=== PATIENT | male | born 1945 | race African-American/Black ===

== ENCOUNTER 2017-11-11 16:50 | Inpatient (IN) | payer BC, OTHER ==
--- NOTE | 2017-11-11 18:19 | RAD REPORT ---
EXAM DESCRIPTION: [facility] Single View11/11/2017 5:49 pm CLINICAL HISTORY: Chest pain COMPARISON: September 2017 FINDINGS: Mild bilateral pulmonary opacities are present. The heart is mildly enlarged. A central venous catheter has its limbs in the right atrium. Tracheosto my tube is in place IMPRESSION: Mild bilateral pulmonary opacities may represent pulmonary edema or pneumonia
[2017-11-11 18:25] LABS: Absolute Lymphocytes (CBC) 1.7 K/uL (0.7-4.9); Absolute Monocytes 0.7 K/uL (0.1-1.3); Absolute Neutrophil 5.4 K/uL (1.8-8.0); Basophils % 0.7 % (0-1.3); Eosinophils % 6.9 % (0-4.4); Hematocrit 35.2 % (39.6-49.0); Lymphocytes % 19.9 % (15.3-44.8); MCH 31.8 pg (27.0-35.0); MCV 99.5 fL (80-100); MPV 10.3 fL (7.6-11.3); Monocytes % 7.8 % (3.3-12.3); RBC Red Blood Cell Count 3.54 M/uL (4.33-5.43)
[2017-11-11 19:21] LABS: Potassium 5.5 mEq/L (3.6-5.0)
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
[2017-11-11] MEDS ORDERED: PIPER/TAZO/NS 3.375gm 3.375 GM/100 ML BAG ONE (20:57)
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
[2017-11-11] MEDS ORDERED: ONDANSETRON 4 MG/2 ML VIAL IV PRN (22:32)
[2017-11-12] MEDS ORDERED: levETIRAcetam 500 MG TAB PO ONE (00:19)
[2017-11-12] MEDS: PIPER/TAZO/NS 2.25gm 2.25 GM/50 ML BAG IVPB SCH ×3 (01:00→16:10)
[2017-11-12] MEDS: NEPRO 1,000 ML BOT FT SCH (03:05)
[2017-11-12] MEDS: HYDRALAZINE HCL 20 MG/ML VIAL IV PRN ×2 (03:38→06:34)
[2017-11-12] MEDS ORDERED: PIPERACIL/TAZO 2.25 GM VIAL IV ONE (03:50)
[2017-11-12] MEDS ORDERED: NA CHLORIDE 0.9% 50 ML ONE (03:51)
[2017-11-12] MEDS: INSULIN -REGULAR HUMAN 50 UNIT/0.5 ML ML SQ SCH ×3 (06:00→17:57)
[2017-11-12 06:09] LABS: Absolute Monocytes 0.6 K/uL (0.1-1.3); Absolute Neutrophil 5.7 K/uL (1.8-8.0); Basophils % 0.8 % (0-1.3); Hematocrit 35.9 % (39.6-49.0); Lymphocytes % 22.5 % (15.3-44.8); MCH 31.9 pg (27.0-35.0); MCV 98.8 fL (80-100); MPV 11.1 fL (7.6-11.3); Monocytes % 6.3 % (3.3-12.3); RBC Red Blood Cell Count 3.63 M/uL (4.33-5.43)
[2017-11-12 06:10] LABS: Potassium 5.7 mEq/L (3.6-5.0)
[2017-11-12 06:32] LABS: Magnesium 2.5 mg/dL (1.8-2.5)
[2017-11-12] MEDS ORDERED: INSULIN -REGULAR HUMAN 50 UNIT/0.5 ML ML SQ SCH (07:30)
[2017-11-12] MEDS: IPRATROPIUM BROM 0.5MG/2.5ML NEB PRN (07:56)
[2017-11-12] MEDS: ALBUTEROL 2.5 MG/3 ML NEB SOL NEB PRN (07:56)
[2017-11-12] MEDS: HEPARIN 5000 UNIT/ML 1 ML VIAL SQ SCH ×2 (08:42→22:52)
[2017-11-12] MEDS ORDERED: ENOXAPARIN 40 MG/0.4 ML SQ SCH (09:00)
[2017-11-12] MEDS ORDERED: GLUCAGON 1 MG/VIAL IM PRN (17:27)
[2017-11-12] MEDS ORDERED: D50W 25 GM/50 ML SYRINGE IV PRN (17:27)
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
[2017-11-13] MEDS: PIPER/TAZO/NS 2.25gm 2.25 GM/50 ML BAG IVPB SCH ×3 (01:13→16:25)
[2017-11-13] MEDS: NEPRO 1,000 ML BOT FT SCH (05:00)
[2017-11-13] MEDS: INSULIN -REGULAR HUMAN 50 UNIT/0.5 ML ML SQ SCH ×4 (06:00→17:35)
[2017-11-13] MEDS: ALBUTEROL 2.5 MG/3 ML NEB SOL NEB PRN ×2 (07:50→12:00)
[2017-11-13] MEDS: IPRATROPIUM BROM 0.5MG/2.5ML NEB PRN ×2 (07:50→12:00)
[2017-11-13] MEDS: LISINOPRIL 5 MG TAB PO SCH (08:33)
[2017-11-13] MEDS: HEPARIN 5000 UNIT/ML 1 ML VIAL SQ SCH ×2 (08:33→21:29)
--- NOTE | 2017-11-13 10:20 | RAD REPORT ---
EXAM DESCRIPTION: RAD - Chest Single View - 11/13/2017 9:32 am CLINICAL HISTORY: Pneumonia COMPARISON: November 11 TECHNIQUE: AP portable chest image was obtained 0920 hours . FINDINGS: Lung volumes are low on this portable study. Linear stranding in the right base is favored to be atelectasis but could be minimal interstitial infiltrate. No large consolidations seen. Left b ase assessment is limited due to overlying heart, portable technique and shallow inspiration. No aby s progression of prior date findings. The vasculature and central lung markings from the prior study have diminished in prominence. Trach tube remains in place. No measurable pleural effusion and no pne umothorax. No acute bone finding. Double-lumen dialysis catheter remains in place. Catheter tip remai ns in the right atrium. No acute aortic findings suspected. IMPRESSION: Partial clearing of the central edema pattern. Right base linear stranding is favored to be atelectasis but could be a minimal interstitial infiltra te. Shallow inspiration accentuates all chest findings. Double-lumen dialysis catheter remains in place with the tip in the right atrium.
[2017-11-13 11:04] LABS: Potassium 4.6 mEq/L (3.6-5.0)
--- NOTE | 2017-11-13 13:55 | PN ---
Date of Progress Note: 11/13/2017 Subjective: The patient doing well. No fever. No secretion. Physical Examination: Vital Signs: Blood pressure 178/93, pulse of 81. Afebrile. Chest: Clear to auscultation. Heart: S1, S2. Regular. Abdomen: Soft, nontender. Extremities: Bilateral amputee. Laboratory Data: WBC 8.9, H and H 11.6/35.9, platelets 170. Sodium 141, potassium 4.6, bicarb 33, B UN 47, creatinine of 2.8, GFR of 27, calcium 9.4. Medications: Current medications the patient is on include: 1.Zosyn. 2.Albuterol. 3.Heparin. 4.Lisinopril 5. 5.Keppra. Assessment And Plan: 1.End-stage renal disease. We will maintain the patient on dialysis Friday, Friday, Friday. I a m going to go ahead and arrange for dialysis tomorrow. 2.Anemia. No need for LUKASZ. 3.Pneumonia. I am going to follow up the culture. 4.Respiratory congestion secondary to over volume. The patient is better after dialysis. The patie nt is going to be cleared from the renal standpoint to discharged. JENNIFER Voice ID: [id number] Report ID: [id number]
--- NOTE | 2017-11-13 19:21 | PN ---
The patient is afebrile. His blood pressure was high. However, he is due to have dialysis. The pat ient has a decubitus ulcer. [facility] has been [facility]. They did not recommend any de bridement. DAVID/ALISON Voice ID: [id number] Report ID: [id number]
[2017-11-14] MEDS: PIPER/TAZO/NS 2.25gm 2.25 GM/50 ML BAG IVPB SCH ×2 (01:18→09:00)
[2017-11-14] MEDS ORDERED: NA CHLORIDE 0.9% 250 ML ONE (01:35)
[2017-11-14] MEDS: INSULIN -REGULAR HUMAN 50 UNIT/0.5 ML ML SQ SCH ×4 (06:00→18:00)
[2017-11-14] MEDS ORDERED: NA CHLORIDE 0.9% 1,000 ML IV PRN (09:10)
[2017-11-14] MEDS ORDERED: VANCOMYCIN 500 MG in NA CHLORIDE 0.9% 100 ML IVPB SCH (09:15)
[2017-11-14] MEDS ORDERED: VANCOMYCIN/NS 1 gm 1 GM/250 ML BAG IV SCH (10:00)
[2017-11-14] MEDS ORDERED: ALBUMIN HUMAN 25% 50 ML IV SCH (10:00)
[2017-11-14] MEDS: MANNITOL 25% 12.5 GM/50 ML VIAL IV PRN (10:31)
[2017-11-14] MEDS ORDERED: Meropenem 1,000 MG in NA CHLORIDE 0.9% 100 ML IV SCH (11:30)
[2017-11-14] MEDS: HEPARIN 5000 UNIT/ML 1 ML VIAL SQ SCH ×2 (12:34→21:00)
[2017-11-14] MEDS: LISINOPRIL 5 MG TAB PO SCH (12:34)
[2017-11-14] MEDS: IPRATROPIUM BROM 0.5MG/2.5ML NEB PRN (19:42)
[2017-11-14] MEDS: ALBUTEROL 2.5 MG/3 ML NEB SOL NEB PRN (19:42)
--- NOTE | 2017-11-14 21:13 | PN ---
The patient mentation is improved. His sputum cultures grew MRSA as well as gram-negative bacteria. Antibiotics are changed to vancomycin and meropenem. The patient probably would need extended antib iotics. rattan worker will be consulted to see whether it can be done as an outpatient. DAVID/ALISON Voice ID: [id number] Report ID: [id number]
--- NOTE | 2017-11-14 23:44 | PN ---
Date of Progress Note: 11/14/2017 Subjective: The patient with no event, afebrile. Objective: Vital Signs: When I saw the patient, blood pressure 136/67, pulse of 88. Chest: Clear to auscultation. Heart: S1, S2. Regular. Abdomen: Soft, nontender. Extremities: No edema. Laboratory Data: WBC 8.9, H and H 11.6/33.9. Sodium 141, potassium 4.6, bicarb 33, BUN 47, creatinine 2.8, calcium 9.4. Medications: Current medications the patient on is include, 1. Breathing treatment. 2. Hydralazine p.r.n. 3. Lisinopril 5. 4. Meropenem. 5. Vancomycin. Culture growing Klebsiella oxytoca and Pseudomonas and MRSA. Assessment And Plan: 1. End-stage renal disease. We will maintain the patient on dialysis. 2. Secondary hyperparathyroidism, stable. No need for binder. 3. Anemia, stable. 4. Decubitus ulcer. Start current antibiotic to include meropenem and vancomycin. 5. Pneumonia. Continue meropenem. JENNIFER Voice ID: [id number] Report ID: [id number] JACK
[2017-11-15] MEDS: NEPRO 1,000 ML BOT FT SCH (05:06)
[2017-11-15] MEDS: INSULIN -REGULAR HUMAN 50 UNIT/0.5 ML ML SQ SCH ×4 (06:00→17:57)
[2017-11-15] MEDS: HEPARIN 5000 UNIT/ML 1 ML VIAL SQ SCH ×2 (09:07→20:30)
[2017-11-15] MEDS: Meropenem 1,000 MG in NA CHLORIDE 0.9% 100 ML IV SCH (09:07)
[2017-11-15] MEDS: LISINOPRIL 5 MG TAB PO SCH (09:08)
--- NOTE | 2017-11-15 15:33 | PN ---
Date of Progress Note: 11/15/2017 Subjective: The patient doing better. Still growing multi organism. Started on antibiotic. Physical Examination: Vital Signs: When I saw the patient, blood pressure 158/83, pulse of 85, afebrile. Chest: Clear to auscultation. Heart: S1, S2. Systolic murmur. Extremities: Bilateral amputee. The patient had a trach and PICC. Laboratory Data: H and H 11.6/35.9, WBC 8.9. Sodium 141, potassium 4.6, bicarb 33, BUN 47, and crea tinine 2.8. Current Medications: The patient is on include; 1.Meropenem 1000 daily. 2.Vancomycin. 3.Hydralazine p.r.n. 4.Lisinopril 5 mg daily. 5.Breathing treatment. Assessment And Plan: 1.End-stage renal disease. We will maintain the patient on dialysis 3 times a week. 2.Anemia. No need for LUKASZ. 3.Secondary hyperparathyroid, stable. 4.Wound infection growing Klebsiella oxytoca, Enterobacter, and Pseudomonas and pneumonia growing Ps eudomonas and methicillin-resistant Staphylococcus aureus. Continue meropenem and vancomycin. We will follow up. 5.Hypertension, controlled, optimal, continue current medication. LUMA/ALISON Voice ID: [id number] Report ID: [id number]
--- NOTE | 2017-11-15 20:09 | PN ---
The patient is more alert and his temperature is normal. He has scattered wheeze bilaterally. The p emir will have Social Service consultation for outpatient IV antibiotic therapy as dictated by petrona gentile. DAVID/ALISON Voice ID: [id number] Report ID: [id number]
[2017-11-16] MEDS: INSULIN -REGULAR HUMAN 50 UNIT/0.5 ML ML SQ SCH ×4 (06:00→18:00)
[2017-11-16] MEDS: HEPARIN 5000 UNIT/ML 1 ML VIAL SQ SCH ×2 (08:47→20:38)
[2017-11-16] MEDS: Meropenem 1,000 MG in NA CHLORIDE 0.9% 100 ML IV SCH (08:47)
[2017-11-16] MEDS: LISINOPRIL 5 MG TAB PO SCH (08:48)
--- NOTE | 2017-11-16 13:55 | PN ---
The patient is stable and he is on two IV antibiotics due to his culture sensitivity. The patient has consultation from social service assistant regarding outpatient IV antibiotic therapy. Pending that he will be continued on IV antibiotics in the hospital. DAVID/ALISON Voice ID: [id number] Report ID: [id number]
[2017-11-16] MEDS: Levofloxacin 250mg IV 250 MG/50 ML BAG IV SCH (14:24)
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
--- NOTE | 2017-11-16 16:34 | PN ---
Date of Progress Note: 11/16/2017 Subjective: The patient doing the same. No event. Objective: Vital Signs: Blood pressure 139/76, pulse of 77, afebrile. Chest: Clear to auscultation. Heart: S1, S2. Regular. Abdomen: Soft. Nontender. Extremities: Bilateral above-knee amputation. Laboratory Data: H and H 11.6/35.9. Sodium 141, potassium 4.6, bicarb 33, BUN 47, creatinine 2.8, c alcium 9.5. Assessment And Plan: 1.End-stage renal disease. Stable normal volume currently. I am going to continue the patient on d ialysis. We will keep dialyze with sodium module and low tone temperature to avoid any hypotension. 2.Hyperkalemia status post dialysis, resolved. 3.Hypertension, controlled optimal. Continue current dose of lisinopril. 4.Wound infection, multi-organism. Continue meropenem. 5.Pneumonia, multi-organism, Pseudomonas and MRSA. Continue vancomycin and meropenem. We will foll ow up with the mental health social worker for arrangement of outpatient antibiotic. Medications: Current medications the patient is on include: 1.Meropenem 1 g daily. 2.Vancomycin. 3.Hydralazine p.r.n. 4.Lisinopril 5 daily. 5.Nepro. Case discussed with the primary hospitalist and charge nurse. JENNIFER Voice ID: [id number] Report ID: [id number]
[2017-11-16 19:25] LABS: HBsAG Nonreactive (Nonreactive)
[2017-11-17 05:56] LABS: Albumin 3.2 g/dL (3.2-5.5); Phosphorus 5.1 mg/dL (2.5-4.3); Potassium 3.9 mEq/L (3.6-5.0)
[2017-11-17] MEDS: INSULIN -REGULAR HUMAN 50 UNIT/0.5 ML ML SQ SCH ×4 (06:00→18:00)
[2017-11-17] MEDS: IPRATROPIUM BROM 0.5MG/2.5ML NEB PRN (07:54)
[2017-11-17] MEDS: ALBUTEROL 2.5 MG/3 ML NEB SOL NEB PRN (07:54)
[2017-11-17] MEDS: Meropenem 1,000 MG in NA CHLORIDE 0.9% 100 ML IV SCH (08:37)
[2017-11-17] MEDS: HEPARIN 5000 UNIT/ML 1 ML VIAL SQ SCH ×2 (08:38→20:46)
[2017-11-17] MEDS: LISINOPRIL 5 MG TAB PO SCH (08:38)
[2017-11-17] MEDS: MANNITOL 25% 12.5 GM/50 ML VIAL IV PRN (12:14)
[2017-11-17] MEDS: Levofloxacin 250mg IV 250 MG/50 ML BAG IV SCH (14:50)
[2017-11-17] MEDS: NEPRO 1,000 ML BOT FT SCH (15:46)
[2017-11-17] MEDS ORDERED: VANCOMYCIN 500 MG in NA CHLORIDE 0.9% 100 ML IVPB SCH (17:00)
[2017-11-17] MEDS ORDERED: VANCOMYCIN 500 MG in NA CHLORIDE 0.9% 100 ML IVPB ONE (20:00)
--- NOTE | 2017-11-17 22:41 | PN ---
The patient is doing okay. Afebrile. He is tolerating dialysis. I spoke to the nursing in charge o n the floor regarding his needed outpatient services of IV antibiotics. It looks like the plan has b een in progress. DAVID/ALISON Voice ID: [id number] Report ID: [id number]
--- NOTE | 2017-11-18 01:50 | PN ---
Date of Progress Note: 11/17/2017 Chief Complaint: End-stage renal disease, on dialysis. History Of Present Illness: The patient has end-stage renal disease, has been dialyzed 3 times per week. The patient was found to have hyperkalemia and received dialysis. Potassium level has improved and hyperkalemia resolved. The patient has multi-organism infection with nonhealing wound, and patient is on meropenem. The patient was found to have pneumonia with multi-organism Pseudomonas as well as MRSA and treatment was started with vancomycin and meropenem. Review of Systems: Unobtainable. The patient looks comfortable. The patient cannot survive review of the systems because he has history of dementia. Physical Examination: Lungs: Clear to auscultation bilaterally. Heart: S1, S2. Abdomen: Soft, benign. EXTREMITIES: Minimal peripheral edema. Laboratory Data: Hemoglobin 11.6, WBC 8.9, platelet count 170,000. Chemistries showed sodium 138, potassium 3.9, chloride 98, CO2 29, BUN 72, creatinine 4.20, phosphorus 5.1, calcium 9.4, albumin 3.2. Impression And Plan: 1. End-stage renal disease. Next dialysis tomorrow. 2. Pneumonia, nonhealing wound. The patient will continue dialysis. Next treatment will be done tomorrow and continue to monitor electrolytes closely. 3. Pneumonia and continue bronchodilator as needed and antibiotic coverage according to the sensitivity panel. 4. Hypoalbuminemia, malnutrition. Continue Nepro. 5. Hypertension. Blood pressure is optimized. The patient will continue lisinopril. There is no evidence of decompensated congestive heart failure at this point. SHAY/ALISON Voice ID: [id number] Report ID: [id number] JACK
[2017-11-18] MEDS: INSULIN -REGULAR HUMAN 50 UNIT/0.5 ML ML SQ SCH ×4 (06:00→18:00)
[2017-11-18 06:21] LABS: Albumin 3.3 g/dL (3.2-5.5); Phosphorus 3.5 mg/dL (2.5-4.3); Potassium 4.1 mEq/L (3.6-5.0)
[2017-11-18] MEDS: LISINOPRIL 5 MG TAB PO SCH ×2 (08:58→22:35)
[2017-11-18] MEDS: HEPARIN 5000 UNIT/ML 1 ML VIAL SQ SCH ×2 (08:58→22:34)
[2017-11-18] MEDS: HYDRALAZINE HCL 20 MG/ML VIAL IV PRN (08:58)
[2017-11-18] MEDS: Meropenem 1,000 MG in NA CHLORIDE 0.9% 100 ML IV SCH (09:01)
--- NOTE | 2017-11-18 16:45 | PN ---
Subjective: The patient is lying in bed, on trach collar. No new acute events. Chart reviewed. Th e patient is currently on IV antibiotics including meropenem and vancomycin. Objective: Vital Signs: Temperature 97, pulse 78, respirations 18, blood pressure 211/99. HEENT: Unremarkable. Neck: Supple. Lungs: Basal crackles. Heart: S1, S2. Regular. Extremities: No edema. Sacral wound noted. Laboratory Data: Shows WBC 8.9, hemoglobin 11.6, platelets 170. Chemistry shows sodium 140, potassi um 4.1, chloride 101, bicarb 29, BUN 42, creatinine 2.88, glucose is 105. Micro data shows Klebsiell a oxytoca and Strep agalactiae in sacral wound, abdominal wound Enterobacter and Pseudomonas, sputum Pseudomonas and MRSA. Assessment And Plan: Methicillin-resistant Staphylococcus aureus, pneumonia, and multidrug-resistant Pseudomonas infection to the abdominal wound, also sacral wound with Streptococcus agalactiae and Kl ebsiella. Continue antibiotics for a total of 3 weeks. We will follow the patient as needed. LEO/ALISON Voice ID: [id number] Report ID: [id number]
--- NOTE | 2017-11-18 19:24 | PN ---
Date of Progress Note: 11/18/2017 Subjective: The patient is doing well. No event. Afebrile. Physical Examination: Vital Signs: Blood pressure 174/95, temperature 82. Chest: Clear to auscultation. Heart: S1, S2. Regular. Abdomen: Soft nontender. Extremities: Bilateral amputee. Laboratory Data: WBC 8.9, H and H 11.6/35.9, platelets 170. Sodium 140, potassium 4.1, bicarb 29, B UN 42, creatinine 2.8, calcium 9.4, phosphorus 3.5, albumin 3.3. Medications: Current medications the patient is on include meropenem, vancomycin, lisinopril 5 mg. Assessment And Plan: 1.End-stage renal disease. Normal volume. We will continue the patient on dialysis Friday, ay, Friday. 2.Secondary hyperparathyroidism stable. No need for binder. 3.Anemia. No need for LUKASZ. 4.Hypertension. I am going to go ahead and increase lisinopril to twice a day. The patient used to have low blood pressure on dialysis, we will follow up. 5.Pneumonia, multi-organism, with decubitus ulcer. Continue current antibiotic. Plan for LTAC for IV antibiotic. JENNIFER Voice ID: [id number] Report ID: [id number]
[2017-11-18] MEDS: NEPRO 1,000 ML BOT FT SCH (22:37)
[2017-11-19] MEDS: HYDRALAZINE HCL 20 MG/ML VIAL IV PRN ×2 (01:15→09:24)
--- NOTE | 2017-11-19 01:49 | PN ---
The patient is afebrile. I have not received any information regarding arranging outpatient IV antib iotic therapy. I spoke to the charge nurse. She is not aware of any arrangements. DAVID/ALISON Voice ID: [id number] Report ID: [id number]
[2017-11-19 05:50] LABS: Albumin 3.2 g/dL (3.2-5.5); Magnesium 2.3 mg/dL (1.8-2.5); Phosphorus 4.5 mg/dL (2.5-4.3); Potassium 4.2 mEq/L (3.6-5.0)
[2017-11-19] MEDS: INSULIN -REGULAR HUMAN 50 UNIT/0.5 ML ML SQ SCH ×4 (06:00→17:59)
--- NOTE | 2017-11-19 06:31 | PN ---
I was told by the charge nurse that the patient needs to go to LTAC and family would like place in [facility]. This is in the process of being arranged. DAVID/ALISON Voice ID: [id number] Report ID: [id number]
[2017-11-19] MEDS: HEPARIN 5000 UNIT/ML 1 ML VIAL SQ SCH ×2 (08:34→21:10)
[2017-11-19] MEDS: Meropenem 1,000 MG in NA CHLORIDE 0.9% 100 ML IV SCH (08:34)
[2017-11-19] MEDS: LISINOPRIL 5 MG TAB PO SCH ×2 (08:35→21:11)
--- NOTE | 2017-11-19 15:34 | PN ---
Date of Progress Note: 11/19/2017 Subjective: The patient has no event. Still afebrile. Waiting for LTAC setup. Physical Examination: Vital Signs: When I saw the patient, blood pressure 177/86, pulse of 81, afebrile. Chest: Clear to auscultation. Heart: S1, S2. Regular. Abdomen: Soft, nontender. Extremities: Bilateral amputee. Laboratory Data: H and H 11.6/35.9. Sodium 141, potassium 4.2, bicarb 30, BUN 62, creatinine 3.7, c alcium 9.5, phosphorus 4.5. Medications: Current medications the patient on its include; 1.Meropenem. 2.Vancomycin. 3.Albuterol. 4.Lisinopril 5 b.i.d. 5.Zofran. Assessment And Plan: 1.End-stage renal disease, stable, normal volume. We will continue dialysis per schedule. 2.Hypertension. Blood pressure still elevated. We just adjust the lisinopril. We will follow up [facility] after dialysis. 3.Multi-organism infection included decubitus ulcer and pneumonia. Continue meropenem and vancomyci n. Waiting for LTAC setup for long-term antibiotic. We will follow up with ID. LUMA/ALISON Voice ID: [id number] Report ID: [id number]
[2017-11-19] MEDS: ALBUTEROL 2.5 MG/3 ML NEB SOL NEB PRN (20:05)
[2017-11-19] MEDS: IPRATROPIUM BROM 0.5MG/2.5ML NEB PRN (20:05)
--- NOTE | 2017-11-19 20:51 | PN ---
Subjective: The patient lying in bed. Not in any acute distress. Nonverbal. Objective: Vital Signs: Temperature 97.6, pulse 80, respiration 18, blood pressure 184/83. Lungs: Basal crackles. Heart: S1, S2. Regular. Abdomen: Soft, nontender. Bowel sounds positive. Extremities: Bilateral AKA. Laboratory Data: No new lab data available for chemistries. Chemistry is sodium 141, potassium 4.2, chloride 100, bicarb 30, BUN 62, creatinine 3.7, glucose is 108. Current antibiotic includes merope nem and vancomycin. Micro data positive for Klebsiella oxytoca from sacral wound and strep agalactia e from sacral wound. Abdominal wound has Enterobacter and Pseudomonas. Sputum cultures positive for Pseudomonas and MRSA. Continue vanc. Assessment And Plan: Pseudomonas, methicillin-resistant Staphylococcus aureus, pneumonia. Sacral wound healing and abdominal wound healing. Continue antibiotic and wound care. W e will consider long-term acute care. We will follow the patient as needed. NF/MODL Voice ID: [id number] Report ID: [id number]
[2017-11-20] MEDS: HYDRALAZINE HCL 20 MG/ML VIAL IV PRN (00:10)
[2017-11-20 05:31] LABS: Albumin 3.3 g/dL (3.2-5.5); Phosphorus 5.4 mg/dL (2.5-4.3)
[2017-11-20 05:39] LABS: Potassium 4.7 mEq/L (3.6-5.0)
[2017-11-20] MEDS: INSULIN -REGULAR HUMAN 50 UNIT/0.5 ML ML SQ SCH ×4 (06:00→17:09)
[2017-11-20] MEDS: NEPRO 1,000 ML BOT FT SCH ×2 (06:04→20:24)
[2017-11-20] MEDS: HEPARIN 5000 UNIT/ML 1 ML VIAL SQ SCH ×2 (09:07→20:26)
[2017-11-20] MEDS: LISINOPRIL 5 MG TAB PO SCH ×3 (09:08→21:00)
[2017-11-20] MEDS: Meropenem 1,000 MG in NA CHLORIDE 0.9% 100 ML IV SCH (09:08)
[2017-11-21] MEDS: HYDRALAZINE HCL 20 MG/ML VIAL IV PRN (01:09)
[2017-11-21] MEDS ORDERED: VANCOMYCIN 500 MG/VIAL ONE (01:21)
[2017-11-21] MEDS ORDERED: NA CHLORIDE 0.9% 100 ML ONE (01:26)
--- NOTE | 2017-11-21 03:09 | PN ---
Date of Progress Note: 11/20/2017 Subjective: The patient doing well. No nausea. No vomiting. Still on the trach. Objective: Vital Signs: Blood pressure 152/70, pulse of 75, afebrile. Chest: Crackles in the base. Heart: S1, S2. Regular. Abdomen: Soft, nontender. Extremities: Bilateral amputee. Laboratory Data: H and H 11.6/35.9. Sodium 141, potassium 4.7, bicarb 24, BUN 79, creatinine 4.5, c alcium 9.5, phosphorus 5.4. Medications: Current medications the patient on is include, 1.Meropenem. 2.Vancomycin. 3.Lisinopril 5 mg b.i.d. 4.Breathing treatment. Assessment And Plan: 1.End-stage renal disease. Normal volume. We will arrange for dialysis today and we will follow up . 2.Secondary hyperparathyroidism, stable. 3.Hypertension, controlled, optimal. We will follow up with blood pressure after dialysis. 4.Pneumonia. Continue current antibiotic. 5.Decubitus ulcer, multi organism. Continue meropenem and vancomycin. Follow up with ID. The viviane ent planned for transfer to LTAC. JENNIFER Voice ID: [id number] Report ID: [id number]
[2017-11-21 05:54] LABS: Albumin 3.3 g/dL (3.2-5.5); Phosphorus 3.5 mg/dL (2.5-4.3); Potassium 3.7 mEq/L (3.6-5.0)
[2017-11-21] MEDS: INSULIN -REGULAR HUMAN 50 UNIT/0.5 ML ML SQ SCH ×4 (06:00→17:43)
--- NOTE | 2017-11-21 07:39 | PN ---
Date of Progress Note: 11/20/2017 The patient was supposed to be transferred, all arrangements were made for transfer. However, the pa nancy's family did not agree with the transfer plan. She wanted her to stay for another few days. Social Service and Administration were involved in this decision. The patient had cancellatio n of his transfer. DAVID/ALISON Voice ID: [id number] Report ID: [id number]
[2017-11-21] MEDS: IPRATROPIUM BROM 0.5MG/2.5ML NEB PRN (08:13)
[2017-11-21] MEDS: HEPARIN 5000 UNIT/ML 1 ML VIAL SQ SCH ×2 (09:48→20:43)
[2017-11-21] MEDS: Meropenem 1,000 MG in NA CHLORIDE 0.9% 100 ML IV SCH (09:48)
[2017-11-21] MEDS: LISINOPRIL 5 MG TAB PO SCH ×2 (09:49→20:41)
--- NOTE | 2017-11-21 16:15 | PN ---
Subjective: The patient is lying in bed, opens eyes spontaneously, not in any acute distress. No di arrhea. No new wounds. Objective: Vital Signs: Temperature 98, pulse 70, respirations 16, blood pressure 130/70. Lungs: Basal crackles. Heart: S1, S2. Regular. Abdomen: Soft, nontender. Bowel sounds positive. Extremity: Bilateral AKA, sacral wound noted. SANCHEZ catheter and IV line in place. Laboratory Data: There is no new CBC available. BMP shows sodium 134, potassium 3.7, chloride 96, b icarb 29, BUN 38, creatinine 2.5, glucose is 129. Microdata shows MRSA Pseudomonas in sputum, Entero bacter and Pseudomonas in abdominal wound, and Klebsiella and Strep agalactiae in sacral wound. Assessment And Plan: Methicillin-resistant Staphylococcus aureus pneumonia. Abdominal and sacral wo und healing well. Continue IV antibiotic and wound care. We will follow the patient as needed. NF/MODL Voice ID: [id number] Report ID: [id number]
[2017-11-21] MEDS: NEPRO 1,000 ML BOT FT SCH (20:44)
--- NOTE | 2017-11-21 21:42 | PN ---
Date of Progress Note: 11/21/2017 Subjective: The patient had no event, waiting for the transfer to LTAC on Friday. Objective: Vital Signs: Blood pressure 142/69, pulse of 81, afebrile. Chest: Clear to auscultation. Heart: S1, S2. Regular. Abdomen: Soft, nontender. Extremities: Bilateral amputee. The patient is status post dialysis yesterday, managed to remove 1400. Laboratory Data: WBC 8.9, H and H 11.6/35.9. Sodium 134, potassium 3.7, bicarb 29, BUN 38, creatini ne 2.5, calcium 9.3. Medications: Current medications the patient on is include, 1.Meropenem. 2.Vancomycin. 3.Lisinopril 5 b.i.d. 4.Nepro. 5.Ipratropium. Assessment And Plan: 1.End-stage renal disease. Normal volume. We will continue the patient on dialysis, Friday, , Friday. 2.Secondary hyperparathyroidism, stable. No need for binder. 3.Hypertension, controlled, optimal. Continue current dose of lisinopril. 4.Pneumonia and decubitus ulcer. We will follow up ID. Continue current antibiotic. JENNIFER Voice ID: [id number] Report ID: [id number]
[2017-11-22] MEDS: HYDRALAZINE HCL 20 MG/ML VIAL IV PRN (01:31)
[2017-11-22] MEDS: INSULIN -REGULAR HUMAN 50 UNIT/0.5 ML ML SQ SCH ×4 (05:21→18:00)
[2017-11-22] MEDS: HEPARIN 5000 UNIT/ML 1 ML VIAL SQ SCH ×2 (09:15→22:52)
[2017-11-22] MEDS: Meropenem 1,000 MG in NA CHLORIDE 0.9% 100 ML IV SCH (09:15)
[2017-11-22] MEDS: LISINOPRIL 5 MG TAB PO SCH ×2 (09:15→22:49)
[2017-11-22] MEDS: NEPRO 1,000 ML BOT FT SCH (22:51)
[2017-11-22] MEDS ORDERED: FUROSEMIDE 40 MG/4 ML VIAL IV ONE (22:58)
[2017-11-23] MEDS ORDERED: FUROSEMIDE 40 MG/4 ML VIAL IV ONE ×2 (01:00→11:46)
--- NOTE | 2017-11-23 01:37 | PN ---
Date of Progress Note: 11/22/2017 Subjective: This patient is more awake. Physical Examination: Vital Signs: Blood pressure 172/88, pulse of 83. Chest: Clear to auscultation. Heart: S1, S2. Regular. Abdomen: Soft, nontender. PEG tube. EXTREMITIES: Bilateral above knee amputation. Medications: Current medications the patient on include; 1.Meropenem. 2.Vancomycin. 3.Albuterol. 4.Heparin. 5.lisinopril 5 mg twice a day. 6.Breathing treatment. Laboratory Data: H and H 11.6 and 35.9. Sodium of 134, potassium 3.7, bicarb 29. BUN 28, creatinin e 2.5 that was yesterday post dialysis. Calcium 9.3. His creatinine predialysis is 4.5. GFR of 15. Assessment And Plan: 1.End-stage renal disease secondary to acute tubular necrosis, possibly has some recovery. I am goi ng to go ahead and do 24-hour urine collection and we will follow up. 2.Hypertension. Controlled, optimal. Continue current medication. We will give single dose of Las ix. 3.Decubitus ulcer. Multidrug organism. Continue current antibiotic. 4.Pneumonia, continue current antibiotic. JENNIFER Voice ID: [id number] Report ID: [id number]
[2017-11-23] MEDS: HYDRALAZINE HCL 20 MG/ML VIAL IV PRN (02:41)
[2017-11-23 03:52] LABS: Urine Appearance TURBID; Urine Bilirubin NEGATIVE (NEG); Urine Blood 2+ (NEG); Urine Color YELLOW; Urine Glucose NEGATIVE (NEG); Urine Protein 2+ (NEG); Urine Urobilinogen 0.2 mg/dL (0.2-1.0); Urine pH 6.5 (5.0-7.0)
[2017-11-23 03:58] LABS: Urine Microscopic Reflex ORDER UMIC
[2017-11-23 04:41] LABS: Urine Bacteria LOADED /HPF (NONE SEEN); Urine Culture Reflex Order REFLEXED; Urine RBC <5 /HPF (NONE SEEN); Urine Yeast MANY (NONE SEEN); Urine Yeast with Hyphae PRESENT
[2017-11-23] MEDS: INSULIN -REGULAR HUMAN 50 UNIT/0.5 ML ML SQ SCH ×4 (06:00→17:43)
[2017-11-23] MEDS: LISINOPRIL 5 MG TAB PO SCH (10:16)
[2017-11-23] MEDS: HEPARIN 5000 UNIT/ML 1 ML VIAL SQ SCH ×2 (10:16→22:18)
[2017-11-23] MEDS: Meropenem 1,000 MG in NA CHLORIDE 0.9% 100 ML IV SCH (10:18)
[2017-11-23 11:51] LABS: Absolute Lymphocytes (CBC) 1.5 K/uL (0.7-4.9); Absolute Monocytes 0.5 K/uL (0.1-1.3); Absolute Neutrophil 4.7 K/uL (1.8-8.0); Basophils % 0.5 % (0-1.3); Hematocrit 29.2 % (39.6-49.0); Lymphocytes % 21.5 % (15.3-44.8); MCH 31.9 pg (27.0-35.0); MCV 98.3 fL (80-100); MPV 11.6 fL (7.6-11.3); Monocytes % 6.9 % (3.3-12.3); RBC Red Blood Cell Count 2.97 M/uL (4.33-5.43)
[2017-11-23 12:00] LABS: Potassium 4.6 mEq/L (3.6-5.0)
[2017-11-23 12:06] LABS: Albumin 3.1 g/dL (3.2-5.5); Bilirubin Total 0.5 mg/dL (0.3-1.2)
--- NOTE | 2017-11-23 17:20 | PN ---
Date of Progress Note: 11/23/2017 NEPHROLOGY FOLLOWUP Subjective: The patient is doing the same. No event. Afebrile. Last dialysis was on the e patient yesterday we tried for collection of urine output. Denise could not be inserted. The patie nt's condom catheter came out multiple time. Physical Examination: Vital Signs: Blood pressure 142/74, pulse of 82. The patient on general had almost 200 of urine out put whatever collected. The rest is been wasted. Chest: Clear to auscultation. Heart: S1, S2. Regular. Abdomen: Soft. Nontender. PEG tube. Extremities: Bilateral amputee. Laboratory Data: H and H are still pending. Latest lab data on the , which is postdialysis sodi um 134, potassium 3.7, bicarb 29, BUN 38, creatinine 2.5. Reviewing the record, predialysis creatini ne on the was 4.5, and on the 4.2, on the was not done, on the was 4. GFR respec tively on the was 18, 17, on the was 15. Medications: Current medication the patient on include meropenem, vancomycin, heparin, lisinopril 5 b.i.d., Nepro. Assessment And Plan: 1.Acute kidney injury/end-stage renal disease. I am going to go ahead and follow up the chemistry t carissa depending on that we will decide if the patient showing any recovery. We will try to hold on dialysis and watch for response. 2.In the presence of the questionable recovery, I am going to give him 1 dose of Lasix again and I a m going to get to hold KERRI inhibitor and we will follow up. 3.Hypertension, giving the possible of kidney recovery. I am going to hold on the KERRI inhibitor. W e will place the patient on carvedilol to avoid any contribution for the kidney function, we will sta rt with 6.25. As I mentioned, we going to give the patient extra dose of Lasix today, and we will fo llow up. Depending on the chemistry today, we will decide about needing another session of dialysis. 4.Pneumonia, decubitus ulcer. Follow up ID. Continue current antibiotic. Follow up vancomycin tro ugh. 5.Bed bound. Continue supportive treatment. Case discussed with the primary nurse and with the family. JENNIFER Voice ID: [id number] Report ID: [id number]
--- NOTE | 2017-11-23 19:07 | RAD REPORT ---
EXAM DESCRIPTION: [facility] Single View11/23/2017 6:44 pm CLINICAL HISTORY: Chest pain COMPARISON: Shortness of breath FINDINGS: The bilateral pulmonary opacities mostly resolved. The heart is mildly enlarged. A tracheo stomy tube is present Central venous catheter remains place
--- NOTE | 2017-11-23 21:35 | PN ---
I spoke to the , who is present in the room today regarding his future care. He will be transfer red tomorrow for extended IV antibiotic therapy. Nephrology notes were reviewed and reassessment of kidney function has been initiated. The patient meanwhile will be continued on the same antibiotics. DAVID/ALISON Voice ID: [id number] Report ID: [id number]
[2017-11-23] MEDS: CARVEDILOL 6.25 MG TAB PO SCH (22:17)
[2017-11-23] MEDS: NEPRO 1,000 ML BOT FT SCH (22:22)
[2017-11-24 05:26] LABS: Albumin 3.2 g/dL (3.2-5.5); Magnesium 2.7 mg/dL (1.8-2.5); Phosphorus 7.1 mg/dL (2.5-4.3); Potassium 4.6 mEq/L (3.6-5.0)
[2017-11-24] MEDS: INSULIN -REGULAR HUMAN 50 UNIT/0.5 ML ML SQ SCH ×4 (05:46→18:00)
[2017-11-24] MEDS: IPRATROPIUM BROM 0.5MG/2.5ML NEB PRN (08:45)
[2017-11-24] MEDS: ALBUTEROL 2.5 MG/3 ML NEB SOL NEB PRN (08:45)
[2017-11-24] MEDS: HEPARIN 5000 UNIT/ML 1 ML VIAL SQ SCH ×2 (09:13→22:16)
[2017-11-24] MEDS: Meropenem 1,000 MG in NA CHLORIDE 0.9% 100 ML IV SCH (09:13)
[2017-11-24] MEDS: CARVEDILOL 6.25 MG TAB PO SCH ×2 (09:13→22:16)
--- NOTE | 2017-11-24 15:33 | PN ---
Subjective: The patient is lying in bed, not in any acute distress. Opens eyes spontaneously. No n ew complaints. Objective: Vital Signs: Temperature 97.8, pulse 78, respirations 16, blood pressure 101/57. Lungs: Basal crackles. Heart: S1, S2. Regular. Abdomen: Soft, nontender. Bowel sounds positive. Extremities: No edema. Sacral wound noted. Abdominal wound noted. Laboratory Data: WBC 6.8, hemoglobin 9.5, platelets 143. Chemistry shows sodium 136, potassium 4.6, chloride 95, bicarb 31, BUN 96, creatinine 4.8, glucose is 96. Assessment And Plan: Methicillin-resistant Staphylococcus aureus pneumonia. Sacral wound and abdomi nal wound. Continue antibiotic and wound care. We will follow the patient as needed. NF/MODL Voice ID: [id number] Report ID: [id number]
[2017-11-24 22:35] VITALS: O2SAT 97
[2017-11-24] MEDS ORDERED: FUROSEMIDE 40 MG/4 ML VIAL IV ONE (22:56)
[2017-11-25] MEDS: NEPRO 1,000 ML BOT FT SCH (00:53)
--- NOTE | 2017-11-25 01:49 | PN ---
Date of Progress Note: 11/24/2017 Subjective: The patient had no event. The patient's last dialysis last . Tolerated the jose francisco lysis very well. The patient had undocumented urine output. Physical Examination: Vital Signs: When I saw the patient, blood pressure of 148/71, pulse of 74. Afebrile. Chest: Clear to auscultation. Heart: S1, S2. Regular. Abdomen: Soft, nontender. PEG tube. Extremities: Bilateral amputee. Laboratory Data: WBC 6.8, H and H 9.5/29.2, platelet 143. Sodium 136, potassium 4.6, bicarb 31. BU N 96, creatinine 4.8, calcium 9.8. Phosphorus 7.1, magnesium 2.7. Current Medications: The patient on include; 1.Meropenem. 2.Vancomycin. 3.Breathing treatment. 4.Heparin. 5.Carvedilol 6.25. 6.Lasix, received yesterday. 7.Mannitol. 8.Zofran. Assessment And Plan: 1.End-stage renal disease/acute kidney injury. Nonoliguric. No hyperkalemia. I am going to keep h olding on the dialysis for today. Also we will follow up the chemistry. 2.Hypertension, controlled, optimal. 3.Anemia. Continue Epogen. 4.Secondary hyperparathyroidism. We will monitor the patient. 5.Decubitus ulcer and pneumonia, multi organism. Continue current antibiotic for the time being. JENNIFER Voice ID: [id number] Report ID: [id number]
[2017-11-25] MEDS: INSULIN -REGULAR HUMAN 50 UNIT/0.5 ML ML SQ SCH ×2 (06:00)
[2017-11-25 06:07] LABS: Albumin 3.2 g/dL (3.2-5.5); Phosphorus 7.8 mg/dL (2.5-4.3); Potassium 5.2 mEq/L (3.6-5.0)
[2017-11-25 06:37] VITALS: BMI 43.9
--- NOTE | 2017-11-25 09:19 | PN ---
The patient was seen yesterday. I spoke to the regarding the transfer as well as reassessment o f dialysis status. The patient did have elevation of creatinine. However, the patient is being foll owed by a preprint analyst to see whether dialysis needs to be resumed or he can be observed. This was e xplained to . The patient is afebrile and his mentation has not changed. DAVID/ALISON Voice ID: [id number] Report ID: [id number]
[2017-11-25 10:19] VITALS: BP 162/77; TEMP 97.4
--- NOTE | 2017-12-15 00:26 | DS ---
Date of Discharge: 11/25/2017 Date Of Transfer: 11/25/2017. Final Diagnoses: 1.Aspiration pneumonia. 2.End-stage renal disease, on dialysis. 3.Hypertension. 4.Type 2 diabetes. 5.Functional quadriplegia status. 6.Feeding tube status. 7.Old cerebrovascular accident. 8.Bedsore. Hospital Course: This patient was admitted through the emergency room because of history of aspirati on and pneumonia. The patient was started on IV antibiotics. The patient also was seen by Dr. Yumiko andrew in need of dialysis. The patient was also seen by Dr. Velázquez, Pulmonary, because of the aspira tion. The patient received IV Zosyn. The patient subsequently was seen by Infectious Disease consul tant, Dr. Olivia, who felt that the patient needed a prolonged course of antibiotic based on his eval uation. At this point, transfer to [facility] was initiated. The patient was eventually transferred to [facility] for further care on 11/25/2017. Laboratory Data: Please refer to the chart. DAVID/ALISON Voice ID: [id number] Report ID: [id number]
== END 2017-11-25 08:56 | DRG 177 ==
LOC: ER 16:50 → ERHOLD 20:38 → 2ND 21:39
PROVIDERS: ADMIT Internal Medicine; ATTEND Internal Medicine
PROC: 5A1D70Z Performance of Urinary Filtration, Intermittent, Less than 6 Hours Per Day (ICD-10-PCS; principal; 2017-11-12)
PROC: 5A1D70Z Performance of Urinary Filtration, Intermittent, Less than 6 Hours Per Day (ICD-10-PCS; 2017-11-14)
PROC: 5A1D70Z Performance of Urinary Filtration, Intermittent, Less than 6 Hours Per Day (ICD-10-PCS; 2017-11-17)
PROC: 5A1D70Z Performance of Urinary Filtration, Intermittent, Less than 6 Hours Per Day (ICD-10-PCS; 2017-11-20)
DX: J15.212 Pneumonia due to Methicillin resistant Staphylococcus aureus (principal); N18.6 End stage renal disease; N17.0 Acute kidney failure with tubular necrosis; I12.0 Hypertensive chronic kidney disease with stage 5 chronic kidney disease or end stage renal disease; N25.81 Secondary hyperparathyroidism of renal origin; E11.22 Type 2 diabetes mellitus with diabetic chronic kidney disease; E87.5 Hyperkalemia; D64.9 Anemia, unspecified; L89.159 Pressure ulcer of sacral region, unspecified stage; Z99.2 Dependence on renal dialysis; Z89.519 Acquired absence of unspecified leg below knee; Z74.01 Bed confinement status
CPT/HCPCS: 36415; 71045; 80048; 80053; 80069; 80202; 81003; 81015; 82962; 83735; 84145; 85025; 86317; 86704; 86706; 87040; 87070; 87077; 87086; 87088; 87186; 87205; 87340; 87804; 90935; 94760; 96365; 99285; J0360; J1644; J2150; J2543; P9047

== ENCOUNTER 2018-03-06 16:05 | Inpatient (IN) | payer BC, OTHER ==
[2018-03-06 17:33] LABS: Absolute Monocytes 0.9 K/uL (0.1-1.3); Absolute Neutrophil 8.1 K/uL (1.8-8.0); Basophils % 0.5 % (0-1.3); Hematocrit 32.2 % (39.6-49.0); Lymphocytes % 9.9 % (15.3-44.8); MCH 32.1 pg (27.0-35.0); MCV 97.5 fL (80-100); MPV 10.6 fL (7.6-11.3); Monocytes % 8.2 % (3.3-12.3)
[2018-03-06 17:38] LABS: Protime INR 1.08
[2018-03-06] MEDS ORDERED: ALBUTEROL 2.5 MG/3 ML NEB SOL ONE (17:41)
[2018-03-06] MEDS ORDERED: IPRATROPIUM BROM 0.5MG/2.5ML ONE (17:41)
--- NOTE | 2018-03-06 17:44 | RAD REPORT ---
EXAM DESCRIPTION: [facility] Single View03/06/2018 5:23 pm CLINICAL HISTORY: sob COMPARISON: February 23, 2018 FINDINGS: Mild bilateral pulmonary opacities are present. The heart is mildly to moderately enlarged . Central venous catheter remains in place IMPRESSION: Mild bilateral pulmonary opacities may represent mild pulmonary edema
[2018-03-06 17:53] LABS: Albumin 2.8 g/dL (3.4-5.0); Bilirubin Direct 0.1 mg/dL (0-0.2); Bilirubin Total 0.3 mg/dL (0.2-1.0); CKMB Creatine Kinase MB 2.1 ng/mL (0.3-3.6); Magnesium 3.5 mg/dL (1.8-2.4); Potassium 4.5 mmol/L (3.5-5.1); Protein, Total 8.3 g/dL (6.4-8.2)
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
[2018-03-06] MEDS ORDERED: FUROSEMIDE 40 MG/4 ML VIAL ONE (19:31)
[2018-03-06] MEDS ORDERED: IPRATROPIUM BROM 0.5MG/2.5ML NEB PRN (22:19)
[2018-03-06] MEDS ORDERED: ALBUTEROL 2.5 MG/3 ML NEB SOL NEB PRN (22:19)
[2018-03-07] MEDS ORDERED: D50W 25 GM/50 ML SYRINGE IV PRN (00:42)
[2018-03-07] MEDS ORDERED: GLUCAGON 1 MG/VIAL IM PRN (00:42)
[2018-03-07 06:26] LABS: Absolute Lymphocytes (CBC) 1.7 K/uL (0.7-4.9); Absolute Monocytes 0.9 K/uL (0.1-1.3); Absolute Neutrophil 6.6 K/uL (1.8-8.0); Basophils % 0.9 % (0-1.3); Eosinophils % 8.1 % (0-4.4); Hematocrit 30.8 % (39.6-49.0); Lymphocytes % 16.8 % (15.3-44.8); MCV 96.3 fL (80-100); MPV 11.2 fL (7.6-11.3); Monocytes % 8.6 % (3.3-12.3)
[2018-03-07 06:40] LABS: Potassium 4.9 mmol/L (3.5-5.1)
[2018-03-07] MEDS ORDERED: FUROSEMIDE 20 MG/ 2ML VIAL IV SCH (09:00)
[2018-03-07] MEDS ORDERED: ALPRAZOLAM 0.25 MG TABLET FT PRN (09:05)
[2018-03-07] MEDS ORDERED: ACETAMINOPHEN 325 MG TABLET PO PRN (09:05)
[2018-03-07] MEDS: Pantoprazole (granules) 40 MG/BLIST PACKET FT SCH (10:25)
--- NOTE | 2018-03-07 10:29 | EKG ---
Test Date: 2018-03-06 Test Time: 16:48:35 Production Recorder: JAKE MEASUREMENT RESULTS: Intervals: Rate: 68 DE: 220 QRSD: 82 QT: 428 QTc: 455 [place]: P: 36 DE: 220 QRS: 64 T: -18 INTERPRETIVE STATEMENTS: Sinus rhythm with 1st degree AV block Possible Left atrial enlargement T wave abnormality, consider inferior ischemia Abnormal ECG Compared to ECG 10/09/2017 13:01:51 First degree AV block now present T-wave abnormality now present Possible ischemia now present Myocardial infarct finding no longer present Electronically Signed On 03-07-18 10:27:18 CDT by Weston Powell
[2018-03-07] MEDS: INSULIN -REGULAR HUMAN 50 UNIT/0.5 ML ML SQ SCH ×2 (12:00→18:00)
[2018-03-07] MEDS ORDERED: EPOETIN ALFA 10,000 UNIT/ML VIAL SQ SCH (14:30)
[2018-03-07] MEDS: ALBUTEROL 2.5 MG/3 ML NEB SOL NEB SCH ×2 (16:38→20:37)
[2018-03-07] MEDS: IPRATROPIUM BROM 0.5MG/2.5ML NEB SCH ×2 (16:38→20:37)
[2018-03-07] MEDS: cloNIDine HCl 0.1 MG TAB FT SCH (17:07)
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
[2018-03-07] MEDS: CARVEDILOL 25 MG TAB FT SCH (20:44)
[2018-03-07] MEDS: levETIRAcetam 500 MG TAB FT SCH (20:44)
[2018-03-07] MEDS: ATORVASTATIN 40 MG TAB FT SCH (20:44)
[2018-03-08] MEDS: cloNIDine HCl 0.1 MG TAB FT SCH ×3 (00:29→17:07)
[2018-03-08] MEDS: ALBUTEROL 2.5 MG/3 ML NEB SOL NEB SCH ×4 (01:01→20:26)
[2018-03-08] MEDS: IPRATROPIUM BROM 0.5MG/2.5ML NEB SCH ×4 (01:01→20:26)
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
[2018-03-08] MEDS: NEPRO 1,000 ML BOT FT SCH (03:29)
[2018-03-08 05:43] LABS: Albumin 2.4 g/dL (3.4-5.0); Phosphorus 3.4 mg/dL (2.5-4.9); Potassium 4.6 mmol/L (3.5-5.1); Thyroid Stimulating Hormone 0.75 uIU/mL (0.36-3.74)
[2018-03-08] MEDS: INSULIN -REGULAR HUMAN 50 UNIT/0.5 ML ML SQ SCH ×4 (06:00→18:53)
[2018-03-08] MEDS ORDERED: NITROGLYCERIN 0.2 MG/HR (5 MG) PATCH TD SCH (09:00)
[2018-03-08] MEDS ORDERED: FUROSEMIDE 40 MG TABLET FT SCH (09:00)
[2018-03-08] MEDS: Pantoprazole (granules) 40 MG/BLIST PACKET FT SCH (09:27)
[2018-03-08] MEDS: levETIRAcetam 500 MG TAB FT SCH ×2 (09:28→20:55)
[2018-03-08] MEDS: CARVEDILOL 25 MG TAB FT SCH ×2 (09:28→20:56)
--- NOTE | 2018-03-08 16:47 | RAD REPORT ---
EXAM DESCRIPTION: [facility] Single View03/08/2018 4:10 pm CLINICAL HISTORY: Shortness of breath COMPARISON: March 06 FINDINGS: Mild bilateral pulmonary opacities are present. The heart is mildly enlarged. Central rhonda ous catheter remains in place IMPRESSION: Mild pulmonary edema is suspected
[2018-03-08] MEDS: COLLAGENASE 30 GM OINTMENT TOP SCH (17:06)
--- NOTE | 2018-03-08 19:22 | PN ---
Date of Progress Note: 03/08/2018 Subjective: The patient has no shortness of breath. No nausea. No vomiting. Tolerating his diet. Physical Examination: Vital Signs: When I saw the patient, blood pressure yesterday apparently down to 95, pulse of 67, af ebrile. Chest: Clear to auscultation. Heart: S1, S2 regular. Abdomen: Soft, nontender. Extremities: Bilateral amputee. Laboratory Data: WBC 10, H and H 10.2/30.8, platelets 177. Sodium 139, potassium 4.6, bicarb 34, BU N 110, creatinine of 5, calcium 8.6, phosphorus 3.4. Medications: Current medications the patient is on include albuterol, Epogen, carvedilol 25 b.i.d., clonidine 0.2, Keppra, Lasix 20 p.o., pantoprazole. Assessment And Plan: 1.Acute kidney injury on chronic kidney disease. Unfortunately, the patient did not succeed the wea cristobal from the dialysis. Creatinine continued to rise and the patient's BUN elevated. We are going t o go ahead and resume dialysis for the patient and we will follow up. The patient is going to be arr anged for dialysis tomorrow. 2.Hypertension, controlled. Currently, blood pressure on the lower side. I am going to go ahead an d discontinue nitroglycerin patch and we will follow up. 3.Anemia, stable. Continue to resume LUKASZ. 4.Chronic obstructive pulmonary disease. Continue current treatment. 5.Acidosis, stable. LUMA/ALISON Voice ID: [id number] Report ID: [id number]
--- NOTE | 2018-03-08 19:34 | PN ---
The patient still has pulmonary congestion; however, Nephrology Service wants to try IV Lasix. If th is does not remove enough fluid, he may undergo dialysis tomorrow. JOVITAK/MODL Voice ID: [id number] Report ID: [id number]
[2018-03-08] MEDS: ATORVASTATIN 40 MG TAB FT SCH (20:55)
[2018-03-09] MEDS: cloNIDine HCl 0.1 MG TAB FT SCH ×3 (00:42→16:23)
[2018-03-09] MEDS: IPRATROPIUM BROM 0.5MG/2.5ML NEB SCH ×4 (01:06→20:55)
[2018-03-09] MEDS: ALBUTEROL 2.5 MG/3 ML NEB SOL NEB SCH ×4 (01:07→20:55)
[2018-03-09] MEDS: NEPRO 1,000 ML BOT FT SCH (03:45)
[2018-03-09] MEDS: INSULIN -REGULAR HUMAN 50 UNIT/0.5 ML ML SQ SCH ×4 (05:43→18:00)
[2018-03-09 07:09] LABS: Albumin 2.4 g/dL (3.4-5.0); Phosphorus 3.4 mg/dL (2.5-4.9); Potassium 5.1 mmol/L (3.5-5.1)
[2018-03-09] MEDS: levETIRAcetam 500 MG TAB FT SCH ×2 (09:00→22:19)
[2018-03-09] MEDS: CARVEDILOL 25 MG TAB FT SCH ×2 (09:00→22:19)
[2018-03-09] MEDS: Pantoprazole (granules) 40 MG/BLIST PACKET FT SCH (09:00)
[2018-03-09] MEDS: FUROSEMIDE 40 MG/4 ML VIAL IV SCH (09:22)
[2018-03-09] MEDS: COLLAGENASE 30 GM OINTMENT TOP SCH (10:04)
--- NOTE | 2018-03-09 10:42 | RAD REPORT ---
EXAM DESCRIPTION: [facility] Single View03/09/2018 9:50 am CLINICAL HISTORY: Shortness of breath COMPARISON: March 08, 2018 FINDINGS: No significant change has occurred in the diffuse bilateral pulmonary opacities. The heart remains enlarged. The right hemidiaphragm remains elevated. Central venous catheter remains in place IMPRESSION: No significant change in bilateral pulmonary opacities probably representing pulmonary e meme
--- NOTE | 2018-03-09 11:10 | EKG ---
Test Date: 2018-03-09 Test Time: 09:19:54 Care Tech: MIL MEASUREMENT RESULTS: Intervals: Rate: 76 AR: 190 QRSD: 90 QT: 392 QTc: 441 [place]: P: 38 AR: 190 QRS: 43 T: -3 INTERPRETIVE STATEMENTS: Normal sinus rhythm Possible Left atrial enlargement Septal infarct, age undetermined Abnormal ECG Compared to ECG 03/06/2018 16:48:35 Myocardial infarct finding now present First degree AV block no longer present T-wave abnormality no longer present Possible ischemia no longer present Electronically Signed On 03-09-18 11:09:45 CDT by Weston Powell
[2018-03-09] MEDS: MANNITOL 25% 12.5 GM/50 ML VIAL IV PRN (11:59)
[2018-03-09] MEDS: ATORVASTATIN 40 MG TAB FT SCH (22:19)
[2018-03-10] MEDS: cloNIDine HCl 0.1 MG TAB FT SCH ×3 (00:39→16:19)
[2018-03-10] MEDS: INSULIN -REGULAR HUMAN 50 UNIT/0.5 ML ML SQ SCH ×3 (00:40→11:02)
--- NOTE | 2018-03-10 01:15 | PN ---
Patient underwent dialysis today. His hypoxia has improved, however, he still has bilateral wheezes. Chest x-ray showed similar findings as at admission. Patient may have additional aspiration. He w ill be reassessed tomorrow. DAVID/ALISON Voice ID: [id number] Report ID: [id number]
[2018-03-10] MEDS: IPRATROPIUM BROM 0.5MG/2.5ML NEB SCH ×4 (02:02→20:11)
[2018-03-10] MEDS: ALBUTEROL 2.5 MG/3 ML NEB SOL NEB SCH ×4 (02:02→20:11)
--- NOTE | 2018-03-10 03:09 | PN ---
Date of Progress Note: 03/09/2018 Chief Complaint: End-stage renal disease, fluid overload, intradialytic hypotension. The patient re ceived IV mannitol for blood pressure control. The patient developed fluid overload and peripheral e meme. Ultrafiltration was obtained although he was titrated down due to intradialytic hypotension. Review of Systems: Unobtainable. The patient has history of dementia. Physical Examination: Lungs: Clear to auscultation bilaterally. Heart: S1, S2. Extremities: No edema. Face: Facial edema present. Laboratory Data: Sodium 139, potassium 4.6, chloride is 110, bicarbonate 34, phosphorus 3.4, hemoglo bin is 10.2, WBC 10.0. Assessment: 1.End-stage renal disease. The patient will continue dialysis. 2.Fluid overload. The patient will have ultrafiltration. The patient will need to have ultrafiltra tion tomorrow. 3.Intradialytic hypotension. Consider midodrine. Monitor for blood pressure support. 4.Anemia in chronic kidney disease. Hemoglobin level is acceptable. Monitor and adjust LUKASZ. 5.Renal osteodystrophy. Monitor phosphorus level. Adjust binders as needed. EB/MODL Voice ID: [id number] Report ID: [id number]
[2018-03-10] MEDS: NEPRO 1,000 ML BOT FT SCH (03:38)
[2018-03-10 06:32] LABS: Albumin 2.4 g/dL (3.4-5.0); Potassium 4.4 mmol/L (3.5-5.1)
[2018-03-10] MEDS: CARVEDILOL 25 MG TAB FT SCH ×2 (08:50→22:12)
[2018-03-10] MEDS: FUROSEMIDE 40 MG/4 ML VIAL IV SCH (08:51)
[2018-03-10] MEDS: Pantoprazole (granules) 40 MG/BLIST PACKET FT SCH (08:51)
[2018-03-10] MEDS: levETIRAcetam 500 MG TAB FT SCH ×2 (08:51→22:12)
[2018-03-10] MEDS: COLLAGENASE 30 GM OINTMENT TOP SCH (08:52)
[2018-03-10] MEDS: MANNITOL 25% 12.5 GM/50 ML VIAL IV PRN (12:55)
--- NOTE | 2018-03-10 17:13 | RAD REPORT ---
EXAM DESCRIPTION: RAD - Chest Single View - 03/10/2018 5:04 pm CLINICAL HISTORY: hypoxia Chest pain. COMPARISON: Chest Single View dated 03/09/2018; Chest Single View dated 03/08/2018; Chest Single View dated 03/06/2018; Chest Single View dated 02/23/2018 FINDINGS: Portable technique limits examination quality. Interstitial pulmonary opacities bilaterally likely represent mild interstitial pulmonary edema. Righ t hemidiaphragm elevation versus subpulmonic pleural effusion again noted. Left-sided dialysis cathet er tip in the right atrium. The heart is mildly enlarged in size. No displaced fractures. IMPRESSION: Mild pulmonary edema/ volume overload pattern, similar to comparative study.
[2018-03-10] MEDS: ATORVASTATIN 40 MG TAB FT SCH (22:12)
--- NOTE | 2018-03-11 00:39 | PN ---
Date of Progress Note: 03/10/2018 Subjective: The patient did not succeed with the weaning from the dialysis yesterday, and today jayden rated the dialysis very well. Still has some shortness of breath. Physical Examination: Vital Signs: Blood pressure is 128/88, pulse of 88. Chest: Slight crackles on the base. Heart: S1, S2. Systolic murmur. Abdomen: Soft, nontender. Extremities: Bilateral amputee [id number]. Laboratory Data: Reviewed. GFR of 15, creatinine 3.9. No hyperkalemia Assessment And Plan: 1.End-stage renal disease. We will continue dialysis, PDS. 2.Secondary hyperparathyroidism, stable. 3.Anemia of chronic kidney disease. Continue LUKASZ. 4.Chronic obstructive pulmonary disease exacerbation. Continue current treatment. If the patient's requirement of oxygen is being better, the patient may be discharged to follow up wi th his outpatient dialysis. JENNIFER Voice ID: [id number] Report ID: [id number]
[2018-03-11] MEDS: cloNIDine HCl 0.1 MG TAB FT SCH ×3 (01:00→17:00)
[2018-03-11] MEDS: IPRATROPIUM BROM 0.5MG/2.5ML NEB SCH ×4 (01:10→20:17)
[2018-03-11] MEDS: ALBUTEROL 2.5 MG/3 ML NEB SOL NEB SCH ×4 (01:10→20:17)
[2018-03-11 05:45] LABS: Albumin 2.3 g/dL (3.4-5.0); Phosphorus 1.2 mg/dL (2.5-4.9); Potassium 3.9 mmol/L (3.5-5.1)
[2018-03-11] MEDS: INSULIN -REGULAR HUMAN 50 UNIT/0.5 ML ML SQ SCH ×5 (06:00→18:00)
[2018-03-11 06:52] VITALS: BMI 30.1
[2018-03-11] MEDS: FUROSEMIDE 40 MG/4 ML VIAL IV SCH (10:17)
[2018-03-11] MEDS: levETIRAcetam 500 MG TAB FT SCH ×2 (10:17→22:08)
[2018-03-11] MEDS: CARVEDILOL 25 MG TAB FT SCH ×2 (10:18→21:00)
[2018-03-11] MEDS: Pantoprazole (granules) 40 MG/BLIST PACKET FT SCH (10:19)
[2018-03-11] MEDS: NEPRO 1,000 ML BOT FT SCH (13:29)
[2018-03-11] MEDS: COLLAGENASE 30 GM OINTMENT TOP SCH (18:13)
[2018-03-11] MEDS: ATORVASTATIN 40 MG TAB FT SCH (22:08)
[2018-03-12] MEDS: INSULIN -REGULAR HUMAN 50 UNIT/0.5 ML ML SQ SCH ×5 (00:23→18:00)
--- NOTE | 2018-03-12 01:46 | PN ---
Date of Progress Note: 03/11/2018 Subjective: The patient still have shortness of breath, on oxygenation. The patient used to have O2 at home. Objective: Chest: Clear to auscultation. Heart: S1, S2. Regular. Systolic murmur. Abdomen: Soft, nontender. PEG tube. Extremities: Bilateral above-knee amputation. Vital Signs: Blood pressure of 118/52, pulse of 74. Laboratory Data: WBC 10, H and H 10.2/30.8, platelets 177. Sodium 141, potassium 3.9, bicarb 31, BU N 46, creatinine 2.6, calcium 8.8, phosphorus 1.2, albumin 2.3. Medications: Current medications the patient on is include, 1.Albuterol. 2.Epogen. 3.Atorvastatin. 4.Carvedilol 25 b.i.d. 5.Clonidine 0.2. 6.Lasix. 7.Breathing treatment. 8.Pantoprazole. Assessment And Plan: 1.End-stage renal disease, failed on weaning from dialysis. I am going to go ahead and arrange for the dialysis tomorrow. We will try to challenge the patient again. 2.Hypertension, currently blood pressure controlled. Occasionally low, could not allow us to challe nge on dialysis. For that reason, I am going to go ahead and decrease carvedilol to 6.25 and clonidi ne to 0.1 b.i.d. and we will monitor the patient. We will challenge again on dialysis tomorrow. 3.Anemia of chronic kidney disease. Continue LUKASZ. 4.Hyperkalemia, resolved. 5.Possible chronic obstructive pulmonary disease exacerbation. We will continue breathing treatment . We will follow up with the primary. The patient cleared from the renal standpoint for discharge planning. LUMA/ALISON Voice ID: [id number] Report ID: [id number]
[2018-03-12] MEDS: IPRATROPIUM BROM 0.5MG/2.5ML NEB SCH ×4 (02:00→20:00)
[2018-03-12] MEDS: ALBUTEROL 2.5 MG/3 ML NEB SOL NEB SCH ×4 (02:00→19:44)
[2018-03-12 04:42] LABS: Albumin 2.2 g/dL (3.4-5.0); Phosphorus 1.3 mg/dL (2.5-4.9); Potassium 3.9 mmol/L (3.5-5.1)
--- NOTE | 2018-03-12 06:46 | P.CNS ---
Date of Consult: 03/12/18 Came to consult regarding trach site. Very limited information available from chart & nurse regarding details. Patient with history of trach at unknown facility approximately 2 years ago. Unknown date of decanulation. Admitted for SOB but no intervention (intubation/vent or PAP tx) needed. Patient nonverbal and unable to provide information. Patient asleep, breathing quietly without retraction or increased work of breathing. Dressing removed. There is a depression with possible fistula versus sinus at the trach site. Scant crusting, no active drainage. Will plan to return around lunchtime with better light and some instruments for further assessment. Given complex medical history (including ESRD, COPD, limited mental function, etc), I would be leery to consider surgical revision unless there is a clear, strong benefit in doing so.
[2018-03-12] MEDS: FUROSEMIDE 40 MG/4 ML VIAL IV SCH (08:33)
[2018-03-12] MEDS: CARVEDILOL 25 MG TAB FT SCH ×2 (08:34→21:54)
[2018-03-12] MEDS: Pantoprazole (granules) 40 MG/BLIST PACKET FT SCH (08:36)
[2018-03-12] MEDS: COLLAGENASE 30 GM OINTMENT TOP SCH (08:37)
[2018-03-12] MEDS: levETIRAcetam 500 MG TAB FT SCH ×2 (08:37→21:49)
[2018-03-12] MEDS: cloNIDine HCl 0.1 MG TAB FT SCH ×2 (08:37→21:48)
[2018-03-12] MEDS: NEPRO 1,000 ML BOT FT SCH (13:46)
[2018-03-12] MEDS ORDERED: ALBUMIN HUMAN 25% 50 ML IV PRN (16:20)
[2018-03-12] MEDS ORDERED: MANNITOL 25% 12.5 GM/50 ML VIAL IV PRN (16:23)
--- NOTE | 2018-03-12 19:36 | PN ---
Date of Progress Note: 03/11/2018 I had a long discussion with the regarding prognosis as well as long-term care. The patient is doing fairly well, however, he still has episodes of gurgling, which probably is due to collection of postnasal drainage and possibly bronchial secretions. She wants reconsideration of opening the trac heotomy, so that suctioning can be done. I gave her several options regarding long-term care includi jonna giving only supportive care and even hospice care, however, she wants everything to be done at thi s point, so consultation with the ENT is done in that regard. DAVID/ALISON Voice ID: [id number] Report ID: [id number]
--- NOTE | 2018-03-12 19:36 | PN ---
The patient was seen in the dialysis place today. He is tolerating dialysis okay. His lungs are emerald rly clear except for occasional wheezes. He is afebrile. ENT consultation has not been completed ye t regarding required management for the tracheotomy revision. DAVID/ALISON Voice ID: [id number] Report ID: [id number]
[2018-03-12] MEDS: ATORVASTATIN 40 MG TAB FT SCH (21:49)
--- NOTE | 2018-03-13 00:08 | PN ---
Date of Progress Note: 03/12/2018 Chief Complaint: End-stage renal disease, fluid overload. History Of Present Illness: Today, the patient is scheduled to have dialysis with ultrafiltration. The patient has history of dementia. He cannot provide review of systems. Review of Systems: Unobtainable. Laboratory Data: Lungs: Few crackles at bases. Heart: S1, S2. Abdomen: Soft, benign. Extremities: No clubbing. Bilateral above-knee amputation. Laboratory Data: Hemoglobin level is 10.2, sodium 141, potassium 3.9, bicarbonate 31, BUN 46, creati nine 2.6, albumin 2.3. Impression And Plan: 1.End-stage renal disease. Continue dialysis 3 times per week. The patient will have ultrafiltrati on to treat fluid overload. Volemia status is improving. The patient is recovering from anasarca. 2.Hyperkalemia, resolved. 3.Anemia and chronic kidney disease. Continue LUKASZ. 4.The patient has hypertensive heart and kidney disease. Continue carvedilol and Lasix. SHAY/MODL Voice ID: [id number] Report ID: [id number]
[2018-03-13] MEDS ORDERED: IPRATROPIUM BROM 0.5MG/2.5ML ONE (01:38)
[2018-03-13] MEDS: IPRATROPIUM BROM 0.5MG/2.5ML NEB SCH ×3 (01:45→13:42)
[2018-03-13] MEDS: ALBUTEROL 2.5 MG/3 ML NEB SOL NEB SCH ×3 (01:45→13:42)
[2018-03-13] MEDS: INSULIN -REGULAR HUMAN 50 UNIT/0.5 ML ML SQ SCH ×4 (06:00→18:00)
[2018-03-13 08:53] VITALS: O2SAT 99
[2018-03-13] MEDS ORDERED: CARVEDILOL 6.25 MG TAB FT SCH (09:00)
[2018-03-13] MEDS: CARVEDILOL 25 MG TAB FT SCH (09:00)
[2018-03-13] MEDS: COLLAGENASE 30 GM OINTMENT TOP SCH (09:00)
[2018-03-13] MEDS: cloNIDine HCl 0.1 MG TAB FT SCH (09:12)
[2018-03-13] MEDS: levETIRAcetam 500 MG TAB FT SCH (09:12)
[2018-03-13] MEDS: Pantoprazole (granules) 40 MG/BLIST PACKET FT SCH (09:12)
[2018-03-13] MEDS: FUROSEMIDE 40 MG/4 ML VIAL IV SCH (09:15)
[2018-03-13] MEDS ORDERED: SILVER NITRATE 1 APPL TOP ONE (13:48)
[2018-03-13] MEDS: NEPRO 1,000 ML BOT FT SCH (14:00)
[2018-03-13] MEDS ORDERED: SILVER NITRATE 1 APPL TOP SCH (14:00)
--- NOTE | 2018-03-13 15:33 | P.PN ---
Date of Service: 03/13/18 Spoke with patient's yesterday regarding details of trach. Patient underwent trach at [facility] follow accident with coe about 2 years ago. Name of surgeon is unknown. Patient was at [facility] and was downsized and capped for a period of time and decanulated about 2 months ago. No specific symptoms of respiratory distress are noted. I re-examined the patient's neck today. The neck is probed with Qtip and with lacrimal probe - I do not feel there is currently a tracheocutaneous fistula but there is a bit of a sinus tract with some granulation. The granulation tissue is treated with silver nitrate to help decrease moisture and stimulate further healing. I spoke with the on the phone and she again asked about replacing the trach. I spoke with Dr. Marin and the patient and do not recommend replacement of the trach since he's ventilating and oxygenating well on his own. If he decompensates and requires intubation, I would consider early (post intubation day 3-5) over late (post intubation day 10-14) tracheotomy given his overall condition and if that occurs, I would consider the tracheotomy to be permanent for this patient. Dr. Marin and I spoke about the option of [facility] care, which is a very good option given his overall condition.
[2018-03-13 17:29] VITALS: BP 116/63; TEMP 97
--- NOTE | 2018-03-14 03:18 | PN ---
Date of Progress Note: 03/13/2018 Subjective: The patient is the same. No event. His requirement of oxygenation is better. Physical Examination: Vital Signs: Blood pressure 116/63, pulse of 81. Chest: Clear to auscultation. Heart: S1, S2. Regular. Abdomen: Soft, nontender. Extremities: Bilateral above-knee amputation. Laboratory Data: H and H 10.2/30.8. Sodium 141, potassium 3.9, bicarb 31, BUN 68, creatinine 3.5, p hosphorus 1.3, calcium 8.6. Assessment And Plan: 1.End-stage renal disease. Continue dialysis. 2.Hypertension, controlled, optimal. Continue current medication. 3.Secondary hyperparathyroidism. Discontinue oral binder. 4.Anemia. Continue Epogen. Current Medications: Atorvastatin, alprazolam, Epogen, Lasix 40 daily, breathing treatment, pantopra zole. Case is discussed with the staff and agreed on the plan. JENNIFER Voice ID: [id number] Report ID: [id number]
--- NOTE | 2018-04-17 13:41 | DS ---
Date of Discharge: 03/13/2018 Final Diagnoses: 1.Hypoxemia. 2.Volume overload. 3.Acute on chronic end-stage renal disease, on dialysis. 4.Old cerebrovascular accident. 5.Functional quadriplegia. 6.Bilateral leg amputation. 7.Feeding tube status. 8.Hyperlipidemia. 9.Type 2 diabetes. Hospital Course: This patient was brought to the emergency room with hypoxia and wheezing. The viviane ent was found to have evidence of volume overload. After admission to the hospital, Nephrology Rodo baesley was consulted. The patient underwent dialysis. The patient had multiple medical problems. Basic ally, he was in bedridden status. Multiple consultations were done with the family regarding his car e. The patient showed improvement of hypoxia. However, he had noisy breathing. ENT consultation wa s done to see if there is any issue with the old tracheotomy site. He was examined and it was decide d that there was no need to reactivate old tracheotomy as the patient had no active issues related to that. After this patient was stable and was discharged home to have follow up in the dialysis [facility] for his required dialysis. Laboratory Data: Laboratory is extensive, please refer to the chart. RRK/MODL Voice ID: [id number] Report ID: [id number]
== END 2018-03-13 20:00 | disposition home health service (06) | DRG 640 ==
LOC: ER 16:05 → ERHOLD 20:04 → 4TH 21:35 → OBSVTOIN 03-09 08:20 → 4TH 03-09 19:17
PROVIDERS: ADMIT Internal Medicine; ATTEND Internal Medicine
PROC: 5A1D70Z Performance of Urinary Filtration, Intermittent, Less than 6 Hours Per Day (ICD-10-PCS; principal; 2018-03-09)
PROC: 0H5 Skin and Breast, Destruction (ICD-10-PCS; 2018-03-13)
DX: E87.70 Fluid overload, unspecified (principal); N18.6 End stage renal disease; N17.9 Acute kidney failure, unspecified; J95.09 Other tracheostomy complication; J44.1 Chronic obstructive pulmonary disease with (acute) exacerbation; I12.0 Hypertensive chronic kidney disease with stage 5 chronic kidney disease or end stage renal disease; N25.81 Secondary hyperparathyroidism of renal origin; E87.2 Acidosis; Z99.2 Dependence on renal dialysis; D63.1 Anemia in chronic kidney disease; Z89.612 Acquired absence of left leg above knee; Z89.611 Acquired absence of right leg above knee; E87.5 Hyperkalemia; F03.90 Unspecified dementia, unspecified severity, without behavioral disturbance, psychotic disturbance, mood disturbance, and anxiety; I95.3 Hypotension of hemodialysis; N25.0 Renal osteodystrophy; R09.02 Hypoxemia; Z86.73 Personal history of transient ischemic attack (TIA), and cerebral infarction without residual deficits; Z93.1 Gastrostomy status; E78.5 Hyperlipidemia, unspecified; E11.22 Type 2 diabetes mellitus with diabetic chronic kidney disease; E11.40 Type 2 diabetes mellitus with diabetic neuropathy, unspecified; E11.21 Type 2 diabetes mellitus with diabetic nephropathy; Z74.01 Bed confinement status
CPT/HCPCS: 36415; 71045; 80048; 80069; 80076; 82550; 82553; 82962; 83605; 83735; 83880; 84443; 84484; 85025; 85610; 85730; 87040; 87205; 90935; 93005; 94640; 94760; 96374; 99285; G0378; J1940; J2150; J3590; P9047; Q4081

== ENCOUNTER 2018-03-17 13:17 | Observation (INO) | payer BC, OTHER ==
[2018-03-17] MEDS ORDERED: LEVALBUTEROL 1.25 MG/3 ML NEB ONE (14:14)
[2018-03-17 14:16] LABS: Absolute Lymphocytes (CBC) 1.5 K/uL (0.7-4.9); Absolute Monocytes 0.8 K/uL (0.1-1.3); Absolute Neutrophil 7.2 K/uL (1.8-8.0); Basophils % 0.5 % (0-1.3); Lymphocytes % 15.4 % (15.3-44.8); MCH 31.5 pg (27.0-35.0); MCV 96.9 fL (80-100); MPV 10.2 fL (7.6-11.3); RBC Red Blood Cell Count 3.09 M/uL (4.33-5.43)
--- NOTE | 2018-03-17 14:36 | RAD REPORT ---
EXAM DESCRIPTION: RAD - Chest Single View - 03/17/2018 2:18 pm CLINICAL HISTORY: Cough, dialysis patient, abnormal blood pressure COMPARISON: March 10 TECHNIQUE: AP portable chest image was obtained 1408 hours . FINDINGS: Lung volumes are low similar to prior study. Vasculature and lung markings are prominent b ut slightly less pronounced than seen March 10. Heart size is upper normal but stable. Right hemidiaph ragm elevation is again noted. A new or progressive lung parenchymal process is not identified. No pneumothorax or enlarging pleural effusion. Lung base assessment is limited. Left-sided hemodialy sis catheter is in place similar to comparison. There is radiopaque tubing that overlies the midline upper chest. This is superimposed on the dialysis catheter. This is believed to be an external tubing . No gross bony abnormality seen. No acute aortic findings suspected. IMPRESSION: Mild CHF/ volume overload pattern is present, less prominent than seen March 10.
[2018-03-17] MEDS ORDERED: FUROSEMIDE 40 MG/4 ML VIAL ONE (14:53)
[2018-03-17 14:58] LABS: Potassium 4.4 mmol/L (3.5-5.1)
[2018-03-17 17:21] LABS: Urine Bacteria 20-50 /HPF (NONE SEEN); Urine Culture Reflex Order NOT NEEDED; Urine Mucus 2+ /HPF (NONE SEEN)
[2018-03-17 17:21] LABS: Urine Blood 3+ (NEG); Urine Glucose NEGATIVE (NEG); Urine Protein 3+ (NEG); Urine Specific Gravity 1.015 (1.005-1.030)
[2018-03-17] MEDS ORDERED: CEFTRIAXONE/SWI 1gm 1 GM/10 ML SYR ONE (17:37)
--- NOTE | 2018-03-17 17:41 | ER ---
Nurse's Notes [facility] Name: Kush Robles Age: 72 yrs Sex: Male : 1945 Arrival Date: 03/17/2018 Time: 13:23 Bed 6 Private MD: Diagnosis: Urinary tract infection, site not specified;End stage renal disease;Pulmonary edema Presentation: 03/17 13:15 Presenting complaint: EMS states: "pt from home, home dialysis nurse was there and took tw2 his blood pressure and it was 102/64, she called his dialysis dr and the dialysis dr told him to go to ER to get checked out, we got 146/86, he does sound wet in his lungs". Transition of care: patient was not received from another setting of care. Onset of symptoms was March 17, 2018. Risk Assessment: Do you want to hurt yourself or someone else? Patient reports no desire to harm self or others. Initial Sepsis Screen: Does the patient meet any 2 criteria? No. Patient's initial sepsis screen is negative. Does the patient have a suspected source of infection? No. Patient's initial sepsis screen is negative. Care prior to arrival: None. 13:15 Method Of Arrival: EMS: [facility] [place] tw2 13:15 Acuity: JUNE 3 tw2 Historical: - Allergies: 14:22 No Known Allergies; tw2 - Home Meds: 14:22 omeprazole 20 mg Oral cpDR once daily [Active]; lisinopril 5 mg Oral tab 1 tab twice a tw2 day [Active]; albuterol sulfate 2.5 mg /3 mL (0.083 %) Inhl neb [Active]; atorvastatin 40 mg Oral tab 1 tab once daily [Active]; guaifenesin-codeine 100-10 mg/5ml 2 2 teaspoons twice a day [Active]; levetiracetam 500 mg Oral tab 2 times per day [Active]; - PMHx: 14:22 CVA; Diabetes - IDDM; Dialysis; ESRD; h/o coe to extensive area, skin grafts; High tw2 Cholesterol; Hypertension; PEG tube; trach; 18:31 B/L BKA; tw2 - Immunization history:: Adult Immunizations up to date. - Social history:: Smoking status: Patient/guardian denies using tobacco. - Family history:: not pertinent. - Ebola Screening: : Patient denies travel to an Ebola-affected area in the 21 days before illness onset. - Hospitalizations: : No recent hospitalization is reported. Screenin:22 Abuse screen: Denies threats or abuse. Nutritional screening: No deficits noted. tw2 Tuberculosis screening: No symptoms or risk factors identified. Fall Risk None identified. Assessment: 13:15 General: Appears in no apparent distress. Behavior is calm. Pain: Denies pain. Neuro: tw2 Level of Consciousness is obeys commands, Oriented to person. Neuro: Oriented to this is pts baseline per sister in law at bedside. Cardiovascular: Heart tones S1 S2 Patient's skin is warm and dry. Dialysis shunt: in the left clavicle and anterior aspect of left upper chest, dressing clean, dry, and intact. Respiratory: Airway is patent Respiratory effort is even, unlabored, Respiratory pattern is regular, symmetrical, Breath sounds with crackles bilaterally. GI: PEG tube in place, Site clean. Bowel sounds present X 4 quads. : No signs and/or symptoms were reported regarding the genitourinary system. EENT: No signs and/or symptoms were reported regarding the EENT system. Derm: Skin temperature is warm. Musculoskeletal: Amputation of b/l BKA. 13:55 Reassessment: c/g at bedside reports odor to back wound, Dr. Rivera at bedside to tw2 observe , noted malodorous large sacral decubitus, with thickened, scaly skin noted, approx 10 inches in diameter. 14:18 Reassessment: Patient appears in no apparent distress at this time. Patient and/or tw2 family updated on plan of care and expected duration. Pain level reassessed. 15:09 Reassessment: Patient appears in no apparent distress at this time. Patient and/or tw2 family updated on plan of care and expected duration. Pain level reassessed. 16:03 Reassessment: Patient appears in no apparent distress at this time. Patient and/or tw2 family updated on plan of care and expected duration. Pain level reassessed. 17:12 Reassessment: Patient appears in no apparent distress at this time. Patient and/or tw2 family updated on plan of care and expected duration. Pain level reassessed. 17:45 Reassessment: pt started to cough, then vomited light brown, mucous emesis approx 15 tw2 ml, provider notified, oral care provided and mouth suctions. 18:09 Reassessment: Patient appears in no apparent distress at this time. Patient and/or tw2 family updated on plan of care and expected duration. Pain level reassessed. Vital Signs: 13:25 BP 126 / 73; Pulse 80; Resp 19; Temp 98.9(O); Pulse Ox 95% on 2 lpm NC; tw2 13:45 BP 129 / 79; Pulse 79; Resp 19; Pulse Ox 98% on 2 lpm NC; tw2 14:16 BP 136 / 75; Pulse 78; Resp 20; Pulse Ox 100% on Nebulizer Mask; tw2 15:08 BP 139 / 77; Pulse 77; Resp 23; Pulse Ox 98% on 2 lpm NC; tw2 16:02 BP 123 / 91; Pulse 75; Resp 22; Pulse Ox 96% on 2 lpm NC; tw2 17:11 BP 134 / 76; Pulse 74; Resp 22; Pulse Ox 98% on 2 lpm NC; sv 18:09 BP 143 / 77; Pulse 78; Resp 22; Pulse Ox 97% on 2 lpm NC; tw2 ED Course: 13:15 Bed in low position. Side rails up X2. color television console monitor on. Pulse ox on. NIBP on. tw2 13:23 Patient arrived in ED. tw2 13:24 Jesus Rivera MD is Attending Physician. rn 13:25 Triage completed. tw2 13:26 Haily Ugalde, RN is Primary Nurse. tw2 13:27 Arm band placed on. tw2 13:55 Inserted saline lock: 24 gauge in right forearm, using aseptic technique. ,using tw2 aseptic technique. per MYRTLE Hammond Blood collected. 14:10 Blood Culture Adult (2) Sent. tw2 14:18 XRAY Chest (1 view) In Process Unspecified. EDMS 14:23 EKG done, by solids control technician. reviewed by Jesus Rivera MD. at1 14:47 Troponin I Sent. tw2 15:51 Add On-Lab Sent. sv 16:35 Straight cath inserted, using sterile technique, Specimen obtained. 8F was inserted by sv Dr Rivera with no urine output, then Dr Rivera inserted a 10F and pt had 50 mls output, cloudy urine. 17:09 One-on-one care X 30 minutes. sv 17:40 Dimitri Marin MD is Hospitalizing Provider. rn 18:28 No provider procedures requiring assistance completed. Patient admitted, IV remains in sv place. intact. Administered Medications: 14:10 Drug: Xopenex 1.25 mg Route: Inhalation; tw2 14:50 Drug: Lasix 40 mg Route: IVP; Site: right forearm; tw2 16:10 Follow up: Response: No adverse reaction sv 17:35 Drug: Rocephin - (cefTRIAXone) 1 grams Route: IVPB; Infused Over: 5 mins; Site: right tw2 antecubital; 17:40 Follow up: IV Status: Completed infusion tw2 18:25 Follow up: Response: No adverse reaction tw2 Point of Care Testing: Blood Glucose: 17:11 Blood Glucose: 129 mg/dL; sv Ranges: Outcome: 17:41 Decision to Hospitalize by Provider. rn 18:29 Admitted to Tele accompanied by tech, family with patient, via stretcher, room 207, sv with oxygen, with chart, Report called to Lesly RN 18:29 Condition: stable 18:29 Instructed on the need for admit. 18:35 Patient left the ED. sv Signatures: Dispatcher [employer] EDNereyda Laboy RN RN Jesus Sandoval MD MD rn gonzales, Amanda, production utility worker EKG Tat1 Haily Ugalde RN RN tw2 Corrections: (The following items were deleted from the chart) 17:12 16:00 Reassessment: c/g at bedside reports odor to back wound, Dr. Rivera at bedside, tw2 malodorous scaly skin noted to lower back and sacrum area tw2 18:32 13:15 Cardiovascular: Heart tones S1 S2 Patient's skin is warm and dry. tw2 tw2
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
--- NOTE | 2018-03-17 17:57 | EKG ---
Test Date: 2018-03-17 Test Time: 14:09:39 Sexton Helper: PRICE MEASUREMENT RESULTS: Intervals: Rate: 79 IA: 200 QRSD: 86 QT: 358 QTc: 410 [place]: P: 43 IA: 200 QRS: 45 T: 20 INTERPRETIVE STATEMENTS: Normal sinus rhythm Possible Left atrial enlargement Septal infarct, age undetermined Abnormal ECG Compared to ECG 03/09/2018 09:19:54 No significant changes Electronically Signed On 03-17-18 17:56:37 CDT by Weston Powell
[2018-03-17] MEDS ORDERED: ONDANSETRON 4 MG/2 ML VIAL IV PRN (19:40)
[2018-03-17] MEDS ORDERED: GUAIFENESIN/CODEINE 5ML UCUP FT PRN (21:37)
[2018-03-17] MEDS ORDERED: D50W 25 GM/50 ML SYRINGE IV PRN (21:37)
[2018-03-17] MEDS ORDERED: GLUCAGON 1 MG/VIAL IM PRN (21:37)
[2018-03-17] MEDS ORDERED: ALPRAZOLAM 0.25 MG TABLET FT PRN (21:37)
[2018-03-17] MEDS ORDERED: ACETAMINOPHEN 325 MG TABLET FT PRN (21:37)
[2018-03-17] MEDS: NEPRO 1,000 ML BOT FT SCH (22:36)
[2018-03-18] MEDS: ALBUTEROL 2.5 MG/3 ML NEB SOL NEB SCH ×7 (00:18→23:47)
[2018-03-18] MEDS: IPRATROPIUM BROM 0.5MG/2.5ML NEB SCH ×7 (00:18→23:47)
[2018-03-18 04:19] LABS: Absolute Monocytes 0.9 K/uL (0.1-1.3); Absolute Neutrophil 10.6 K/uL (1.8-8.0); Basophils % 0.5 % (0-1.3); Eosinophils % 2.2 % (0-4.4); Hematocrit 28.2 % (39.6-49.0); Lymphocytes % 7.5 % (15.3-44.8); MCH 31.9 pg (27.0-35.0); MCV 96.2 fL (80-100); MPV 9.5 fL (7.6-11.3); Monocytes % 7.4 % (3.3-12.3); RBC Red Blood Cell Count 2.93 M/uL (4.33-5.43)
[2018-03-18 04:32] LABS: Potassium 4.8 mmol/L (3.5-5.1)
[2018-03-18] MEDS: INSULIN -REGULAR HUMAN 50 UNIT/0.5 ML ML SQ SCH ×4 (06:00→18:00)
[2018-03-18] MEDS ORDERED: PNEUMOCOCCAL VACCINE 0.5 ML IMVAC ONE (08:00)
[2018-03-18] MEDS ORDERED: CEFTRIAXONE 1 GM/NS 50 ML 1 GM/50 ML BAG IV SCH (09:00)
[2018-03-18] MEDS: cloNIDine HCl 0.1 MG TAB FT SCH ×2 (09:23→22:03)
[2018-03-18] MEDS: levETIRAcetam 500 MG TAB FT SCH ×2 (09:23→22:03)
[2018-03-18] MEDS: CARVEDILOL 25 MG TAB FT SCH ×2 (09:24→22:02)
[2018-03-18] MEDS: FUROSEMIDE 40 MG TABLET FT SCH (09:24)
[2018-03-18] MEDS: CEFTRIAXONE/SWI 1gm 1 GM/10 ML SYR IV SCH (09:24)
[2018-03-18] MEDS ORDERED: MANNITOL 25% 12.5 GM/50 ML VIAL IV PRN (12:39)
--- NOTE | 2018-03-18 18:55 | HP ---
Date of Admission: 03/17/2018 Chief Complaint: Low blood pressure. History Of Present Illness: A 72-year-old male, who is on hemodialysis, was found to have low blood pressure, when he was brought for dialysis. The patient was sent to ER, evaluation was done. The pa nancy had elevated procalcitonin with normal white count. The patient is admitted for observation. There is no history of vomiting. No history of fever, chills, rigors. Past Medical History: Extensive includes history of coe, bilateral leg amputation, hypertension, d iabetes, end-stage renal disease, on dialysis, history of tracheotomy, history of feeding tube insert ion and daily feedings through feeding tube. The patient cannot communicate and his list of medicine s is listed in the medication list. Physical Examination: General: Revealed noncommunicative 72-year-old male, bedridden with a bedsore on the back and bilate ral leg amputations and a functioning feeding tube. HEENT: Negative. Neck: Supple. JVD negative. Chest: Few scattered wheezes, otherwise negative, tracheotomy nonfunctional. Extremities: Amputation noted, otherwise negative. There is a large area of decubitus ulcer. There is no active oozing. There is no bleeding. Laboratory Data: White count at admission 10,000. BUN 95, creatinine 4.3. Urine blood 3+, wbc's 20 -50, bacteria 20-50. Assessment: 1.Hypotension. 2.End-stage renal disease, on dialysis. 3.Probable urinary tract infection. 4.Bilateral leg amputation. 5.Type 2 diabetes. 6.Gastrostomy feeding status. 7.Decubitus ulcer, back. Plan: The patient received IV antibiotic and dialysis. The patient has no fever today. I discussed the case with Dr. Zhu. We will watch him for another night and see whether he would develop an y other signs of infection or sepsis. The patient currently is stable with a blood pressure of 96/57 . Blood pressure will be monitored. The patient very likely is not septic. RRK/MODL Voice ID: [id number]
[2018-03-18] MEDS: ATORVASTATIN 40 MG TAB FT SCH (22:03)
[2018-03-18] MEDS: NEPRO 1,000 ML BOT FT SCH (22:46)
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
[2018-03-19] MEDS: ALBUTEROL 2.5 MG/3 ML NEB SOL NEB SCH ×5 (03:44→19:36)
[2018-03-19] MEDS: IPRATROPIUM BROM 0.5MG/2.5ML NEB SCH ×5 (03:44→19:36)
[2018-03-19] MEDS: INSULIN -REGULAR HUMAN 50 UNIT/0.5 ML ML SQ SCH ×4 (05:55→18:00)
[2018-03-19] MEDS: cloNIDine HCl 0.1 MG TAB FT SCH (09:00)
[2018-03-19] MEDS ORDERED: CARVEDILOL 25 MG TAB FT SCH (09:00)
[2018-03-19] MEDS: CEFTRIAXONE/SWI 1gm 1 GM/10 ML SYR IV SCH (09:53)
[2018-03-19] MEDS: levETIRAcetam 500 MG TAB FT SCH (09:54)
[2018-03-19] MEDS: CARVEDILOL 3.125 MG TAB FT SCH (09:54)
[2018-03-19] MEDS: FUROSEMIDE 40 MG TABLET FT SCH (09:55)
--- NOTE | 2018-03-19 21:48 | PN ---
Date of Progress Note: 03/19/2018 Subjective: The patient doing better. Blood pressure stabilized. Yesterday we had to decrease his clonidine Objective: Vital Signs: When I saw the patient blood pressure 133/60, pulse of 79, afebrile. Chest: Crackles bilateral. Heart: S1, S2. Regular. Systolic murmur. Abdomen: Soft, nontender. PEG tube. Extremities: Bilateral above knee amputation. Laboratory Data: WBC 12.9, H and H 9.4/28. Sodium 134, potassium 4.4, bicarb 33, BUN 95, creatinine 4.3, and calcium 8.2. BNP 9027. Current Medications: The patient on include; 1.Breathing treatment. 2.Atorvastatin. 3.Carvedilol 3.125 b.i.d. 4.Clonidine p.r.n. 5.Lasix 40. 6.Guanfacine. 7.Keppra. 8.Zofran. 9.Ceftriaxone. Assessment And Plan: 1.End-stage renal disease. Still on the wet side. Yesterday we could not remove more than 400. We going to go ahead and arrange for another session of dialysis today. 2.We will challenge the patient. The patient is going to be dialyzed on low potassium bath with sod ium. 3.Hypertension. We will hold clonidine. Continue low-dose carvedilol and we will monitor the patie nt. We will monitor the blood pressure after dialysis. 4.Questionable pneumonia. Continue current antibiotic. 5.Respiratory failure secondary to over volume. Continue current treatment. We will challenge the patient today. LUMA/ALISON Voice ID: [id number] Report ID: [id number]
[2018-03-19] MEDS ORDERED: ALBUMIN HUMAN 25% 50 ML IV SCH (22:00)
--- NOTE | 2018-03-19 22:25 | PN ---
History: The patient is afebrile. His lungs have scattered wheezes, otherwise negative. Heart regu lar. The patient, when I made rounds, was about to have dialysis. The patient is on Rocephin. I caceres d a long discussion with the regarding his care, his bedsore, as well as a long-term prognosis. The patient had urine culture, however, sensitivity has not been reported yet. Once that reported, the patient will be given antibiotic by feeding tube. Nephrology Service already cleared him dischar ge. I am not comfortable in suggesting that current management at home has been adequate as his beds ore has gotten worse; however, wants to continue to provide care at home. DAVID/ALISON Voice ID: [id number] Report ID: [id number]
[2018-03-20] MEDS: IPRATROPIUM BROM 0.5MG/2.5ML NEB SCH ×5 (00:06→19:45)
[2018-03-20] MEDS: ALBUTEROL 2.5 MG/3 ML NEB SOL NEB SCH ×5 (00:06→19:45)
[2018-03-20] MEDS: levETIRAcetam 500 MG TAB FT SCH ×3 (00:23→20:08)
[2018-03-20] MEDS: CARVEDILOL 3.125 MG TAB FT SCH ×3 (00:23→20:08)
[2018-03-20] MEDS: cloNIDine HCl 0.1 MG TAB FT SCH ×3 (00:24→20:09)
[2018-03-20] MEDS: ATORVASTATIN 40 MG TAB FT SCH ×2 (00:25→20:07)
[2018-03-20] MEDS: NEPRO 1,000 ML BOT FT SCH (00:35)
[2018-03-20] MEDS: INSULIN -REGULAR HUMAN 50 UNIT/0.5 ML ML SQ SCH ×4 (06:00→18:00)
[2018-03-20 09:20] VITALS: BMI 28.1
[2018-03-20] MEDS: FUROSEMIDE 40 MG TABLET FT SCH (10:33)
[2018-03-20] MEDS: CEFTRIAXONE/SWI 1gm 1 GM/10 ML SYR IV SCH (10:34)
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
[2018-03-20 16:11] LABS: Arterial Blood Carboxyhemoglob 1.6 % (0-1.5); Blood O2 Saturation 85.8 % (92-98.5)
[2018-03-20] MEDS ORDERED: FLUCONAZOLE 100 MG TAB PO SCH (17:00)
--- NOTE | 2018-03-20 17:46 | PN ---
Subjective: The patient is afebrile. The patient had dialysis done yesterday. His blood pressure i s 144/67. His O2 saturation is 97. However, family is concerned about the gurgling sounds in the th roat. I explained to the family that the patient very likely is going to need suctioning p.r.n. as h e is unable to clear his secretions. The patient's family however wants an opinion from the Pulmonar y consultation. This has been done. DAVID/ALISON Voice ID: [id number] Report ID: [id number]
[2018-03-20 20:01] VITALS: O2SAT 99
[2018-03-20 20:09] VITALS: BP 151/74
[2018-03-20 20:10] VITALS: TEMP 97.3
[2018-03-20] MEDS ORDERED: FAMOTIDINE 20 MG TAB PO SCH (21:00)
--- NOTE | 2018-03-20 23:58 | PN ---
Date of Progress Note: 03/20/2018 Chief Complaint/history Of Present Illness: End-stage renal disease, on dialysis. The patient recei alex dialysis yesterday. The patient had fluid overload. BNP was up to 9027. He was short of breath , had some respiratory distress. Pulmonary consultation was obtained because of cough. The patient had respiratory failure with hypoxemia due to fluid overload. Received ultrafiltration yesterday. E meme has improved. The patient is improving today, although the patient developed nonproductive coug h. Workup is pending for cough. Review of Systems: Unobtainable. Past Medical History: The patient has history of dementia. Physical Examination: Lungs: Few crackles at bases. Heart: S1, S2. Abdomen: Soft, benign. Extremities: Bilateral above-knee amputation. Impression And Plan: 1.End-stage renal disease. 2.Dialysis tomorrow. 3.Hypertension. Clonidine on hold. Continue low dose of carvedilol. 4.Questionable pneumonia. Continue antibiotics. 5.Fluid overload. Monitor daily weight. Adjust ultrafiltration with dialysis. 6.Dialysis tomorrow. 7.Anemia in chronic kidney disease. Hemoglobin is 9.4, stable. Continue to monitor and adjust LUKASZ. EB/MODL Voice ID: [id number] Report ID: [id number]
--- NOTE | 2018-04-17 15:02 | DS ---
Date of Discharge: 03/20/2018 Final Diagnoses: 1.Hypotension. 2.End-stage renal disease, on dialysis. 3.Urinary tract infection. 4.Functional quadriplegia status with bilateral leg amputation, bedridden status. 5.Type 2 diabetes. 6.Gastrostomy feeding tube status. 7.Decubitus ulcer, back. Hospital Course: This patient was brought to the emergency room because of low blood pressure. He a lso had elevated procalcitonin. However, his white count was normal. The patient after admission to the hospital received IV antibiotic pending his followup labs. He was restarted on dialysis. The p atient was also seen by Dr. Velázquez, Pulmonary, to see whether additional measures would help in pre venting aspiration of respiratory secretions. Few things were suggested such as BiPAP and using Pepc id, etc. After this was done and after consultation with the family, the patient was discharged home to have outpatient followup and required testing. Laboratory Data: Please refer to the chart. DAVID/ALISON Voice ID: [id number] Report ID: [id number]
== END 2018-03-20 22:05 | disposition home health service (06) ==
LOC: ER 13:17 → ERHOLD 17:42 → 2ND 18:28 → 4TH 03-20 15:09
PROVIDERS: ADMIT Internal Medicine; ATTEND Internal Medicine
PROC: 5A1D70Z Performance of Urinary Filtration, Intermittent, Less than 6 Hours Per Day (ICD-10-PCS; principal; 2018-03-18)
PROC: 5A1D70Z Performance of Urinary Filtration, Intermittent, Less than 6 Hours Per Day (ICD-10-PCS; 2018-03-19)
DX: I95.9 Hypotension, unspecified (principal); I12.0 Hypertensive chronic kidney disease with stage 5 chronic kidney disease or end stage renal disease; E11.22 Type 2 diabetes mellitus with diabetic chronic kidney disease; N18.6 End stage renal disease; L89.109 Pressure ulcer of unspecified part of back, unspecified stage; E11.622 Type 2 diabetes mellitus with other skin ulcer; E87.5 Hyperkalemia; N39.0 Urinary tract infection, site not specified; Z93.1 Gastrostomy status; Z89.611 Acquired absence of right leg above knee; Z89.612 Acquired absence of left leg above knee; Z99.2 Dependence on renal dialysis; Z86.73 Personal history of transient ischemic attack (TIA), and cerebral infarction without residual deficits; Z74.01 Bed confinement status
CPT/HCPCS: 36415; 51702; 71045; 80048; 81003; 81015; 82805; 82962; 83880; 84145; 84484; 85025; 87040; 87086; 87088; 90935; 93005; 94640; 94760; 99285; G0257; G0378; J0696; J2150; P9047

== ENCOUNTER 2018-03-27 08:59 | Inpatient (IN) | payer BC, OTHER ==
[2018-03-27] MEDS ORDERED: ALBUTEROL 2.5 MG/3 ML NEB SOL ONE (09:43)
[2018-03-27] MEDS ORDERED: IPRATROPIUM BROM 0.5MG/2.5ML ONE (09:43)
[2018-03-27] MEDS ORDERED: FUROSEMIDE 40 MG/4 ML VIAL ONE (09:44)
[2018-03-27 09:54] LABS: Arterial Blood Carboxyhemoglob 1.1 % (0-1.5); Blood Gas Oxyhemoglobin 90.9 % (94-97); Blood O2 Saturation 92.9 % (92-98.5)
[2018-03-27 10:10] LABS: Protime INR 1.23
[2018-03-27 10:27] LABS: Albumin 2.6 g/dL (3.4-5.0); Bilirubin Direct 0.1 mg/dL (0-0.2); Bilirubin Total 0.2 mg/dL (0.2-1.0); Potassium 3.9 mmol/L (3.5-5.1); Protein, Total 8.9 g/dL (6.4-8.2)
--- NOTE | 2018-03-27 10:43 | RAD REPORT ---
EXAM DESCRIPTION: RAD - Chest Single View - 03/27/2018 10:31 am CLINICAL HISTORY: Abdominal pain, shortness of breath, pulmonary edema, dyspnea COMPARISON: March 17 TECHNIQUE: AP portable chest image was obtained 1018 hours . FINDINGS: Right hemidiaphragm elevation is again noted. Blunting of the right costophrenic angle is seen. Respiratory motion limits the examination. Perihilar vasculature and lung markings are prominen t compared to the prior study. Mild cardiomegaly is present and stable. Trachea is midline. Dialysis catheter remains in place. No pneumothorax. Hazy right upper lung field opacification is seen. No zahraa ss bony abnormality seen. No acute aortic findings suspected. IMPRESSION: CHF/volume overload slightly worse than seen March 17.
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
[2018-03-27] MEDS ORDERED: CLINDAMYCIN 600MG/D5W 600 MG/50 ML BAG IV ONE (11:05)
[2018-03-27] MEDS ORDERED: CEFTRIAXONE/SWI 1gm 1 GM/10 ML SYR ONE (11:06)
[2018-03-27 11:22] LABS: Absolute Lymphocytes (CBC) 0.6 K/uL (0.7-4.9); Absolute Monocytes 1.6 K/uL (0.1-1.3); Absolute Neutrophil 8.1 K/uL (1.8-8.0); Basophils % 0.2 % (0-1.3); Eosinophils % 0.5 % (0-4.4); Hematocrit 29.3 % (39.6-49.0); Lymphocytes % 5.4 % (15.3-44.8); MCH 31.4 pg (27.0-35.0); MCV 96.7 fL (80-100); MPV 9.7 fL (7.6-11.3); Monocytes % 15.7 % (3.3-12.3); RBC Red Blood Cell Count 3.03 M/uL (4.33-5.43)
[2018-03-27 12:49] LABS: Anisocytosis 1+; Blood Morphology Comment NOTED (NOT SEEN); Macrocytosis 1+; Platelet Estimate ADEQ; Polychromasia 1+; Urine White Blood Cell Casts OK
[2018-03-27 12:50] LABS: Basophilic Stippling 1+
[2018-03-27] MEDS ORDERED: D50W 25 GM/50 ML SYRINGE IV PRN ×2 (14:05→14:08)
[2018-03-27] MEDS ORDERED: INSULIN -REGULAR HUMAN 50 UNIT/0.5 ML ML SQ SCH (14:05)
[2018-03-27] MEDS ORDERED: GLUCAGON 1 MG/VIAL IM PRN ×2 (14:05→14:08)
[2018-03-27] MEDS ORDERED: ONDANSETRON 4 MG/2 ML VIAL IV PRN (14:05)
[2018-03-27] MEDS: NEPRO 1,000 ML BOT FT SCH (15:21)
[2018-03-27] MEDS: ALPRAZOLAM 0.5 MG TABLET PO PRN (16:05)
[2018-03-27] MEDS ORDERED: FUROSEMIDE 20 MG/ 2ML VIAL IV SCH (17:00)
[2018-03-27] MEDS: INSULIN -REGULAR HUMAN 50 UNIT/0.5 ML ML SQ SCH (17:52)
--- NOTE | 2018-03-27 19:11 | EKG ---
Test Date: 2018-03-27 Test Time: 09:32:57 Robotype Operator: PRICE MEASUREMENT RESULTS: Intervals: Rate: 61 NC: 194 QRSD: 88 QT: 426 QTc: 428 Reedy: P: 33 NC: 194 QRS: 40 T: 83 INTERPRETIVE STATEMENTS: Normal sinus rhythm Possible Left atrial enlargement Septal infarct, age undetermined T wave abnormality, consider lateral ischemia Abnormal ECG Compared to ECG 03/17/2018 14:09:39 T-wave abnormality now present Possible ischemia now present Myocardial infarct finding still present Electronically Signed On 03-27-18 19:09:42 CDT by Jose Martinez
[2018-03-27] MEDS ORDERED: NA CHLORIDE 0.9% 1,000 ML IV PRN (20:09)
[2018-03-27] MEDS ORDERED: CARVEDILOL 25 MG TAB FT SCH (21:00)
[2018-03-27] MEDS: cloNIDine HCl 0.1 MG TAB FT SCH (22:08)
[2018-03-27] MEDS: levETIRAcetam 500 MG TAB FT SCH (22:09)
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
[2018-03-28] MEDS ORDERED: NA CHLORIDE 0.9% 250 ML ONE (04:15)
[2018-03-28 05:01] LABS: Absolute Lymphocytes (CBC) 1.1 K/uL (0.7-4.9); Absolute Monocytes 1.5 K/uL (0.1-1.3); Absolute Neutrophil 3.9 K/uL (1.8-8.0); Basophils % 0.6 % (0-1.3); Hematocrit 26.1 % (39.6-49.0); Lymphocytes % 15.6 % (15.3-44.8); MCH 31.7 pg (27.0-35.0); MCV 98.2 fL (80-100); MPV 10.2 fL (7.6-11.3); RBC Red Blood Cell Count 2.66 M/uL (4.33-5.43)
[2018-03-28 05:14] LABS: Monocytes % 21.6 % (3.3-12.3)
[2018-03-28 05:33] LABS: Potassium 3.5 mmol/L (3.5-5.1)
[2018-03-28] MEDS: INSULIN -REGULAR HUMAN 50 UNIT/0.5 ML ML SQ SCH ×4 (06:00→18:56)
[2018-03-28] MEDS: Pantoprazole (granules) 40 MG/BLIST PACKET FT SCH (08:39)
[2018-03-28] MEDS: ATORVASTATIN 40 MG TAB FT SCH (08:39)
[2018-03-28] MEDS: levETIRAcetam 500 MG TAB FT SCH ×2 (08:39→22:28)
[2018-03-28] MEDS ORDERED: HOME MED 1 EA UNK (Omeprazole [Omeprazole] 20 MG) FT SCH (09:00)
[2018-03-28] MEDS: FUROSEMIDE 40 MG TABLET FT SCH (09:00)
[2018-03-28] MEDS ORDERED: CARVEDILOL 6.25 MG TAB PO SCH (09:00)
[2018-03-28] MEDS: cloNIDine HCl 0.1 MG TAB FT SCH (09:00)
--- NOTE | 2018-03-28 10:39 | P.CNS ---
Date of Consult: 03/28/18 Reason for Consult: Respiratory failure Chief Complaint: Respiratory failure History of Present Illness: Patient is 72 years of age was recently discharged admitted to the hospital with the respiratory distress [id number] of the bedside patient is nonverbal currently on BiPAP hemodynamically stable oxygenation satisfactory patient was hypercapnic felt he may have aspirated this happened rather suddenly Allergies No Known Allergies Allergy (Verified 03/18/18 01:25) Home Medications: Omeprazole 20 mg FT DAILY 12/15/16 Atorvastatin Calcium [Lipitor] 40 mg FT DAILY 02/12/17 Ipratropium/Albuterol Sulfate [Iprat-Albut 0.5-3(2.5) mg/3 ml] 1 vial IH Q4H NPH, Human Insulin Isophane [Humulin N] 12 unit SQ Q12H 06/13/17 levETIRAcetam [Keppra*] 500 mg FT BID 06/13/17 Nepro Shake [Nepro*] 40 ml FT CONT 07/07/17 ALPRAZolam [Xanax*] 0.25 mg FT BID PRN 03/06/18 Acetaminophen [Tylenol] 325 mg FT Q4HR PRN 03/06/18 Carvedilol [Coreg] 25 mg FT BID 03/06/18 Furosemide [Lasix] 40 mg FT DAILY 03/06/18 Guaifenesin/Codeine Phosphate [Guaifenesin-Codeine Syrup] 10 ml FT BID PRN 03/06 cloNIDine HCl [Clonidine HCl] 0.2 mg FT Q12H 03/06/18 Fluconazole [Diflucan] 200 mg FT DAILY #7 tablet 03/20/18 Cephalexin [Keflex] 5 ml FT BID 03/27/18 - Past Medical/Surgical History Diabetic: Yes -: stroke 2009 -: DM -: HTN -: extensive coe 2015 -: ESRD with HD T,, fri -: ESRD -: bilateral AKA -: multiple skin grafts -: peg tube -: HD Access -: Tracheostomy - Family History Mother Medical History: Hypertension Sister Medical History: Diabetes - Social History Smoking Status: Unknown if ever smoked Alcohol use: No CD- Drugs: No Caffeine use: No Place of Residence: Home Review of Systems is unable to be obtained Physical Examination Temp Pulse Resp BP Pulse Ox 98.9 F 78 24 H 82/54 L 97 03/28/18 08:00 03/28/18 08:00 03/28/18 08:00 03/28/18 08:00 03/28/18 08:00 General: Unresponsive Neck: Supple Respiratory: Clear to auscultation bilaterally Cardiovascular: Normal S1 S2 Gastrointestinal: Normal bowel sounds, Soft and benign Integumentary: Other (Patient is a bilateral amputee with extensive grafting) Neurological: Other (Nonverbal unresponsive) Laboratory Data (last 24 hrs) 03/27/18 10:55: WBC 10.3 D, Hgb 9.5 L, Hct 29.3 L, Plt Count 199 - Problems (1) Respiratory failure Current Visit: Yes Status: Acute Plan: Patient is 72 years of age admitted with acute on chronic respiratory failure currently on BiPAP hemodynamically stable chest x-ray shows some bilateral opacity right greater than the left he may have aspirated patient has chronic hypoventilation at baseline he will benefit from home BiPAP patient is mildly anemic cultures are so far negative I have ordered 2D echo with Doppler add Zosyn for possible aspiration pneumonia chest x-ray patient is on dialysis Qualifiers: Chronicity: acute on chronic
[2018-03-28] MEDS: PIPER/TAZO/NS 2.25gm 2.25 GM/50 ML BAG IVPB SCH ×2 (11:55→17:38)
--- NOTE | 2018-03-28 12:32 | HP ---
Date of Admission: 03/27/2018 Chief Complaint: Aspiration, shortness of breath. History Of Present Illness: A 72-year-old male, who is on chronic hemodialysis. According to the markus edmonds, he had vomiting and possibly aspirated as witnessed by family members. The patient was brought to the ER. The patient's x-ray showed increased markings compatible with possible volume overload, possible aspiration right upper lung field. Based on this, the patient is admitted. The patient is noncommunicative. Past Medical History: Extensive, includes history of bilateral leg amputation, chronic bedsore, hype rtension, hyperlipidemia, end-stage renal disease on dialysis, type 2 diabetes. The patient also has recurrent episodes of hypotension, aspiration. Other past medical history is positive for history o f coe, stroke. Past Surgical History: Positive for history of tracheotomy, feeding tube status with PEG tube. Othe r surgical history includes leg amputation, angio access for dialysis, skin grafting. Other. Review of Systems: Not available from the family. Physical Examination: General: Reveals bedridden 72-year-old male, not able to communicate. He is on BiPAP. Vital Signs: Afebrile. HEENT: Otherwise negative. Neck: Supple. Chest: Scattered wheeze bilaterally. Heart: Regular. Abdomen: PEG tube functioning well. Extremities: Bilateral leg amputation as described. There is open area of the bedsore. Laboratory Data: White count normal. Procalcitonin elevated. Chest x-ray, increased pulmonary markings, compatible with volume overload, possible right-sided pneu monia. Assessment: 1.Aspiration, volume overload, causing dyspnea. 2.End-stage renal disease, on dialysis. 3.Type 2 diabetes. 4.Hypertension. 5.Hyperlipidemia. 6.Bilateral leg amputation status. 7.Old cerebrovascular accident. 8.Gastrostomy feeding status. 9.Tube feeding status. Plan: BiPAP, Rocephin. As his blood pressure is in low side his dose of carvedilol will be cut down . RRK/MODL Voice ID: [id number]
[2018-03-28 13:06] LABS: Arterial Blood Carboxyhemoglob 1.6 % (0-1.5); Blood Gas Oxyhemoglobin 85.9 % (94-97); Blood O2 Saturation 87.7 % (92-98.5)
--- NOTE | 2018-03-28 14:20 | RAD REPORT ---
EXAM DESCRIPTION: RAD - Chest Single View - 03/28/2018 2:11 pm CLINICAL HISTORY: Respiratory failure Chest pain. COMPARISON: Chest Single View dated 03/27/2018; Chest Single View dated 03/17/2018; Chest Single View d ated 03/10/2018; Chest Single View dated 03/09/2018Chest Single View dated 03/27/2018; Chest Single View dated 03/17/2018; Chest Single View dated 03/10/2018; Chest Single View dated 03/09/2018; Chest Single V iew dated 03/08/2018 FINDINGS: Portable technique limits examination quality. Mild bilateral pulmonary opacities are again noted, greatest in the right upper lobe and left retroca rdiac region, appearing mildly improved since the prior study. The heart is normal in size. No displa nilda fractures.Left-sided venous catheter has tip in the right atrium. IMPRESSION: Mild improvement lung aeration since comparative study.
[2018-03-28] MEDS: NEPRO 1,000 ML BOT FT SCH (17:38)
--- NOTE | 2018-03-28 21:33 | PN ---
Date of Progress Note: 03/28/2018 Subjective: The patient is status post dialysis yesterday. We managed to remove 1.7 L. Had low blo od pressure. We gave him 200 of bolus. Objective: Vital Signs: Blood pressure 104/54, pulse of 74. Chest: Crackles, bilateral base. Heart: S1, S2. Regular. Abdomen: Soft, nontender. Extremity: Bilateral above-knee amputation. Laboratory Data: WBC 6.9, H and H 8.4/26.1, platelet 177. Sodium 142, potassium 3.5, bicarb 29, BUN 42, creatinine 2.8, calcium 8.6. BNP 21956. Current Medication: The patient on its include: 1.Clonidine. 2.Carvedilol. 3.Zosyn. 4.Epogen. 5.Atorvastatin. 6.Tylenol. 7.Keppra. 8.Lasix 40 daily. 9.Nepro. Assessment And Plan: 1.End-stage renal disease, over volume. We will try to arrange for another session of dialysis jose alejandro rrow. We will get chest x-ray to evaluate the fluid status. 2.Hypertension, with occasional low blood pressure. Discontinue all blood pressure medication. 3.Secondary hyperparathyroidism, stable. 4.Anemia. Continue Epogen. 5.Hypercapnic respiratory failure secondary to chronic obstructive pulmonary disease and pneumonia. Continue antibiotic. Continue BiPAP. JENNIFER Voice ID: [id number] Report ID: [id number]
[2018-03-29] MEDS: PIPER/TAZO/NS 2.25gm 2.25 GM/50 ML BAG IVPB SCH ×3 (01:02→17:38)
[2018-03-29] MEDS: INSULIN -REGULAR HUMAN 50 UNIT/0.5 ML ML SQ SCH ×4 (06:00→17:57)
--- NOTE | 2018-03-29 08:22 | RAD REPORT ---
EXAM DESCRIPTION: [place] Single View03/29/2018 6:18 am CLINICAL HISTORY: Shortness of breath COMPARISON: 03/28/2018 FINDINGS: Mild pulmonary opacities are unchanged bilaterally. The heart is mildly enlarged. A centra l venous catheter remains in place IMPRESSION: No change in bilateral pulmonary opacities which probably represent pulmonary edema
[2018-03-29] MEDS: FUROSEMIDE 40 MG TABLET FT SCH (09:44)
[2018-03-29] MEDS: levETIRAcetam 500 MG TAB FT SCH ×2 (09:44→21:09)
[2018-03-29] MEDS: Pantoprazole (granules) 40 MG/BLIST PACKET FT SCH (09:45)
[2018-03-29] MEDS: ATORVASTATIN 40 MG TAB FT SCH (09:45)
--- NOTE | 2018-03-29 13:52 | PN ---
Date of Progress Note: 03/29/2018 Subjective: The patient has shortness of breath, still on BiPAP. Physical Examination: Vital Signs: Blood pressure 105/56, pulse of 90, afebrile. Chest: Wheezing bilateral. Heart: S1, S2. Systolic murmur. Abdomen: Soft, nontender. PEG tube. Extremities: Bilateral amputee. Laboratory Data: WBC 6.9, H and H 8.4/26.1, and platelets 177. Sodium 142, potassium 3.5, bicarb 29 , BUN 42, creatinine 2.8, calcium 8.6. BNP 12,407. Current Medications: The patient on its include: 1.Zosyn. 2.Epogen. 3.Atorvastatin. 4.Keppra. 5.Lasix. 6.Atrovent. Assessment And Plan: 1.End-stage renal disease, slightly on the wet side. I am going to do sequential today. 2.Hypertension, currently hypotensive. Hold all blood pressure medications to utilize blood pressur e for more ultrafiltration. 3.Pneumonia, possible aspiration with chronic obstructive pulmonary disease exacerbation. The patie nt was started on Zosyn. We will follow up. We will add Solu-Medrol and albuterol, and we will follow up. 4.Congestive heart failure. We will ultrafiltrate. LUMA/ALISON Voice ID: [id number] Report ID: [id number]
[2018-03-29] MEDS: ALBUTEROL 2.5 MG/3 ML NEB SOL NEB SCH ×2 (14:00→20:00)
[2018-03-29] MEDS: MANNITOL 25% 12.5 GM/50 ML VIAL IV PRN (14:45)
[2018-03-29] MEDS: ALBUMIN HUMAN 25% 50 ML IV SCH (14:45)
[2018-03-29] MEDS: EPOETIN ALFA 10,000 UNIT/ML VIAL IV SCH (14:52)
[2018-03-29] MEDS: METHYLPREDNISOLONE 40 MG INJ IV SCH (17:38)
[2018-03-29] MEDS: NEPRO 1,000 ML BOT FT SCH (19:43)
[2018-03-30] MEDS: INSULIN -REGULAR HUMAN 50 UNIT/0.5 ML ML SQ SCH ×4 (00:26→17:29)
[2018-03-30] MEDS: PIPER/TAZO/NS 2.25gm 2.25 GM/50 ML BAG IVPB SCH ×3 (00:27→17:30)
[2018-03-30] MEDS: METHYLPREDNISOLONE 40 MG INJ IV SCH ×2 (00:27→09:31)
[2018-03-30] MEDS: ALBUTEROL 2.5 MG/3 ML NEB SOL NEB SCH ×2 (01:43→08:56)
--- NOTE | 2018-03-30 08:50 | RAD REPORT ---
EXAM DESCRIPTION: RAD - Chest Single View - 03/30/2018 7:16 am CLINICAL HISTORY: Respiratory failure Chest pain. COMPARISON: Chest Single View dated 03/29/2018; Chest Single View dated 03/28/2018; Chest Single View da blanche 03/27/2018; Chest Single View dated 03/17/2018 FINDINGS: Portable technique limits examination quality. Mild improvement in bilateral pulmonary opacities noted since comparative study. Left-sided venous ca theter tip in right atrium. Heart is mildly prominent in size. IMPRESSION: Mild improvement in lung aeration since comparative study.
[2018-03-30] MEDS: ATORVASTATIN 40 MG TAB FT SCH (09:31)
[2018-03-30] MEDS: FUROSEMIDE 40 MG TABLET FT SCH (09:31)
[2018-03-30] MEDS: levETIRAcetam 500 MG TAB FT SCH ×2 (09:31→22:08)
[2018-03-30] MEDS: Pantoprazole (granules) 40 MG/BLIST PACKET FT SCH (09:32)
--- NOTE | 2018-03-30 12:03 | P.PN ---
Subjective Date of Service: 03/30/18 Chief Complaint: Respiratory failure Subjective: Improving (Patient is doing better tolerating BiPAP) Review of Systems is unable to be obtained Physical Examination - Vital Signs Temperature: 97 F Blood Pressure: 110/68 Pulse: 76 Respirations: 20 Pulse Ox (%): 97 - Physical Exam General: Unresponsive Neck: Supple Respiratory: Clear to auscultation bilaterally Cardiovascular: Normal S1 S2 Assessment & Plan - Problems (Diagnosis) (1) Respiratory failure Onset Date: 03/30/18 Current Visit: Yes Status: Acute Plan: Patient admitted with respiratory failure possible aspiration pneumonia he is doing better on BiPAP noninvasive and order for him patient is only on 30% oxygen cultures are so far negative patient is on dialysis chest x-ray shows patchy bilateral infiltrates and a waiting noninvasive vent set up Dc steroids and scheduled nebulizers Qualifiers: Chronicity: acute on chronic
--- NOTE | 2018-03-30 12:23 | ECHO ---
HEIGHT: 5 ft 10 in WEIGHT: 157 lb 9.6 oz DATE OF STUDY: 03/30/[address]: Ralph Velázquez MD 2-DIMENSIONAL: YES M.MODE: YES DOPPLER: YES COLOR FLOW: YES TDS: PORTABLE: DEFINITY: BUBBLE STUDY: DIAGNOSIS: RESPIRATORY FAILURE CARDIAC HISTORY: CATHERIZATION: NO SURGERY: NO PROSTHETIC VALVE: NO PACEMAKER: NO MEASUREMENTS (cm) DIASTOLIC (NORMALS) SYSTOLIC (NORMALS) IVSd 1.5 (0.6-1.2) LA Diam 3.7 (1.9-4.0) LVEF 55-59% LVIDd 4.4 (3.5-5.7) LVIDs 3.4 (2.0-3.5) %FS 22% LVPWd 1.5 (0.6-1.2) Ao Diam 3.1 (2.0-3.7) 2 DIMENSIONAL ASSESSMENT: RIGHT ATRIUM: NORMAL LEFT ATRIUM: NORMAL RIGHT VENTRICLE: NORMAL LEFT VENTRICLE: NORMAL TRICUSPID VALVE: NORMAL MITRAL VALVE: NORMAL PULMONIC VALVE: NORMAL AORTIC VALVE: NORMAL PERICARDIAL EFFUSION: NONE AORTIC ROOT: NORMAL LEFT VENTRICULAR WALL MOTION: NORMAL DOPPLER/COLOR FLOW: NORMAL COMMENTS: NORMAL 2-DIMENSIONAL ECHOCARDIOGRAM WITH DOPPLER. TECHNOLOGIST: ELI SWENSON
[2018-03-30] MEDS: ALPRAZOLAM 0.5 MG TABLET PO PRN ×2 (13:13→18:17)
[2018-03-30] MEDS: ACETAMINOPHEN 325 MG TABLET FT PRN (18:17)
[2018-03-30] MEDS: NEPRO 1,000 ML BOT FT SCH (18:54)
[2018-03-30] MEDS: EPOETIN ALFA 10,000 UNIT/ML VIAL IV SCH (20:00)
[2018-03-31] MEDS: PIPER/TAZO/NS 2.25gm 2.25 GM/50 ML BAG IVPB SCH ×3 (00:17→17:39)
[2018-03-31] MEDS: INSULIN -REGULAR HUMAN 50 UNIT/0.5 ML ML SQ SCH ×4 (00:18→17:38)
[2018-03-31] MEDS: ALPRAZOLAM 0.5 MG TABLET PO PRN ×2 (00:18→20:43)
--- NOTE | 2018-03-31 00:50 | PN ---
Date of Progress Note: 03/29/2018 The patient was seen during dialysis yesterday. The patient had a borderline blood pressure of 100 sy stolic during dialysis; however, dialysis will be finished. He has few scattered wheezes. Heart othe rwise regular. RRK/MODL Voice ID: [id number] Report ID: [id number]
--- NOTE | 2018-03-31 00:50 | PN ---
Date of Progress Note: 03/30/2018 The patient was seen today. I had a long discussion with as well as daughter regarding his futu re outlook. I explained to him because of recurrent infections, respiratory issues as well as dialys is issues, his prognosis is poor. The patient's would like to consider hospice care. She was dany selby instructions regarding needed discussion with the community mental health social worker. After that I spoke to the viviane ent's 's sister who is a caregiver regarding the status. The patient is stable; however, his pro gnosis seems to be poor and requiring BiPAP support continuously. DAVID/ALISON Voice ID: [id number] Report ID: [id number]
--- NOTE | 2018-03-31 01:02 | PN ---
Date of Progress Note: 03/30/2018 Chief Complaint: End-renal disease and fluid overload. History Of Present Illness: The patient is scheduled to have dialysis with ultrafiltration today. T he patient has congestive heart failure with diastolic dysfunction and fluid overload. The patient r emains fluid overloaded and needs to have dialysis today. Review of Systems: Unobtainable, the patient has history of dementia. Physical Examination: General: Not in acute distress. Lungs: Few crackles at bases. Heart: S1, S2. Abdomen: Soft and benign. Extremities: Bilateral amputee. Laboratory Work: Hemoglobin 8.4, WBC 6.9, platelet count 177,000. Glucose 246. Sodium 142, potassi um 3.5, chloride 104, CO2 29, BUN 42, creatinine 2.8. BNP 12,407. Impression And Plan: 1.Congestive heart failure, fluid overload. Echocardiogram was ordered today to assess ejection fra ction. The patient has preserved ejection fraction. He has diastolic dysfunction. 2.Fluid overload. Continue dialysis with advanced ultrafiltration to control fluid overload. 3.Anemia in chronic kidney disease. Continue erythropoiesis-stimulating agent. 4.Renal osteodystrophy. Monitor phosphorus level and adjust treatment for hyperphosphatemia. EB/MODL Voice ID: [id number] Report ID: [id number]
[2018-03-31] MEDS: levETIRAcetam 500 MG TAB FT SCH ×2 (08:27→20:43)
[2018-03-31] MEDS: Pantoprazole (granules) 40 MG/BLIST PACKET FT SCH (08:27)
[2018-03-31] MEDS: ACETAMINOPHEN 325 MG TABLET FT PRN (08:27)
[2018-03-31] MEDS: FUROSEMIDE 40 MG TABLET FT SCH (08:27)
[2018-03-31] MEDS: ATORVASTATIN 40 MG TAB FT SCH (08:27)
[2018-03-31] MEDS: EPOETIN ALFA 10,000 UNIT/ML VIAL IV SCH (16:47)
--- NOTE | 2018-03-31 17:21 | PN ---
Date of Progress Note: 03/31/2018 Subjective: The patient is still on BiPAP. Had dialysis yesterday. We managed to remove 2200. Physical Examination: Vital Signs: Blood pressure 172/78, temperature 97.6, pulse of 73. Chest: Crackles bilateral wheezing. Heart: S1, S2. Systolic murmur. Abdomen: Soft, nontender. PEG tube. Extremities: Bilateral amputee. Laboratory Data: WBC 6.9, H and H 8.4/26.1, platelets 177. Sodium 142, potassium 3.5, bicarb 29, BU N 42, creatinine 2.8, calcium 8.6. Current Medications: The patient on include; 1.Epogen. 2.Zosyn. 3.Heparin. 4.Atorvastatin. 5.Omeprazole. 6.Keppra. 7.Lasix 40 daily. 8.Pantoprazole. Assessment And Plan: 1.End-stage renal disease, over volume. We will arrange for sequential of dialysis today, then he c an kind of go back hopefully to his schedule. 2.Hypertension. Use to be hypotensive. Currently, the patient is improving. We will keep holding the blood pressure medication and try to establish better volume control with the ultra filtration. 3.Pneumonia aspiration, continue Zosyn. Apparently, Dr. Mcfarlane discuss with the family regarding the poor prognosis overall, possible family going to consider hospice. We will follow up. JENNIFER Voice ID: [id number] Report ID: [id number]
[2018-03-31] MEDS: NEPRO 1,000 ML BOT FT SCH (21:20)
[2018-04-01] MEDS: PIPER/TAZO/NS 2.25gm 2.25 GM/50 ML BAG IVPB SCH ×3 (00:02→17:00)
[2018-04-01] MEDS: INSULIN -REGULAR HUMAN 50 UNIT/0.5 ML ML SQ SCH ×4 (00:03→18:00)
--- NOTE | 2018-04-01 01:42 | PN ---
The patient was seen during dialysis today. He is tolerating dialysis. His blood pressure is 110/70 . The patient's family had consultation regarding his future care. at this point has not accep blanche the hospice care; however after consultation, it was felt that the patient would need long-term a cute care, for this reason LTAC has been consulted. This was discussed with the family today. DAVID/ALISON Voice ID: [id number] Report ID: [id number]
[2018-04-01] MEDS: ALPRAZOLAM 0.5 MG TABLET PO PRN (02:12)
[2018-04-01] MEDS ORDERED: HALOPERIDOL LACT 5 MG/ML INJ IM ONE (04:29)
[2018-04-01] MEDS: FUROSEMIDE 40 MG TABLET FT SCH (09:00)
[2018-04-01] MEDS: ATORVASTATIN 40 MG TAB FT SCH (09:10)
[2018-04-01] MEDS: levETIRAcetam 500 MG TAB FT SCH ×2 (09:10→20:58)
[2018-04-01] MEDS: Pantoprazole (granules) 40 MG/BLIST PACKET FT SCH (09:10)
[2018-04-01] MEDS: ACETAMINOPHEN 325 MG TABLET FT PRN ×2 (09:10→14:11)
[2018-04-01] MEDS ORDERED: Pharmacy Consult 1 EA XX PRN (14:44)
--- NOTE | 2018-04-01 14:50 | RAD REPORT ---
EXAM DESCRIPTION: RAD - Chest Single View - 04/01/2018 2:44 pm CLINICAL HISTORY: COPD Chest pain. COMPARISON: Chest Single View dated 03/30/2018; Chest Single View dated 03/29/2018; Chest Single View da blanche 03/28/2018; Chest Single View dated 03/27/2018 FINDINGS: Portable technique limits examination quality. Bilateral pulmonary opacities are noted, mildly worse than on the comparative study. The findings pro bably represent mild worsening in pulmonary edema or volume overload. The heart is normal in size. Ri ght-sided venous catheter has its tip in the right atrium.
[2018-04-01] MEDS ORDERED: VANCOMYCIN 500 MG in NA CHLORIDE 0.9% 100 ML IVPB ONE ×2 (15:00→17:00)
--- NOTE | 2018-04-01 15:10 | PN ---
Date of Progress Note: 04/01/2018 Subjective: The patient still on BiPAP, but his oxygenation better. The patient had dialysis yester day. I managed to remove 2200. Physical Examination: Vital Signs: Blood pressure 104/58, pulse of 90. Chest: Clear to auscultation. Heart: S1, S2. Regular. Abdomen: Soft, nontender. Extremities: Bilateral amputee. Laboratory Data: WBC 6.9, H and H 8.4/26.1, platelets 177. Sodium 142, potassium 3.5, bicarb 29, BU N 42, creatinine 2.8, calcium 8.6. Medications: Current medications the patient on its include Zosyn 2.25 q.8, Epogen, heparin, atorvas tatin, Keppra, Lasix 40 daily, pantoprazole. Assessment And Plan: 1.End-stage renal disease, looked to me better volume status right now. I am going to continue the patient on dialysis. I will schedule the patient for dialysis for tomorrow and back to his schedule as TTS. We will try to challenge the patient again tomorrow and we will follow up. 2.Respiratory failure secondary to pneumonia and over volume. I am going to continue dialysis, cont inue antibiotic. We will check BMP. I am going to repeat chest x-ray. 3.Healthcare-associated pneumonia as above. Continue Zosyn for the time being. JENNIFER Voice ID: [id number] Report ID: [id number]
[2018-04-01] MEDS ORDERED: NA CHLORIDE 0.9% 100 ML ONE (17:51)
[2018-04-01] MEDS ORDERED: NA CHLORIDE 0.9% 500 ML ONE (18:12)
[2018-04-01 18:24] LABS: Arterial Blood Carboxyhemoglob 1.5 % (0-1.5)
[2018-04-01 18:26] LABS: Absolute Lymphocytes (CBC) 1.6 K/uL (0.7-4.9); Absolute Monocytes 1.6 K/uL (0.1-1.3); Absolute Neutrophil 17.4 K/uL (1.8-8.0); Basophils % 0.1 % (0-1.3); Eosinophils % 0.2 % (0-4.4); Hematocrit 33.7 % (39.6-49.0); Lymphocytes % 7.8 % (15.3-44.8); MCH 30.7 pg (27.0-35.0); MCV 96.8 fL (80-100); Monocytes % 7.8 % (3.3-12.3); RBC Red Blood Cell Count 3.49 M/uL (4.33-5.43)
[2018-04-01 18:36] LABS: Potassium 3.8 mmol/L (3.5-5.1)
[2018-04-01] MEDS ORDERED: FLUCONAZOLE 400 MG IVPB 400 MG/200 ML BAG IV ONE (18:57)
[2018-04-01] MEDS ORDERED: Meropenem 500 MG VIAL IV SCH (19:00)
--- NOTE | 2018-04-01 19:03 | P.PN ---
Subjective Date of Service: 04/01/18 Chief Complaint: Respiratory failure shock Subjective: Worsening (Patient is worsening is becoming more tachypneic hypotensive chest x-rays worse) Review of Systems is unable to be obtained Physical Examination - Vital Signs Temperature: 99.3 F Blood Pressure: 94/52 Pulse: 94 Respirations: 30 Pulse Ox (%): 93 - Physical Exam General: Unresponsive Respiratory: Crackles/rales (Crackles on the right side) Cardiovascular: Normal S1 S2 - Studies Microbiology Data (last 24 hrs): 03/27/18 10:20 Blood - Blood Aerobic Blood Culture - Final No growth in 5 days. 03/27/18 10:20 Blood - Blood Anaerobic Blood Culture - Final 03/27/18 09:30 Blood - Blood Aerobic Blood Culture - Final No growth in 5 days. 03/27/18 09:30 Blood - Blood Anaerobic Blood Culture - Final Assessment & Plan - Problems (Diagnosis) (1) Respiratory failure Onset Date: 03/30/18 Current Visit: Yes Status: Acute Plan: Patient's condition is clinically worse these x-rays worse increasing infiltrate in the right upper lobe hypotensive agree with vancomycin change to meropenem Dc Zosyn and Diflucan patient is at risk for fungal superinfection family members present and they do not want CPR or cardioversion patient is on dialysis the bolus of IV fluids renal function is creatinine and BUN are elevated patient is also hyperglycemia Qualifiers: Chronicity: acute on chronic
[2018-04-01 19:05] LABS: Anisocytosis 1+; Blood Morphology Comment NOTED (NOT SEEN); Platelet Estimate ADEQ; Polychromasia 1+
[2018-04-01] MEDS ORDERED: Meropenem 500 MG/100 ML BAG ONE (20:49)
[2018-04-01] MEDS ORDERED: FLUCONAZOLE 200mg IVPB 400 MG/200 ML BAG IV ONE (20:49)
[2018-04-01] MEDS: NEPRO 1,000 ML BOT FT SCH (21:45)
[2018-04-01] MEDS: Meropenem 250 MG in NA CHLORIDE 0.9% 100 ML IV SCH (23:00)
--- NOTE | 2018-04-01 23:55 | PN ---
Subjective: The patient is not doing well today. He has fever. He also has hypoxia. He had to put back on 100% BiPAP. I discussed the case with Dr. Velázquez in view of worsening of hypoxia. Vancom ycin has been ordered and his LTAC transfer has been on hold. DAVID/ALISON Voice ID: [id number] Report ID: [id number]
[2018-04-02] MEDS: INSULIN -REGULAR HUMAN 50 UNIT/0.5 ML ML SQ SCH ×4 (00:08→18:00)
[2018-04-02 04:41] LABS: Potassium 3.7 mmol/L (3.5-5.1)
[2018-04-02] MEDS: FUROSEMIDE 40 MG TABLET FT SCH (08:28)
[2018-04-02] MEDS: levETIRAcetam 500 MG TAB FT SCH ×2 (09:32→20:48)
[2018-04-02] MEDS: ATORVASTATIN 40 MG TAB FT SCH (09:32)
[2018-04-02] MEDS: Pantoprazole (granules) 40 MG/BLIST PACKET FT SCH (09:33)
[2018-04-02] MEDS: EPOETIN ALFA 10,000 UNIT/ML VIAL IV SCH (11:34)
[2018-04-02] MEDS: ALBUMIN HUMAN 25% 50 ML IV SCH (11:50)
--- NOTE | 2018-04-02 14:49 | PN ---
Date of Progress Note: 04/02/2018 Subjective: The patient seen on dialysis. The patient had low blood pressure, severely hypoxemic. We could not remove any fluid on the dialysis. Physical Examination: Vital Signs: Blood pressure 90/50, pulse of 75, afebrile. Chest: Crackles bilateral. Heart: S1, S2. Regular. Tachycardic. Abdomen: Soft, nontender. Extremities: Bilateral amputee. Laboratory Data: WBC 20.7, H and H 10.7/33.7, platelets 268. Sodium 143, potassium 3.7, bicarb 23, BUN 125, creatinine 4.6, glucose 307. Phosphorus 1, calcium of 9.2. Current Medications: 1.Fluconazole. 2.Meropenem. 3.Vancomycin. 4.Epogen. 5.Alprazolam. 6.Haloperidol. 7.Keppra. 8.Lasix. 9.Zofran. 10.Pantoprazole. Assessment And Plan: 1.End-stage renal disease, still over volume. The patient severely hypoxemic. The patient has over all poor prognosis. If his condition continued to be deteriorating, the patient will need to be call sferred to another facility to have CVVH, to establish better volume control for the patient. We apple l discuss with the family the code status and the patient regarding the transfer. I am going to go a head and send for culture from the [facility]. Continue current antibiotic. 2.Septic shock. Discontinue Lasix. We dialyzing the patient on slow flow with ultrafiltration, but the patient is going to need CVVH and cover with antibiotic, and we will follow up. We will discuss with the family the code status. 3.Pneumonia, aspiration, as above. 4.Respiratory failure. Continue BiPAP. We will discuss with the patient regarding code status. LUMA/MODL Voice ID: [id number] Report ID: [id number]
[2018-04-02] MEDS: VANCOMYCIN 500 MG in NA CHLORIDE 0.9% 100 ML IVPB SCH (14:57)
[2018-04-02] MEDS ORDERED: MIDODRINE HCL 5 MG TABLET PO ONE (15:00)
[2018-04-02] MEDS: Meropenem 250 MG in NA CHLORIDE 0.9% 100 ML IV SCH ×2 (16:11→22:50)
[2018-04-02] MEDS: FLUCONAZOLE 400 MG IVPB 400 MG/200 ML BAG IV SCH (20:47)
[2018-04-02] MEDS: NEPRO 1,000 ML BOT FT SCH (22:00)
--- NOTE | 2018-04-02 22:31 | PN ---
Subjective: I examined the patient this morning. His blood pressure was stable. His O2 saturation was 90% even though he required 70% FiO2. However, after dialysis the patient became hypotensive aga in and hypoxic. The patient could not finish the dialysis. I spoke to the nurse on the 4th floor. I spoke to the daughter regarding his care and prognosis today. The patient cannot be transferred to day. In view of these intolerance to dialysis and respiratory failure outlook, he is even chu. The patient is already on BiPAP and IV antibiotic. This was explained to the daughter. DAVID/ALISON Voice ID: [id number] Report ID: [id number]
[2018-04-02] MEDS: ALBUTEROL 2.5 MG/3 ML NEB SOL NEB PRN (23:28)
[2018-04-02] MEDS: IPRATROPIUM BROM 0.5MG/2.5ML NEB PRN (23:28)
[2018-04-03] MEDS: INSULIN -REGULAR HUMAN 50 UNIT/0.5 ML ML SQ SCH ×5 (00:08→23:40)
[2018-04-03 06:10] LABS: Phosphorus 1.4 mg/dL (2.5-4.9); Potassium 3.5 mmol/L (3.5-5.1)
[2018-04-03] MEDS: ALBUTEROL 2.5 MG/3 ML NEB SOL NEB PRN ×2 (08:04→18:40)
[2018-04-03] MEDS: IPRATROPIUM BROM 0.5MG/2.5ML NEB PRN ×2 (08:04→18:40)
[2018-04-03] MEDS: levETIRAcetam 500 MG TAB FT SCH ×2 (10:09→21:39)
[2018-04-03] MEDS: Meropenem 250 MG in NA CHLORIDE 0.9% 100 ML IV SCH ×2 (10:09→23:40)
[2018-04-03] MEDS: Pantoprazole (granules) 40 MG/BLIST PACKET FT SCH (10:09)
--- NOTE | 2018-04-03 12:13 | P.PN ---
Subjective Date of Service: 04/03/18 Chief Complaint: Respiratory failure Patient is paced AV somewhat better today he is less tachypneic FiO2 is been decline to 50% with a sat 96% continues to remain unresponsive Review of Systems is unable to be obtained Physical Examination - Vital Signs Temperature: 97.8 F Blood Pressure: 118/61 Pulse: 89 Respirations: 30 Pulse Ox (%): 96 - Physical Exam General: Comatose Respiratory: Clear to auscultation bilaterally Cardiovascular: Regular rate/rhythm Gastrointestinal: Normal bowel sounds, Soft and benign Assessment & Plan - Problems (Diagnosis) (1) Respiratory failure Onset Date: 03/30/18 Current Visit: Yes Status: Acute Plan: Patient admitted with respiratory failure Chem 7 CBC chest x-ray ordered his FiO2 requirement has declined at rate sat to 90% repeat ABGs discuss with family members recommend hospice care cultures are pending prognosis very poor Qualifiers: Chronicity: acute on chronic
[2018-04-03 12:18] LABS: Absolute Lymphocytes (CBC) 1.2 K/uL (0.7-4.9); Absolute Monocytes 1.2 K/uL (0.1-1.3); Absolute Neutrophil 15.7 K/uL (1.8-8.0); Basophils % 0.1 % (0-1.3); Eosinophils % 0.5 % (0-4.4); Hematocrit 27.6 % (39.6-49.0); Lymphocytes % 6.6 % (15.3-44.8); MCV 96.6 fL (80-100); Monocytes % 6.7 % (3.3-12.3); RBC Red Blood Cell Count 2.86 M/uL (4.33-5.43)
[2018-04-03 12:57] LABS: Anisocytosis 1+; Blood Morphology Comment NOTED (NOT SEEN); Platelet Estimate ADEQ; Polychromasia 1+
[2018-04-03 13:00] LABS: Potassium 3.6 mmol/L (3.5-5.1)
[2018-04-03] MEDS: NEPRO 1,000 ML BOT FT SCH (13:38)
--- NOTE | 2018-04-03 13:52 | RAD REPORT ---
EXAM DESCRIPTION: RAD - Chest Single View - 04/03/2018 1:45 pm CLINICAL HISTORY: Pneumonia, fluid overload COMPARISON: April 01, March 30 TECHNIQUE: AP portable chest image was obtained 1333 hours . FINDINGS: Low lung volumes are again noted. Airspace opacification of the right lung field has show no improvement. Mid left lung field opacification is slightly worse than the prior study. Cardiac augustina houette remains enlarged. Double-lumen dialysis catheter remains in place. No measurable pleural effu sourav and no pneumothorax. No gross bony abnormality seen. No acute aortic findings suspected. IMPRESSION: Slight worsening of the airspace opacification in the left midlung field. Right upper lung field pulmonary edema or infiltrate stable from comparison.
[2018-04-03 13:53] LABS: Arterial Blood Carboxyhemoglob 1.4 % (0-1.5); Blood Gas Oxyhemoglobin 84.5 % (94-97); Blood O2 Saturation 86.2 % (92-98.5)
--- NOTE | 2018-04-04 02:39 | PN ---
Date of Progress Note: 04/03/2018 Chief Complaint: End-stage renal disease, on dialysis. Subjective: The patient received dialysis yesterday. The patient had episode of hypotension. He has congestive heart failure and he is to have CVVHD because of persistent hypotension. Dialysis could not be done effectively with ultrafiltration. The patient has fluid overload. The patient is to be transferred to higher level of care. Septic shock. The patient had blood culture, results are attending. The patient has been treated for aspiration pneumonia. Review of Systems: Unobtainable. Objective: General: The patient is nonverbal. He has history of dementia. Lungs: Crackles bilaterally. Heart: S1, S2. Abdomen: Soft, benign. Extremities: Bilateral amputee. Laboratory Work: Hemoglobin 8.9, WBC 18.2, platelet count is 219,000. Chemistry showed sodium 141, potassium 3.6, chloride 106, CO2 26, BUN 74, creatinine 3.2, calcium 9.2, phosphorus 1.4. Impression And Plan: 1. Hypophosphatemia. Binders will be stopped. At this point, the patient may need potassium phosphate replacement to control hypophosphatemia. Monitor electrolytes closely. The patient has episodes of hypotension and transfer is pending for CVVHD to higher level of care. 2. Aspiration pneumonia. Monitor blood culture. Recent blood culture from April 02 showed no growth. Sputum culture will be obtained and pending. 3. Continue antibiotics. The patient may need pressors for blood pressure support. The patient is receiving albumin for blood pressure support. I spent total 36 min including 25 min to coordinate care plan. SHAY/ALISON Voice ID: [id number] Report ID: [id number] JACK
[2018-04-04 05:00] VITALS: BMI 21.6
[2018-04-04 06:19] LABS: Albumin 1.9 g/dL (3.4-5.0); Phosphorus 1.9 mg/dL (2.5-4.9); Potassium 3.8 mmol/L (3.5-5.1)
[2018-04-04] MEDS: INSULIN -REGULAR HUMAN 50 UNIT/0.5 ML ML SQ SCH ×3 (06:25→18:00)
[2018-04-04] MEDS: Pantoprazole (granules) 40 MG/BLIST PACKET FT SCH (10:16)
[2018-04-04] MEDS: levETIRAcetam 500 MG TAB FT SCH ×2 (10:16→21:46)
[2018-04-04] MEDS: Meropenem 250 MG in NA CHLORIDE 0.9% 100 ML IV SCH ×2 (10:34→23:06)
--- NOTE | 2018-04-04 10:40 | PN ---
Date of Progress Note: 04/04/2018 Chief Complaint: End-stage renal disease, on dialysis. The patient was to be transferred for CVVHD because he developed hypotension and could not tolerate hemodialysis. Today, blood pressure is much better. Systolic blood pressure is up to 120. The patient will have dialysis with ultrafiltration t carissa to control fluid overload and provide metabolic clearance. The patient is dialysis dependent. Review of Systems: Unobtainable. The patient has a history of dementia. Lungs: Crackles bilaterally. Heart: S1, S2. Abdomen: Soft and benign. Extremities: Bilaterally pitting peripheral edema present. Laboratory Work: Sodium 143, potassium 3.8, chloride 106, CO2 is 25, BUN 96, creatinine 3.90, glucos e 284, albumin 1.9. Impression And Plan: 1.End-stage renal disease. Dialysis is scheduled today. Monitor blood pressure closely. 2.Hypophosphatemia binder stopped. The patient may need potassium phosphate replacement to control hyperphosphatemia. Monitor electrolytes. 3.Aspiration pneumonia, respiratory failure. Continue oxygen supplementation. Antibiotics ordered f or aspiration pneumonia. Blood culture did not show growth. 4.Hypotension. Consider midodrine for blood pressure support. EB/MODL Voice ID: [id number] Report ID: [id number]
[2018-04-04] MEDS: MIDODRINE HCL 5 MG TABLET FT SCH ×2 (14:00→21:46)
[2018-04-04] MEDS: EPOETIN ALFA 10,000 UNIT/ML VIAL IV SCH (15:11)
[2018-04-04] MEDS: VANCOMYCIN 500 MG in NA CHLORIDE 0.9% 100 ML IVPB SCH (15:52)
[2018-04-04] MEDS: NEPRO 1,000 ML BOT FT SCH (18:18)
[2018-04-04] MEDS: FLUCONAZOLE 400 MG IVPB 400 MG/200 ML BAG IV SCH (21:46)
--- NOTE | 2018-04-04 22:32 | PN ---
The patient had dialysis done today. He tolerated the procedure. The patient still has a purulent d rainage from the tracheotomy site. I spoke to the again regarding the care. I suggested that w e have a conference with the daughter as well as herself in view of multiple issues. She said she wi ll talk to the daughter regarding arranging a conference with all the doctors involved. DAVID/ALISON Voice ID: [id number] Report ID: [id number]
--- NOTE | 2018-04-04 22:32 | PN ---
Date of Progress Note: 04/03/2018 The patient is doing poorly and his daughter and called me regarding his prognosis. In view of sepsis, hypertension, and inability to tolerate dialysis the patient's prognosis is poor. This was e xplained to the family. The patient meanwhile will be continued on antibiotics and BiPAP. DAVID/ALISON Voice ID: [id number] Report ID: [id number]
[2018-04-04] MEDS: ACETAMINOPHEN 325 MG TABLET FT PRN (23:00)
[2018-04-04] MEDS: ALBUTEROL 2.5 MG/3 ML NEB SOL NEB PRN (23:26)
[2018-04-04] MEDS: IPRATROPIUM BROM 0.5MG/2.5ML NEB PRN (23:26)
[2018-04-05] MEDS: INSULIN -REGULAR HUMAN 50 UNIT/0.5 ML ML SQ SCH ×4 (00:23→18:05)
[2018-04-05] MEDS: ACETAMINOPHEN 325 MG TABLET FT PRN (04:30)
[2018-04-05 05:20] LABS: Albumin 1.9 g/dL (3.4-5.0); Magnesium 2.3 mg/dL (1.8-2.4); Phosphorus 2.2 mg/dL (2.5-4.9); Potassium 3.9 mmol/L (3.5-5.1)
[2018-04-05] MEDS: NA CHLORIDE 0.9% 250 ML IV PRN ×2 (05:30→06:02)
[2018-04-05] MEDS ORDERED: NA CHLORIDE 0.9% 100 ML IV ONE (08:00)
[2018-04-05] MEDS ORDERED: POTASS/SODIUM PHOSPHATE 1 PKT POWD.PACK FT SCH (09:00)
[2018-04-05 09:20] LABS: Arterial Blood Carboxyhemoglob 1.4 % (0-1.5); Blood Gas Oxyhemoglobin 91.9 % (94-97); Blood O2 Saturation 93.8 % (92-98.5)
[2018-04-05] MEDS: MIDODRINE HCL 5 MG TABLET FT SCH ×3 (09:22→23:00)
[2018-04-05] MEDS: levETIRAcetam 500 MG TAB FT SCH ×2 (09:23→22:59)
[2018-04-05] MEDS: Pantoprazole (granules) 40 MG/BLIST PACKET FT SCH (09:23)
[2018-04-05] MEDS: PIPER/TAZO/NS 2.25gm 2.25 GM/50 ML BAG IVPB SCH ×2 (09:41→16:08)
[2018-04-05 09:55] LABS: Absolute Lymphocytes (CBC) 1.4 K/uL (0.7-4.9); Absolute Monocytes 1.2 K/uL (0.1-1.3); Absolute Neutrophil 16.3 K/uL (1.8-8.0); Basophils % 0.3 % (0-1.3); Eosinophils % 0.4 % (0-4.4); Hematocrit 26.6 % (39.6-49.0); Lymphocytes % 7.6 % (15.3-44.8); MCH 30.9 pg (27.0-35.0); MCV 96.9 fL (80-100); MPV 9.7 fL (7.6-11.3); Monocytes % 6.5 % (3.3-12.3); RBC Red Blood Cell Count 2.74 M/uL (4.33-5.43)
[2018-04-05] MEDS ORDERED: ALBUMIN HUMAN 25% 100 ML IV ONE (10:00)
[2018-04-05] MEDS ORDERED: MIDODRINE HCL 5 MG TABLET PO ONE (10:00)
[2018-04-05] MEDS: Meropenem 250 MG in NA CHLORIDE 0.9% 100 ML IV SCH ×2 (12:03→22:59)
[2018-04-05] MEDS: NEPRO 1,000 ML BOT FT SCH (14:17)
[2018-04-05] MEDS: POTASS/SODIUM PHOSPHATE 1 PKT POWD.PACK FT SCH ×2 (15:54→22:59)
--- NOTE | 2018-04-05 19:28 | PN ---
The patient had an episode of hypertension, not corrected by IV fluids. The family was present in e room and they had discussion among themselves and decided to put the patient on hospice. In view o f poor prognosis as well as multiple medical issues and his mental status, I do not have any problem carrying their request. [facility] has been selected by the family. The patient will be put on hospice. M eanwhile, supportive measures will be continued until hospice takes over the care. DAVID/ALISON Voice ID: [id number] Report ID: [id number]
--- NOTE | 2018-04-06 00:02 | PN ---
Date of Progress Note: 04/05/2018 Chief Complaint: End-stage renal disease, fluid overload, dyspnea, respiratory failure, hypotension. Subjective: The patient developed hypotensive episode today. He is started on midodrine, received mannitol for blood pressure control. The patient is treated with IV albumin for blood pressure control. Review of Systems: The patient is encephalopathic, cannot provide review of systems. Physical Examination: Lungs: Crackles at bases. Heart: S1, S2. Abdomen: Soft, obese. Extremities: Edema present in upper extremities. There is facial edema. Vital signs: Blood pressure was in 90s, improved with treatment. Recent blood pressure is 125/57, heart rate 78, respiratory rate 18. Laboratory Data: Hemoglobin 8.5, WBC 19.1, platelet count is 227,000, magnesium 2.4. Sodium 141, potassium 3.9, chloride 105, CO2 of 25, BUN 63, creatinine 2.9, phosphorus 2.2, calcium is 8.7. Impression And Plan: 1. End-stage renal disease. Dialysis will be done tomorrow. The patient received dialysis yesterday. Continued to monitor electrolytes. Advanced ultrafiltration is needed to control fluid overload. The patient has severe dyspnea. Continue BiPAP. The patient will have midodrine to control hypotension and prevent intradialytic hypotension. 2. Failure to thrive. Continue nutrition with high protein intake. Monitor pre-albumin level. 3. Renal osteodystrophy, hypophosphatemia, replacement as needed. I spent total 36 min including 26 min to coordinate care plan. SHAY/ALISON Voice ID: [id number] Report ID: [id number]
[2018-04-06] MEDS: PIPER/TAZO/NS 2.25gm 2.25 GM/50 ML BAG IVPB SCH ×3 (00:09→17:00)
[2018-04-06] MEDS: INSULIN -REGULAR HUMAN 50 UNIT/0.5 ML ML SQ SCH ×4 (00:09→18:00)
[2018-04-06 05:24] LABS: Albumin 1.8 g/dL (3.4-5.0); Phosphorus 4.3 mg/dL (2.5-4.9); Potassium 3.9 mmol/L (3.5-5.1)
[2018-04-06] MEDS: IPRATROPIUM BROM 0.5MG/2.5ML NEB PRN (08:39)
[2018-04-06] MEDS: ALBUTEROL 2.5 MG/3 ML NEB SOL NEB PRN (08:39)
[2018-04-06] MEDS: levETIRAcetam 500 MG TAB FT SCH ×2 (09:00→22:49)
[2018-04-06] MEDS: Pantoprazole (granules) 40 MG/BLIST PACKET FT SCH (09:00)
[2018-04-06] MEDS: MIDODRINE HCL 5 MG TABLET FT SCH ×3 (09:00→22:50)
[2018-04-06] MEDS: POTASS/SODIUM PHOSPHATE 1 PKT POWD.PACK FT SCH ×2 (09:00→22:50)
[2018-04-06] MEDS: Meropenem 250 MG in NA CHLORIDE 0.9% 100 ML IV SCH (11:00)
[2018-04-06] MEDS: MANNITOL 25% 12.5 GM/50 ML VIAL IV PRN (11:45)
--- NOTE | 2018-04-06 11:48 | P.PN ---
Subjective Date of Service: 04/06/18 Chief Complaint: Respiratory failure Patient's condition is improving BiPAP has been discontinued saturation satisfactory nasal cannula oxygen Review of Systems is unable to be obtained Physical Examination - Vital Signs Temperature: 97.2 F Blood Pressure: 145/69 Pulse: 84 Respirations: 28 Pulse Ox (%): 93 - Physical Exam General: Unresponsive Respiratory: Clear to auscultation bilaterally Cardiovascular: Normal S1 S2 Assessment & Plan - Problems (Diagnosis) (1) Respiratory failure Onset Date: 03/30/18 Current Visit: Yes Status: Acute Plan: Patient's condition is improving continue with broad-spectrum antibiotics chest x-ray on the 10th that showed ARDS will repeat white count is still elevated patient is on Diflucan vancomycin and Zosyn high risk for fungal infection Qualifiers: Chronicity: acute on chronic
[2018-04-06] MEDS: ALBUMIN HUMAN 25% 50 ML IV SCH (11:55)
[2018-04-06] MEDS: EPOETIN ALFA 10,000 UNIT/ML VIAL IV SCH (14:15)
[2018-04-06] MEDS: NEPRO 1,000 ML BOT FT SCH (16:17)
--- NOTE | 2018-04-06 21:05 | RAD REPORT ---
EXAM DESCRIPTION: RAD - Chest Single View - 04/06/2018 8:01 pm CLINICAL HISTORY: Aspiration pneumonia, respiratory distress COMPARISON: April 03 TECHNIQUE: AP portable chest image was obtained 1948 hours . FINDINGS: Left base opacification is still present and has shown no significant improvement. Right u pper lobe airspace opacification is also present. The medial right base opacities have not progressed or improved. Relatively well aerated left upper lung field is stable. Heart size and vasculature are within normal range. No pneumothorax or enlarging pleural effusion. Double-lumen dialysis catheter i s in place. No gross bony abnormality seen. No acute aortic findings suspected. IMPRESSION: Extensive bilateral lung base opacification most pronounced in the left base. Findings are not substantially different from April 03.
[2018-04-07] MEDS: FLUCONAZOLE 400 MG IVPB 400 MG/200 ML BAG IV SCH (01:15)
[2018-04-07] MEDS: PIPER/TAZO/NS 2.25gm 2.25 GM/50 ML BAG IVPB SCH ×3 (01:16→17:46)
[2018-04-07] MEDS: Meropenem 250 MG in NA CHLORIDE 0.9% 100 ML IV SCH ×3 (01:16→22:11)
--- NOTE | 2018-04-07 02:28 | PN ---
Date of Progress Note: 04/06/2018 Chief Complaint: End-stage renal disease, fluid overload, interstitial pulmonary edema and pneumonia. Subjective: The patient is undergoing treatment with dialysis. The patient developed severe hypotension and was started on midodrine and received IV albumin for blood pressure support. Blood pressure stabilized. The patient was treated with BiPAP for respiratory failure. Review of Systems: Unobtainable. The patient is encephalopathic, cannot provide review of systems. Physical Examination: Lungs: Crackles bilaterally. Heart: S1 and S2. Abdomen: Soft and benign. Extremities: Status post amputation, generalized edema, anasarca. Laboratory Data: Sodium 141, potassium 3.9, chloride 105, CO2 25, BUN 63, creatinine 2.9, phosphorus 2.2, calcium 8.7. Impression And Plan: 1. End-stage renal disease. Dialysis today with ultrafiltration was ordered. Monitor blood pressure closely and advance ultrafiltration to control fluid overload. 2. Respiratory failure. The patient was on BiPAP. The patient developed pulmonary edema and pneumonia. Continue Zosyn and vancomycin. Monitor vancomycin trough level. 3. Failure to thrive. The patient will continue nutrition with high protein intake. Monitor prealbumin level. 4. Renal osteodystrophy. Hypophosphatemia replacement as needed. The patient was taken off binders. I spent total 36 min including 26 min to coordinate care plan. SHAY/ALISON Voice ID: [id number] Report ID: [id number] JACK
[2018-04-07] MEDS: INSULIN -REGULAR HUMAN 50 UNIT/0.5 ML ML SQ SCH ×4 (06:20→18:00)
[2018-04-07] MEDS: Pantoprazole (granules) 40 MG/BLIST PACKET FT SCH (09:37)
[2018-04-07] MEDS: POTASS/SODIUM PHOSPHATE 1 PKT POWD.PACK FT SCH ×2 (09:37→21:23)
[2018-04-07] MEDS: levETIRAcetam 500 MG TAB FT SCH ×2 (09:37→21:23)
[2018-04-07] MEDS: MIDODRINE HCL 5 MG TABLET FT SCH ×3 (09:38→21:23)
--- NOTE | 2018-04-07 22:17 | PN ---
The patient looks slightly better. He is off BiPAP. However, the patient's family is not sure where to go from here. She would like to have more information regarding his future dialysis plan. A esteban ting is arranged for tomorrow between the family and Dr. Zhu, who is the mine expert on the doug e, at which time, it will be decided whether the patient would be transferred to another facility or current management will be continued. DAVID/ALISON Voice ID: [id number] Report ID: [id number]
[2018-04-08] MEDS: INSULIN -REGULAR HUMAN 50 UNIT/0.5 ML ML SQ SCH ×5 (01:05→23:45)
[2018-04-08] MEDS: PIPER/TAZO/NS 2.25gm 2.25 GM/50 ML BAG IVPB SCH ×3 (01:16→17:51)
--- NOTE | 2018-04-08 03:05 | PN ---
Date of Progress Note: 04/07/2018 Subjective: This patient was admitted with respiratory failure, pneumonia, aspiration. The patient developed over volume with septic shock. The patient was dialyzed yesterday. We could not remove mu ch fluid because of low blood pressure. Today blood pressure more stabilized. Physical Examination: Vital Signs: Blood pressure 149/68, pulse of 77. Chest: Crackles at bilateral base. Heart: S1, S2. Regular. Abdomen: Soft, nontender. Extremities: Bilateral amputee. Laboratory Data: WBC 19.1, H and H 8.5/26.6, platelet 227. Sodium 142, potassium 3.9, bicarb 25, BUN 82, creatinine 3.7, calcium 8.6, phos 4.3. Medications: Current medications the patient on its include 1.Fluconazole. 2.Meropenem. 3.Zosyn. 4.Vancomycin. 5.Breathing treatment. 6.Midodrine 10 t.i.d. 7.Epogen. 8.Keppra. 9.Nepro. Assessment And Plan: 1.End-stage renal disease, over volume. I am going to go ahead and arrange for the dialysis tomorro w, try to challenge again. 2.Hypertension. Currently hypotension. Continue Epogen. Continue midodrine. We will dialyze the patient on sodium module, and we will follow up the patient. 3.Sepsis aspiration pneumonia. Follow up with the primary. 4.Respiratory failure. Follow up with Pulmonary. The patient overall poor prognosis. Family not a t bedside to discuss other option. Possibly family is going to place the patient on hospice for followup. JENNIFER Voice ID: [id number] Report ID: [id number]
[2018-04-08] MEDS: levETIRAcetam 500 MG TAB FT SCH ×2 (09:17→20:38)
[2018-04-08] MEDS: Pantoprazole (granules) 40 MG/BLIST PACKET FT SCH (09:17)
[2018-04-08] MEDS: POTASS/SODIUM PHOSPHATE 1 PKT POWD.PACK FT SCH ×2 (09:18→20:38)
[2018-04-08] MEDS: MIDODRINE HCL 5 MG TABLET FT SCH ×3 (09:18→20:38)
[2018-04-08] MEDS: MANNITOL 25% 12.5 GM/50 ML VIAL IV PRN (11:11)
[2018-04-08] MEDS: ALBUMIN HUMAN 25% 50 ML IV SCH (11:12)
[2018-04-08] MEDS: EPOETIN ALFA 10,000 UNIT/ML VIAL IV SCH (13:30)
[2018-04-08] MEDS: Meropenem 250 MG in NA CHLORIDE 0.9% 100 ML IV SCH ×2 (14:22→23:49)
[2018-04-08] MEDS: VANCOMYCIN 500 MG in NA CHLORIDE 0.9% 100 ML IVPB SCH (19:40)
[2018-04-08] MEDS: FLUCONAZOLE 400 MG IVPB 400 MG/200 ML BAG IV SCH (20:38)
[2018-04-09] MEDS: PIPER/TAZO/NS 2.25gm 2.25 GM/50 ML BAG IVPB SCH ×2 (00:01→08:49)
[2018-04-09] MEDS: NEPRO 1,000 ML BOT FT SCH (04:33)
--- NOTE | 2018-04-09 05:14 | PN ---
Addendum: I had long discussion with the family in the presence of the and the lpifio-it-vvf an d family friend regarding the prognosis of the patient and the option of treatment including hospice care or long acute care as the patient is going to need antibiotic. I explained risks, benefits, alt ernatives, and the need for long-term antibiotic. According on his lifestyle and overall poor progno sis for the patient, I proposed all options of treatment include transfer to another long acute care and option of dialysis after that including next stage and explained to her the need for further lamine tment including option of hospice. Family still not decided. They are going to think about hospice or long acute care. Case discussed with the family, agreed; discussed with Dr. Marin, discussed with nursing staff in the presence of the charge nurse, agreed. Time spent 65 minutes. JENNIFER Voice ID: [id number] Report ID: [id number]
--- NOTE | 2018-04-09 05:14 | PN ---
Date of Progress Note: 04/08/2018 Subjective: No event. Blood pressure responds very well to midodrine. Physical Examination: Vital Signs: When I saw the patient, blood pressure 168/82, pulse of 88. Chest: Crackles bilateral. Heart: S1 and S2, regular. Abdomen: Soft and nontender. PEG tube. Extremities: Bilateral above-knee amputation. Laboratory Data: WBC 19.1, H and H 8.5/26.6, platelets 227. Sodium 142, potassium 3.9, bicarb 25, B UN 82, creatinine 3.7, calcium 8.6, phos 4.3. Assessment And Plan: 1.End-stage renal disease, still on the wet side. We will continue dialysis. We will challenge the patient. 2.Hypertension. Currently hypotensive. Continue midodrine. 3.Pneumonia, bacterial/fungal/aspiration. Continue antibiotic. Follow up with Pulmonary and ID. 4.Respiratory failure. We will follow up with Pulmonary. Continue current treatment. LUMA/ALISON Voice ID: [id number] Report ID: [id number]
[2018-04-09 06:12] LABS: Albumin 2.2 g/dL (3.4-5.0); Phosphorus 5.5 mg/dL (2.5-4.9); Potassium 4.5 mmol/L (3.5-5.1)
[2018-04-09] MEDS: INSULIN -REGULAR HUMAN 50 UNIT/0.5 ML ML SQ SCH ×2 (06:39→12:29)
[2018-04-09] MEDS: levETIRAcetam 500 MG TAB FT SCH (09:31)
[2018-04-09] MEDS: MIDODRINE HCL 5 MG TABLET FT SCH (09:31)
[2018-04-09] MEDS: POTASS/SODIUM PHOSPHATE 1 PKT POWD.PACK FT SCH (09:32)
[2018-04-09] MEDS: Pantoprazole (granules) 40 MG/BLIST PACKET FT SCH (09:43)
[2018-04-09] MEDS: Meropenem 250 MG in NA CHLORIDE 0.9% 100 ML IV SCH (09:44)
[2018-04-09 12:07] VITALS: BP 167/76; TEMP 98.4
[2018-04-09 12:59] VITALS: O2SAT 98
--- NOTE | 2018-04-09 15:14 | PN ---
Date of Progress Note: 04/09/2018 Chief Complaint: End-stage renal disease, on dialysis. Subjective: The patient is undergoing treatment with dialysis 3 times per week. He is dialysis depe ndent. He was found to have fluid overload and required additional dialysis procedures with ultrafil tration. Family is considering a hospice care at this point, but the patient has not made a decision . Review of Systems: Unobtainable, the patient is encephalopathic and has dementia and is nonverbal. Physical Examination: Lungs: Few crackles at bases. Heart: S1 and S2. Abdomen: Soft, benign. Extremities: Status post amputation. Impression And Plan: 1.End-stage renal disease. The patient will require dialysis, pending status of hospice at this poi nt. Electrolytes today are stable. Sodium is 141, potassium 4.5, chloride 107, CO2 of 24, BUN is 39 , creatinine 2.6, calcium 8.2, phosphorus 5.5, albumin 2.2. 2.History of pneumonia. The patient was treated with antibiotics. Continue treatment. SHAY/ALISON Voice ID: [id number] Report ID: [id number]
== END 2018-04-09 14:39 | DRG 177 ==
LOC: ER 08:59 → ERHOLD 11:26 → 4TH 13:36
PROVIDERS: ADMIT Internal Medicine; ATTEND Internal Medicine
PROC: 5A09557 Assistance with Respiratory Ventilation, Greater than 96 Consecutive Hours, Continuous Positive Airway Pressure (ICD-10-PCS; principal; 2018-03-27)
PROC: 5A1D70Z Performance of Urinary Filtration, Intermittent, Less than 6 Hours Per Day (ICD-10-PCS; 2018-03-27)
DX: J69.0 Pneumonitis due to inhalation of food and vomit (principal); J96.22 Acute and chronic respiratory failure with hypercapnia; N18.6 End stage renal disease; I50.31 Acute diastolic (congestive) heart failure; A41.9 Sepsis, unspecified organism; R65.21 Severe sepsis with septic shock; R40.20 Unspecified coma; I13.2 Hypertensive heart and chronic kidney disease with heart failure and with stage 5 chronic kidney disease, or end stage renal disease; N25.81 Secondary hyperparathyroidism of renal origin; J44.1 Chronic obstructive pulmonary disease with (acute) exacerbation; J80 Acute respiratory distress syndrome; E11.9 Type 2 diabetes mellitus without complications; Z79.4 Long term (current) use of insulin; E11.22 Type 2 diabetes mellitus with diabetic chronic kidney disease; Z99.2 Dependence on renal dialysis; Z93.1 Gastrostomy status; Z89.612 Acquired absence of left leg above knee; Z89.611 Acquired absence of right leg above knee; Z66 Do not resuscitate; Z86.73 Personal history of transient ischemic attack (TIA), and cerebral infarction without residual deficits; E78.5 Hyperlipidemia, unspecified; J44.9 Chronic obstructive pulmonary disease, unspecified; I95.3 Hypotension of hemodialysis; N25.0 Renal osteodystrophy; R09.02 Hypoxemia; E83.39 Other disorders of phosphorus metabolism; R62.7 Adult failure to thrive
CPT/HCPCS: 36415; 71045; 80048; 80069; 80076; 80202; 82805; 82962; 83605; 83615; 83735; 83880; 84145; 85025; 85610; 87040; 87493; 90935; 93005; 93306; 94640; 94660; 94760; 96374; 96375; 99285; J0696; J1450; J1630; J1940; J2150; J2185; J2920; P9047; Q4081

== ENCOUNTER 2018-07-13 18:54 | Inpatient (IN) | payer BC, OTHER ==
--- NOTE | 2018-07-13 20:24 | RAD REPORT ---
EXAM DESCRIPTION: RAD - Chest Single View - 07/13/2018 8:14 pm CLINICAL HISTORY: SOB Chest pain. COMPARISON: Chest Single View dated 04/06/2018; Chest Single View dated 04/03/2018; Chest Single View dated 04/01/2018; Chest Single View dated 03/30/2018 FINDINGS: Portable technique limits examination quality. Moderate bilateral pulmonary opacities are noted likely representing pulmonary edema. The heart is mi ldly to moderately enlarged in size. Left-sided venous catheter tip in right atrium. No displaced fra ctures. IMPRESSION: Moderate CHF versus volume overload pattern.
[2018-07-13 20:55] LABS: Absolute Lymphocytes (CBC) 1.3 K/uL (0.7-4.9); Absolute Monocytes 1.2 K/uL (0.1-1.3); Absolute Neutrophil 5.8 K/uL (1.8-8.0); Basophils % 0.4 % (0-1.3); Eosinophils % 2.9 % (0-4.4); Hematocrit 33.9 % (39.6-49.0); Lymphocytes % 15.2 % (15.3-44.8); MPV 9.7 fL (7.6-11.3); RBC Red Blood Cell Count 3.62 M/uL (4.33-5.43)
[2018-07-13 21:00] LABS: ALT/SGPT 37 U/L (12-78); AST/SGOT 24 U/L (15-37); Albumin 3.3 g/dL (3.4-5.0); Alkaline Phosphatase 113 U/L (45-117); BUN Blood Urea Nitrogen 63 mg/dL (7-18); Bicarbonate 31 mmol/L (21-32); Bilirubin Direct 0.1 mg/dL (0-0.2); Bilirubin Total 0.4 mg/dL (0.2-1.0); Glucose Level 113 mg/dL (74-106); Magnesium 2.7 mg/dL (1.8-2.4); NT PRO-BNP 14681 pg/mL (<450); Potassium 4.5 mmol/L (3.5-5.1); Sodium Level 133 mmol/L (136-145); Troponin (Emerg Dept Use Only) < 0.02 ng/mL (0.0-0.045)
[2018-07-13 21:09] LABS: Protime INR 1.13
--- NOTE | 2018-07-13 22:03 | EDPHYS ---
Physician Documentation [facility] Name: Kush Robles Age: 73 yrs Sex: Male : 1945 Arrival Date: 07/13/2018 Time: 19:05 Bed 4 Private MD: ED Physician Rory Clay HPI: 07/13 23:12 This 73 yrs old Black Male presents to ER via EMS with complaints of Shortness Of tw4 Breath. 23:12 The patient has shortness of breath at rest. Duration: The symptoms are continuous, and tw4 are unchanged since they started. The patient's shortness of breath has no apparent modifying factors. Associated signs and symptoms: The patient has no apparent associated signs or symptoms. Severity of symptoms: At their worst the symptoms were moderate in the emergency department the symptoms are unchanged. The patient has not experienced similar symptoms in the past. Historical: - Allergies: : No Known Allergies; ch - Home Meds: :23 albuterol sulfate 2.5 mg /3 mL (0.083 %) Inhl nebu [Active]; alprazolam 0.25 mg Oral ch tab BID for Anxiety [Active]; amitriptyline 25 mg Oral tab 1 tab once daily [Active]; atorvastatin 40 mg Oral tab 1 tab once daily [Active]; carvedilol 25 mg Oral tab 1 tab 2 times per day [Active]; clonidine HCl 0.2 mg Oral tab 2 times per day [Active]; furosemide 40 mg Oral tab once daily [Active]; guaifenesin-codeine 100-10 mg/5ml 2 2 teaspoons twice a day [Active]; Humulin N Pen 100 unit/mL (3 mL) Sub-Q inpn [Active]; levetiracetam 500 mg Oral tab 2 times per day [Active]; lisinopril 5 mg Oral tab 1 tab twice a day [Active]; Nepro Carb Steady Oral [Active]; Norvasc 10 mg Oral tab 1 tab once daily [Active]; omeprazole 20 mg Oral cpDR once daily [Active]; amlodipine 10 mg tab 1 tab once daily [Active]; atenolol 25 mg Oral tab 1 tab 2 times per day [Active]; midodrine 10 mg oral tab 1 tab before dialysis [Active]; - PMHx: 19:23 CVA; Diabetes - IDDM; Dialysis; ESRD; h/o coe to extensive area, skin grafts; High ch Cholesterol; Hypertension; PEG tube; trach; sepsis; Pneumonia; UTI; dialysis tues thurs sat; contractures; non verbal; - PSHx: 19:23 trach tube and removal; PEG tube; Santhosh AKA; ch - Immunization history:: Adult Immunizations up to date. - Social history:: Smoking status: Patient/guardian denies using tobacco. - Ebola Screening: : Patient negative for fever greater than or equal to 101.5 degrees Fahrenheit, and additional compatible Ebola Virus Disease symptoms Patient denies exposure to infectious person Patient denies travel to an Ebola-affected area in the 21 days before illness onset No symptoms or risks identified at this time. ROS: 23:12 Abdomen/GI: Negative for abdominal pain, nausea, vomiting, diarrhea, and constipation, tw4 Back: Negative for injury and pain, MS/Extremity: Negative for injury and deformity, Skin: Negative for injury, rash, and discoloration, Neuro: Negative for headache, weakness, numbness, tingling, and seizure. 23:12 Respiratory: Positive for shortness of breath. Exam: 23:12 Constitutional: This is a well developed, well nourished patient who is awake, alert, tw4 and in no acute distress. Head/Face: Normocephalic, atraumatic. Chest/axilla: Normal chest wall appearance and motion. Nontender with no deformity. No lesions are appreciated. Cardiovascular: Regular rate and rhythm with a normal S1 and S2. No gallops, murmurs, or rubs. Normal PMI, no JVD. No pulse deficits. 23:12 MS/ Extremity: Pulses equal, no cyanosis. Neurovascular intact. Full, normal range of motion. Neuro: Awake and alert, GCS 15, oriented to person, place, time, and situation. Cranial nerves II-XII grossly intact. Motor strength 5/5 in all extremities. Sensory grossly intact. Cerebellar exam normal. Normal gait. 23:12 Respiratory: the patient does not display signs of respiratory distress, Respirations: normal, Breath sounds: decreased breath sounds, are located in both bases, are heard in the right middle lobe, left lower lobe, right lower lobe, left posterior lower lobe and right posterior middle lobe. Vital Signs: 19:15 Pulse Ox 92% on R/A; lp1 19:23 BP 155 / 68; Pulse 70; Resp 24; Temp 98.3(R); Pulse Ox 98% on 4 lpm NC; ch 20:30 BP 170 / 80; Pulse 69; Resp 23; Pulse Ox 99% on NC; rr5 21:26 BP 156 / 73; Pulse 70; Resp 21; Pulse Ox 98% on 2 lpm NC; rr5 23:02 BP 155 / 72; Pulse 70; Resp 20; Pulse Ox 98% on 2 lpm NC; rr5 23:30 BP 162 / 74; Pulse 70; Resp 20; Pulse Ox 98% on 2 lpm NC; rr5 19:23 ems states pt was on 2 L at home as needed, and was at 92% ch MDM: 19:10 Patient medically screened. tw4 23:12 Differential diagnosis: CHF exacerbation, Chronic Obstructive Pulmonary Disease tw4 pneumonia, pulmonary edema, Pulmonary Embolism reactive airway disease. Data reviewed: vital signs, nurses notes. Counseling: I had a detailed discussion with the patient and/or guardian regarding: the historical points, exam findings, and any diagnostic results supporting the discharge/admit diagnosis, lab results, radiology results. Physician consultation: Dimitri Marin MD regarding admission, patient's condition, need to evaluate the patient as soon as possible, and will see patient in inpatient room. 07/13 19:56 Order name: Basic Metabolic Panel tw4 07/13 19:56 Order name: CBC with Diff tw4 07/13 19:56 Order name: LFT's tw4 07/13 19:56 Order name: Magnesium tw4 07/13 19:56 Order name: NT PRO-BNP tw4 07/13 19:56 Order name: PT-INR tw4 07/13 19:56 Order name: Troponin (emerg Dept Use Only) tw4 07/13 21:23 Order name: CBC with Automated Diff EDMS 07/13 21:24 Order name: Basic Metabolic Panel EDNY 07/13 21:24 Order name: Liver (Hepatic) Function EDMS 07/13 21:24 Order name: Troponin (Emerg Dept Use Only) EDMS 07/13 21:24 Order name: NT PRO-BNP EDNY 07/13 21:24 Order name: Magnesium EDNY 07/13 21:25 Order name: Protime (+INR) EDNY 07/13 19:56 Order name: XRAY Chest (1 view) tw4 07/13 19:56 Order name: EKG; Complete Time: 19:57 4 07/13 19:56 Order name: Cardiac monitoring; Complete Time: 20:02 4 07/13 19:56 Order name: EKG - Nurse/Tech; Complete Time: 20:18 4 07/13 19:56 Order name: IV Saline Lock; Complete Time: 20:36 4 07/13 19:56 Order name: Labs collected and sent; Complete Time: 20:36 4 07/13 19:56 Order name: O2 Per Protocol; Complete Time: 20:02 4 07/13 19:56 Order name: O2 Sat Monitoring; Complete Time: 20:02 07/13 20:25 Order name: RAD; Complete Time: 21:15 EDMS EC:11 Rate is 69 beats/min. Rhythm is regular. QRS [place] is Normal. NM interval is normal. QRS tw4 interval is normal. QT interval is normal. No Q waves. T waves are Flattened in leads V3, V5, V6. No ST changes noted. Clinical impression: Abnormal EKG without significant change. Interpreted by me. Reviewed by me. Administered Medications: No medications were administered Disposition: 07/13/18 22:02 Hospitalization ordered by Dimitri Marin for Inpatient Admission. Preliminary diagnosis are Acute pulmonary edema, Chronic kidney disease, stage 5, Dependence on renal dialysis. - Bed requested for Telemetry/MedSurg (Inpatient). - Status is Inpatient Admission. rr5 - Condition is Stable. - Problem is an ongoing problem. - Symptoms are unchanged. UTI on Admission? No Signatures: Dispatcher [employer] EDNY Latisha Cline, RN Rory Mitchell ch, MD MD tw4 Kush Sandy RN RN rr5 Charlene Joiner ar5 Corrections: (The following items were deleted from the chart) 23:02 22:02 Hospitalization Ordered by Dimitri Marin MD for Inpatient Admission. Preliminary ar5 diagnosis is Acute pulmonary edema; Chronic kidney disease, stage 5; Dependence on renal dialysis. Bed requested for Telemetry/MedSurg (Inpatient). Status is Inpatient Admission. Condition is Stable. Problem is an ongoing problem. Symptoms are unchanged. UTI on Admission? No. tw4 23:41 23:02 07/13/2018 22:02 Hospitalization Ordered by Dimitri Marin MD for Inpatient rr5 Admission. Preliminary diagnosis is Acute pulmonary edema; Chronic kidney disease, stage 5; Dependence on renal dialysis. Bed requested for Telemetry/MedSurg (Inpatient). Status is Inpatient Admission. Condition is Stable. Problem is an ongoing problem. Symptoms are unchanged. UTI on Admission? No. ar5
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
[2018-07-13] MEDS ORDERED: ACETAMINOPHEN 500 MG TAB PO PRN (22:46)
[2018-07-13] MEDS: ALBUTEROL 2.5 MG/3 ML NEB SOL NEB SCH (22:46)
[2018-07-14] MEDS: IPRATROPIUM BROM 0.5MG/2.5ML NEB SCH ×6 (00:29→20:42)
[2018-07-14] MEDS: ALBUTEROL 2.5 MG/3 ML NEB SOL NEB SCH ×6 (00:29→20:42)
[2018-07-14] MEDS: NEPRO 1,000 ML BOT FT SCH (02:11)
[2018-07-14 03:49] LABS: Absolute Lymphocytes (CBC) 1.8 K/uL (0.7-4.9); Absolute Monocytes 1.3 K/uL (0.1-1.3); Absolute Neutrophil 6.3 K/uL (1.8-8.0); Basophils % 0.5 % (0-1.3); Eosinophils % 2.7 % (0-4.4); Hematocrit 30.7 % (39.6-49.0); Lymphocytes % 18.5 % (15.3-44.8); MPV 10.5 fL (7.6-11.3); Monocytes % 13.8 % (3.3-12.3); RBC Red Blood Cell Count 3.34 M/uL (4.33-5.43)
[2018-07-14 03:57] LABS: Potassium 4.9 mmol/L (3.5-5.1)
[2018-07-14] MEDS ORDERED: MIDODRINE HCL 5 MG TABLET PO PRN (08:38)
[2018-07-14] MEDS ORDERED: ALPRAZOLAM 0.25 MG TABLET PO PRN (08:38)
[2018-07-14] MEDS ORDERED: ATENOLOL 25 MG TAB PO SCH (09:00)
[2018-07-14] MEDS ORDERED: AMLODIPINE 10 MG TAB PO SCH (09:00)
[2018-07-14] MEDS: ALBUMIN HUMAN 25% 50 ML IV SCH ×2 (11:27→12:00)
--- NOTE | 2018-07-14 20:32 | P.CNS ---
Date of Consult: 07/14/18 Reason for Consult: ESRD to resume HD and volume management Chief Complaint: SOB History of Present Illness: Pt is unable to provide Hx, Hx obtained from chart A 73-year-old gentleman with past medical history of hypertension, ESRD on HD via PC ,hypertension, and PVD S/p B/l AKA. Pt was admitted for SOB CXR with pulmonary edema No mention diarrhea, no fever, no chills. Allergies No Known Allergies Allergy (Verified 03/18/18 01:25) Home Medications: ALPRAZolam [Xanax] 0.25 mg PO Q6HP PRN 07/14/18 Albuterol Sulfate [Albuterol Sulfate 0.083% Neb Soln] 2.5 mg IH BID 07/14/18 Amlodipine Besylate 10 mg PO DAILY 07/14/18 Atenolol [Tenormin] 25 mg PO Q12HR 07/14/18 Midodrine HCl 10 mg PO 1X PRN 07/14/18 - Past Medical/Surgical History Diabetic: Yes -: stroke 2009 -: DM -: HTN -: extensive coe 2015 -: ESRD with HD T,, fri -: ESRD -: bilateral AKA -: multiple skin grafts -: peg tube -: HD Access -: Tracheostomy - Family History Mother Medical History: Hypertension Sister Medical History: Diabetes - Social History Smoking Status: Unknown if ever smoked Alcohol use: No CD- Drugs: No Caffeine use: No Place of Residence: Home Physical Examination Temp Pulse Resp BP Pulse Ox 98.1 F 70 18 154/70 H 98 07/14/18 16:00 07/14/18 16:00 07/14/18 16:00 07/14/18 16:00 07/14/18 16:00 General: Alert (Not oriented ) Neck: Supple, Without JVD or thyroid abnormality Respiratory: Normal air movement, Crackles/rales Cardiovascular: No edema Gastrointestinal: Normal bowel sounds Laboratory Data (last 24 hrs) 07/13/18 20:30: PT 13.4 H, INR 1.13 07/13/18 20:30: WBC 8.6, Hgb 11.1 L, Hct 33.9 L, Plt Count 185 07/13/18 20:30: Sodium 133 L, Potassium 4.5, BUN 63 H, Creatinine 3.70 H, Glucose 113 H, Magnesium 2.7 H, Total Bilirubin 0.4, AST 24, ALT 37, Alkaline Phosphatase 113 - Problems (1) Dyspnea Onset Date: 07/08/17 Current Visit: No Status: Acute (2) ESRD (end stage renal disease) Onset Date: 03/18/18 Current Visit: No Status: Chronic (3) Hypoxia Onset Date: 03/09/18 Current Visit: No Status: Acute (4) Pulmonary edema Onset Date: 03/18/18 Current Visit: No Status: Acute Conclusions/Impression: Pt is unable to provide Hx, Hx obtained from chart A 73-year-old gentleman with past medical history of hypertension, ESRD on HD via PC ,hypertension, and PVD S/p B/l AKA. Pt was admitted for SOB CXR with pulmonary edema No mention diarrhea, no fever, no chills. ESRD will do HD today and tomorrow will dc BP meds as Bp dropped during HD today HD tomorrow Cont midodrine Pul edmea Will do HD again tomorrow will rpt CXR tomorrow Anemia LUKASZ
[2018-07-15] MEDS: IPRATROPIUM BROM 0.5MG/2.5ML NEB SCH ×6 (00:05→20:37)
[2018-07-15] MEDS: ALBUTEROL 2.5 MG/3 ML NEB SOL NEB SCH ×6 (00:05→20:36)
--- NOTE | 2018-07-15 02:55 | HP ---
Date of Admission: 07/13/2018 Chief Complaint: Pulmonary edema. History Of Present Illness: This patient, who is on chronic dialysis, was brought to the emergency r oom because of shortness of breath. He had evaluation done in the emergency room which showed volume overload with pulmonary edema. The patient is admitted. The patient cannot communicate on account of his mental and physical status. However, he is known to me for several years. He has end-stage r enal disease, on dialysis. He has history of hypertension, borderline diabetes, multiple episodes of aspiration pneumonia, and anxiety. For list of medicines, please refer to the chart. Past Surgical History: Positive for PEG tube, bilateral leg amputation, tracheotomy, and removal of tracheotomy. Physical Examination: General: Revealed a 73-year-old bedridden black male. Vital Signs: Afebrile. HEENT: Otherwise negative except for old scar from tracheotomy. Chest: Bilateral crackles. Heart: Regular. Abdomen: PEG tube functioning well. Extremities: Evidence of leg amputation noted. Laboratory: White count normal. Chem profile: BUN 63, creatinine 3.7, BNP 14,000. Chest x-ray, pulmonary edema. Assessment: 1.Volume overload with pulmonary edema. 2.On chronic dialysis for chronic renal failure. 3.Hypertension. 4.Bilateral leg amputation. 5.PEG tube status. Plan: The patient had hemodialysis done today. We took out extra fluid. He is breathing much joaquin r. The patient will be re-evaluated in a.m. DAVID/ALISON Voice ID: [id number]
[2018-07-15] MEDS: NEPRO 1,000 ML BOT FT SCH (03:21)
--- NOTE | 2018-07-15 05:55 | EKG ---
Test Date: 2018-07-13 Test Time: 20:14:47 Statistical Machine Mechanic: CATE MEASUREMENT RESULTS: Intervals: Rate: 69 SD: 230 QRSD: 88 QT: 414 QTc: 443 [place]: P: 51 SD: 230 QRS: 78 T: -54 INTERPRETIVE STATEMENTS: Sinus rhythm with first degree AV block Possible Anterior infarct, age undetermined Non specific T abnormality Abnormal ECG Compared to ECG 03/27/2018 09:32:57 Myocardial infarct finding still present SD interval has increased Electronically Signed On 07-15-18 05:54:34 SLURRY BLENDER by Jose Martinez
--- NOTE | 2018-07-15 08:19 | RAD REPORT ---
EXAM DESCRIPTION: [facility] Single View07/15/2018 6:42 am CLINICAL HISTORY: Shortness of breath COMPARISON: July 13 FINDINGS: Mild improvement in bilateral pulmonary opacities. No other change noted IMPRESSION: Mild improvement in pulmonary edema which is [id number] in severity
[2018-07-15] MEDS ORDERED: EPOETIN ALFA 10,000 UNIT/ML VIAL SQ SCH (10:00)
[2018-07-15] MEDS: ALBUMIN HUMAN 25% 50 ML IV SCH (13:37)
[2018-07-15] MEDS: EPOETIN ALFA 4000 UNIT/1 ML VIAL SQ SCH (14:09)
[2018-07-15] MEDS: PROMOD 30 ML DOSE FT SCH (16:45)
[2018-07-16] MEDS: ALBUTEROL 2.5 MG/3 ML NEB SOL NEB SCH ×7 (00:33→23:40)
[2018-07-16] MEDS: IPRATROPIUM BROM 0.5MG/2.5ML NEB SCH ×7 (00:33→23:40)
--- NOTE | 2018-07-16 01:35 | PN ---
The patient had second dialysis today. They took out about 2 L of fluid. The patient's lungs sound better. He is afebrile. He will be watched overnight and will talk to maintenance electrician to see whether a ny additional dialysis is necessary. DAVID/ALISON Voice ID: [id number] Report ID: [id number]
[2018-07-16] MEDS: NEPRO 1,000 ML BOT FT SCH (08:13)
[2018-07-16] MEDS: PROMOD 30 ML DOSE FT SCH (09:42)
--- NOTE | 2018-07-16 13:16 | PN ---
The patient's blood sugars are reasonable and his BUN and creatinine have not been available. The ted cruz, however, has less crackles in bases on examination. DAVID/ALISON Voice ID: [id number] Report ID: [id number]
[2018-07-16 14:08] LABS: Potassium 3.6 mmol/L (3.5-5.1)
--- NOTE | 2018-07-16 21:26 | P.PN ---
Subjective Date of Service: 07/16/18 Chief Complaint: SOB no new complaints breathing normally HD tomorrow, will recommend to discharge the pt and arrange at home otherwise will dialyze in the hospital Physical Examination - Vital Signs Temperature: 98 F Blood Pressure: 152/70 Pulse: 69 Respirations: 18 Pulse Ox (%): 99 - Physical Exam General: Alert HEENT: Atraumatic Respiratory: Crackles/rales Cardiovascular: No edema, Regular rate/rhythm, Normal S1 S2, No rubs, No murmurs Gastrointestinal: Normal bowel sounds Assessment And Plan - Current Problems (Diagnosis) (1) Dyspnea Onset Date: 07/08/17 Current Visit: No Status: Acute (2) ESRD (end stage renal disease) Onset Date: 03/18/18 Current Visit: No Status: Chronic (3) Hypoxia Onset Date: 03/09/18 Current Visit: No Status: Acute (4) Pulmonary edema Onset Date: 03/18/18 Current Visit: No Status: Acute - Plan Pt is unable to provide Hx, Hx obtained from chart A 73-year-old gentleman with past medical history of hypertension, ESRD on HD via PC ,hypertension, and PVD S/p B/l AKA. Pt was admitted for SOB CXR with pulmonary edema No mention diarrhea, no fever, no chills. ESRD will do HD tomorrow Cont to hold BP meds Cont midodrine Pul edmea improved Ot not in distress Anemia LUKASZ
[2018-07-17] MEDS: IPRATROPIUM BROM 0.5MG/2.5ML NEB SCH ×5 (03:30→20:17)
[2018-07-17] MEDS: ALBUTEROL 2.5 MG/3 ML NEB SOL NEB SCH ×5 (03:30→20:17)
[2018-07-17] MEDS: NEPRO 1,000 ML BOT FT SCH (05:10)
[2018-07-17] MEDS: PROMOD 30 ML DOSE FT SCH (09:05)
--- NOTE | 2018-07-17 11:19 | P.PN ---
Subjective Date of Service: 07/17/18 Chief Complaint: SOB Non communicative breathing normally HD today , can resume HD with home hemo otherwise will do inpatient Cont to hold BP meds on discharge , BP is acceptable now need to follow up with nephrology clinic to monitor volume status and adjust dialysis prescription Physical Examination - Vital Signs Temperature: 97.7 F Blood Pressure: 148/76 Pulse: 80 Respirations: 16 Pulse Ox (%): 100 - Physical Exam General: Other (Non communicative ) Respiratory: Crackles/rales (Basla rales ) Cardiovascular: No edema, Regular rate/rhythm, Normal S1 S2, No rubs Gastrointestinal: Normal bowel sounds, No tenderness Assessment And Plan - Current Problems (Diagnosis) (1) Dyspnea Onset Date: 07/08/17 Current Visit: No Status: Acute (2) ESRD (end stage renal disease) Onset Date: 03/18/18 Current Visit: No Status: Chronic (3) Hypoxia Onset Date: 03/09/18 Current Visit: No Status: Acute (4) Pulmonary edema Onset Date: 03/18/18 Current Visit: No Status: Acute - Plan Pt is unable to provide Hx, Hx obtained from chart A 73-year-old gentleman with past medical history of hypertension, ESRD on HD via PC ,hypertension, and PVD S/p B/l AKA. Pt was admitted for SOB CXR with pulmonary edema No mention diarrhea, no fever, no chills. ESRD can be discharged from nephrology point of view HD today at home , and if cant arranged then will do while inpatient Cont to hold BP meds Cont midodrine need to follow with nephrology clinic to adjust HD prescription Pul edmea improved not in distress Anemia LUKASZ
--- NOTE | 2018-07-17 20:06 | PN ---
The patient is doing better. He does not have any crackles. He underwent dialysis. He will be obse rved overnight. If he does okay, he will be discharged in a.m. as per Nephrology recommendations. DAVID/ALISON Voice ID: [id number] Report ID: [id number]
[2018-07-17] MEDS: EPOETIN ALFA 4000 UNIT/1 ML VIAL SQ SCH (22:22)
[2018-07-17] MEDS: ALBUMIN HUMAN 25% 50 ML IV SCH (22:24)
[2018-07-18] MEDS: IPRATROPIUM BROM 0.5MG/2.5ML NEB SCH ×4 (00:09→12:00)
[2018-07-18] MEDS: ALBUTEROL 2.5 MG/3 ML NEB SOL NEB SCH ×4 (00:09→12:00)
[2018-07-18] MEDS: PROMOD 30 ML DOSE FT SCH (09:59)
[2018-07-18] MEDS ORDERED: IPRATROPIUM BROM 0.5MG/2.5ML NEB PRN (13:05)
[2018-07-18] MEDS ORDERED: ALBUTEROL 2.5 MG/3 ML NEB SOL NEB PRN (13:05)
--- NOTE | 2018-07-18 14:15 | P.PN ---
Subjective Date of Service: 07/18/18 Chief Complaint: SOB Non communicative breathing normally had Hd yesterday plan to discharge tomorrow , will dialyse tomorrow again as next scheduled treatment as an Op is on friday labs tomorrow Physical Examination - Vital Signs Temperature: 97.2 F Blood Pressure: 120/67 Pulse: 80 Respirations: 16 Pulse Ox (%): 100 - Physical Exam General: Other (non communicative ) Neck: Supple, Without JVD or thyroid abnormality Respiratory: Clear to auscultation bilaterally Cardiovascular: No edema, Regular rate/rhythm, Normal S1 S2, No rubs, No murmurs Gastrointestinal: Normal bowel sounds Assessment And Plan - Current Problems (Diagnosis) (1) Dyspnea Onset Date: 07/08/17 Current Visit: No Status: Acute (2) ESRD (end stage renal disease) Onset Date: 03/18/18 Current Visit: No Status: Chronic (3) Hypoxia Onset Date: 03/09/18 Current Visit: No Status: Acute (4) Pulmonary edema Onset Date: 03/18/18 Current Visit: No Status: Acute - Plan Pt is unable to provide Hx, Hx obtained from chart A 73-year-old gentleman with past medical history of hypertension, ESRD on HD via PC ,hypertension, and PVD S/p B/l AKA. Pt was admitted for SOB CXR with pulmonary edema No mention diarrhea, no fever, no chills. ESRD on home HD TTsat HD tomorrow as plan is to dischareg the pt and next scheduled treatment as OP will be on Friday Cont to hold BP meds Cont midodrine need to follow with nephrology clinic to adjust HD prescription Pul edmea improved not in distress Anemia LUKASZ
[2018-07-19] MEDS: NEPRO 1,000 ML BOT FT SCH (04:59)
[2018-07-19] MEDS: PROMOD 30 ML DOSE FT SCH (08:45)
--- NOTE | 2018-07-19 11:44 | P.PN ---
Subjective Date of Service: 07/19/18 Chief Complaint: SOB Non communicative breathing normally had Hd today can be discharged from nephrology point of view and resume HD TTsat at home Need fu with nephrology clinic to adjust prescription Physical Examination - Vital Signs Temperature: 97.0 F Blood Pressure: 122/63 Pulse: 72 Respirations: 16 Pulse Ox (%): 99 - Physical Exam General: Other (Non commmunicative ) Neck: Supple, Without JVD or thyroid abnormality Respiratory: Clear to auscultation bilaterally Cardiovascular: No edema, Regular rate/rhythm, Normal S1 S2 Gastrointestinal: Normal bowel sounds, Other (PEG tube ) Assessment And Plan - Current Problems (Diagnosis) (1) Dyspnea Onset Date: 07/08/17 Current Visit: No Status: Acute (2) ESRD (end stage renal disease) Onset Date: 03/18/18 Current Visit: No Status: Chronic (3) Hypoxia Onset Date: 03/09/18 Current Visit: No Status: Acute (4) Pulmonary edema Onset Date: 03/18/18 Current Visit: No Status: Acute - Plan Pt is unable to provide Hx, Hx obtained from chart A 73-year-old gentleman with past medical history of hypertension, ESRD on HD via PC ,hypertension, and PVD S/p B/l AKA., S/P pEG tube Pt was admitted for SOB CXR with pulmonary edema No mention diarrhea, no fever, no chills. ESRD on home HD TTsat HD today can be discharged and resume HD at home TTsat need to fu with nephrology clinic Cont to hold BP meds Cont midodrine need to follow with nephrology clinic to adjust HD prescription Pul edmea improved not in distress Anemia LUKASZ
[2018-07-19] MEDS: ALBUMIN HUMAN 25% 50 ML IV SCH ×2 (11:52→13:13)
[2018-07-19] MEDS: EPOETIN ALFA 4000 UNIT/1 ML VIAL SQ SCH (11:54)
[2018-07-19] MEDS: NA CHLORIDE 0.9% 250 ML IV PRN ×3 (15:52→20:10)
--- NOTE | 2018-07-19 16:49 | RAD REPORT ---
EXAM DESCRIPTION: RAD - Chest Single View - 07/19/2018 4:43 pm CLINICAL HISTORY: Possible aspiration Pneumonia Chest pain. COMPARISON: Chest Single View dated 07/15/2018; Chest Single View dated 07/13/2018; Chest Single Vie w dated 04/06/2018; Chest Single View dated 04/03/2018 FINDINGS: Portable technique limits examination quality. Ill-defined opacity is present in the medial right lung base and right upper lobe likely representing pneumonia/ aspiration. The heart is mildly to moderately prominent in size with left-sided venous ca theter in place, tip in the right atrium. No displaced fractures.
[2018-07-19] MEDS: CEFEPIME/SWI 1gm 1 GM/10 ML SYR IV SCH (18:10)
[2018-07-19] MEDS ORDERED: ONDANSETRON 4 MG/2 ML VIAL IV PRN (18:39)
--- NOTE | 2018-07-19 20:05 | PN ---
The patient had an episode of hypotension and aspiration following dialysis today. The patient is on non-rebreather. I spoke to the . She does not want any resuscitation, intubation, etc. The pa tiejl will have chest x-ray and I will start him on antibiotic and continue to follow him closely. DAVID/MODKacie Voice ID: [id number] Report ID: [id number]
[2018-07-19 21:11] LABS: Absolute Lymphocytes (CBC) 0.5 K/uL (0.7-4.9); Absolute Monocytes 0.5 K/uL (0.1-1.3); Absolute Neutrophil 1.8 K/uL (1.8-8.0); Basophils % 0.5 % (0-1.3); Eosinophils % 0.6 % (0-4.4); Hematocrit 37.2 % (39.6-49.0); Lymphocytes % 18.9 % (15.3-44.8); MPV 9.7 fL (7.6-11.3); Monocytes % 17.4 % (3.3-12.3)
[2018-07-19] MEDS ORDERED: NA CHLORIDE 0.9% 250 ML IV ONE ×2 (21:15→22:03)
[2018-07-19 21:32] LABS: Blood Morphology Comment NOT SEEN (NOT SEEN); Platelet Estimate ADEQ; Platelets, Giant 1/100 WBCS
[2018-07-19] MEDS ORDERED: NOREPINEPHRINE 4 MG in D5W 250 ML IV PRN (22:54)
[2018-07-19] MEDS ORDERED: VANCOMYCIN 1.5 GM in NA CHLORIDE 0.9% 500 ML IVPB ONE (23:00)
[2018-07-19] MEDS ORDERED: NOREPINEPHRINE 4 MG/4 ML VIAL ONE (23:09)
[2018-07-19] MEDS ORDERED: D5W 250 ML IV ONE (23:09)
[2018-07-20] MEDS ORDERED: NA CHLORIDE 0.9% 500 ML ONE (00:20)
[2018-07-20] MEDS ORDERED: VANCOMYCIN 1 GM/VIAL ONE (00:28)
[2018-07-20] MEDS ORDERED: VANCOMYCIN 500 MG/VIAL ONE (00:29)
[2018-07-20] MEDS: PANTOPRAZOLE 40MG TABLET PO SCH (06:30)
[2018-07-20] MEDS ORDERED: VANCOMYCIN 500 MG in NA CHLORIDE 0.9% 100 ML IVPB SCH (08:00)
[2018-07-20] MEDS: PROMOD 30 ML DOSE FT SCH (08:10)
--- NOTE | 2018-07-20 08:30 | P.CNS ---
Date of Consult: 07/20/18 Reason for Consult: Shock Chief Complaint: SOB History of Present Illness: Patient is 73 years of age end-stage renal disease currently aspirated on the floor admitted here currently in shock he is on high doses of Levophed patient is a non-rebreather chest x-ray shows some patchy changes on the right side Allergies No Known Allergies Allergy (Verified 03/18/18 01:25) Home Medications: ALPRAZolam [Xanax] 0.25 mg PO Q6HP PRN 07/14/18 Albuterol Sulfate [Albuterol Sulfate 0.083% Neb Soln] 2.5 mg IH BID 07/14/18 Amlodipine Besylate 10 mg PO DAILY 07/14/18 Atenolol [Tenormin] 25 mg PO Q12HR 07/14/18 Midodrine HCl 10 mg PO 1X PRN 07/14/18 - Past Medical/Surgical History Diabetic: Yes -: stroke 2009 -: DM -: HTN -: extensive coe 2015 -: ESRD with HD ,, fri -: ESRD -: bilateral AKA -: multiple skin grafts -: peg tube -: HD Access -: Tracheostomy - Family History Mother Medical History: Hypertension Sister Medical History: Diabetes - Social History Smoking Status: Unknown if ever smoked Alcohol use: No CD- Drugs: No Caffeine use: No Place of Residence: Home Review of Systems is unable to be obtained Physical Examination Temp Pulse Resp BP Pulse Ox 97.9 F 87 25 H 87/53 L 98 07/20/18 04:00 07/20/18 06:00 07/20/18 06:00 07/20/18 06:00 07/20/18 06:00 General: Unresponsive Neck: Supple Respiratory: Clear to auscultation bilaterally Cardiovascular: Other (Bilateral amputee) Gastrointestinal: Normal bowel sounds, Soft and benign - Problems (1) Shock Current Visit: Yes Status: Acute Plan: Patient is currently in shock hypotensive dialysis patient has end-stage renal disease baseline patient is nonverbal bilateral above knee amputee the excoriation on his back possible sepsis chest x-ray is a little abnormal high concentrations of oxygen Plan is to titrate to Um mean arterial pressure of 60 continue with cefepime vancomycin blood gases possible BiPAP Patient is DNR I have added a stat cortisol level trial of some hydrocortisone vitamin-C and thymine in addition to went up roses all stat blood cultures
[2018-07-20] MEDS ORDERED: VANCOMYCIN 1 GM in NA CHLORIDE 0.9% 250 ML IVPB SCH (09:00)
[2018-07-20] MEDS ORDERED: CEFEPIME 1 GM/VIAL IV SCH (09:00)
[2018-07-20] MEDS ORDERED: WATER FOR INJ,STERILE 10 ML ONE (09:20)
[2018-07-20] MEDS: ASCORBIC ACID 500 MG TABLET PO SCH (09:33)
[2018-07-20] MEDS: HYDROCORTISONE SUC 100 MG INJ IV SCH ×2 (09:33→21:07)
[2018-07-20] MEDS: THIAMINE HCL 100 MG TABLET PO SCH (09:35)
[2018-07-20 09:57] LABS: Arterial Blood Carboxyhemoglob 0.9 % (0-1.5); Blood Gas Oxyhemoglobin 73.4 % (94-97); Blood O2 Saturation 74.4 % (92-98.5)
[2018-07-20 13:26] LABS: Albumin 3.4 g/dL (3.4-5.0); Bilirubin Total 0.3 mg/dL (0.2-1.0); Magnesium 2.3 mg/dL (1.8-2.4); Phosphorus 3.7 mg/dL (2.5-4.9); Potassium 4.2 mmol/L (3.5-5.1); Protein, Total 8.7 g/dL (6.4-8.2)
[2018-07-20] MEDS: NOREPINEPHRINE 8 MG in Dextrose 5%-Water 500 ML IV PRN ×2 (13:58→19:53)
[2018-07-20] MEDS ORDERED: metroNIDAZOLE 250 MG TABLET FT SCH (14:00)
[2018-07-20] MEDS: NA CHLORIDE 0.9% 1,000 ML IV SCH (14:08)
[2018-07-20] MEDS: VANCOMYCIN ORAL SOLN 250 MG/5 ML OSYR PO SCH ×2 (15:09→21:09)
[2018-07-20] MEDS: CEFEPIME/SWI 1gm 1 GM/10 ML SYR IV SCH (17:44)
[2018-07-20 20:54] LABS: Arterial Blood Carboxyhemoglob 0.6 % (0-1.5); Blood O2 Saturation 93.1 % (92-98.5)
--- NOTE | 2018-07-21 00:03 | PN ---
The patient is doing poorly today. In spite of Levophed drip, his blood pressure is still low. I sp adan to the family regarding the poor outcome in view of lack of response. The patient meanwhile will be continued on IV antibiotic. His C difficile is positive. He is started on vancomycin. Generall y, the outlook seems to be poor. DAVID/ALISON Voice ID: [id number] Report ID: [id number]
[2018-07-21 00:13] LABS: Arterial Blood Carboxyhemoglob 1.1 % (0-1.5); Blood O2 Saturation 98.6 % (92-98.5)
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
[2018-07-21 05:57] LABS: Magnesium 2.2 mg/dL (1.8-2.4); Phosphorus 2.1 mg/dL (2.5-4.9)
[2018-07-21 06:26] LABS: Absolute Lymphocytes (CBC) 0.8 K/uL (0.7-4.9); Absolute Monocytes 1.6 K/uL (0.1-1.3); Absolute Neutrophil 3.4 K/uL (1.8-8.0); Basophils % 0.1 % (0-1.3); Eosinophils % 0.5 % (0-4.4); Hematocrit 42.4 % (39.6-49.0); Lymphocytes % 13.4 % (15.3-44.8); MPV 11.1 fL (7.6-11.3); Monocytes % 28.2 % (3.3-12.3); RBC Red Blood Cell Count 4.56 M/uL (4.33-5.43)
[2018-07-21] MEDS: PANTOPRAZOLE 40MG TABLET PO SCH (06:30)
[2018-07-21] MEDS: HYDROCORTISONE SUC 100 MG INJ IV SCH ×2 (08:39→20:17)
[2018-07-21] MEDS: VANCOMYCIN ORAL SOLN 250 MG/5 ML OSYR PO SCH ×4 (08:39→20:16)
[2018-07-21] MEDS: ASCORBIC ACID 500 MG TABLET PO SCH (08:40)
[2018-07-21] MEDS: PROMOD 30 ML DOSE FT SCH (08:40)
[2018-07-21] MEDS: THIAMINE HCL 100 MG TABLET PO SCH (08:40)
[2018-07-21] MEDS: WATER FOR INJ,STERILE 10 ML IV SCH ×2 (08:55→20:17)
[2018-07-21 10:08] LABS: Anisocytosis 1+; Blood Morphology Comment NOTED (NOT SEEN); Platelet Estimate ADEQ
--- NOTE | 2018-07-21 11:27 | RAD REPORT ---
EXAM DESCRIPTION: RAD - Chest Single View - 07/21/2018 10:55 am CLINICAL HISTORY: COPD COMPARISON: July 19 TECHNIQUE: AP portable chest image was obtained 1038 hours . FINDINGS: Lung volumes remain low. There is worsening airspace opacification in the right upper lobe . Perihilar and right lung base airspace disease has not improved. There is retrocardiac opacificatio n on the left also similar to the prior study. Left-sided double-lumen dialysis catheter in place. He art size is prominent. Vasculature is prominent. Both are stable. No pneumothorax or enlarging pleura l effusion. No acute bony abnormality seen. No acute aortic findings suspected. IMPRESSION: Worsening right upper lobe pneumonia or pulmonary edema. Interstitial and alveolar opacities elsewhere in both lung santos are stable.
[2018-07-21] MEDS: NOREPINEPHRINE 8 MG in Dextrose 5%-Water 500 ML IV PRN (12:33)
[2018-07-21] MEDS ORDERED: NEPRO 1,000 ML BOT FT SCH (13:00)
--- NOTE | 2018-07-21 13:05 | P.PN ---
Subjective Date of Service: 07/21/18 Chief Complaint: Shock Subjective: Improving (Patient is improving and yesterday had to be put on BiPAP and he developed significant respiratory acidosis currently stable been weaned off his Levophed) Review of Systems is unable to be obtained Physical Examination - Vital Signs Temperature: 97.5 F Blood Pressure: 100/58 Pulse: 85 Respirations: 13 Pulse Ox (%): 96 - Physical Exam General: Unresponsive Respiratory: Clear to auscultation bilaterally Assessment & Plan - Problems (Diagnosis) (1) Shock Current Visit: Yes Status: Acute Plan: Patient admitted with septic shock no blood cultures have been sent will titrate off BiPAP to a sat of 90% repeat blood gases white count is normal prognosis is very poor start tube feeds at a lower rate the lead blood pool cortisol level was normal Dc steroids
[2018-07-21 15:20] LABS: Arterial Blood Carboxyhemoglob 1.3 % (0-1.5); Blood Gas Oxyhemoglobin 84.2 % (94-97); Blood O2 Saturation 85.8 % (92-98.5)
[2018-07-21] MEDS: CEFEPIME/SWI 1gm 1 GM/10 ML SYR IV SCH (18:36)
[2018-07-21] MEDS ORDERED: VANCOMYCIN 1GM/D5W 1 GM/200 ML BAG IVPB SCH (21:00)
[2018-07-21] MEDS: NA CHLORIDE 0.9% 1,000 ML IV SCH (23:07)
[2018-07-22] MEDS: PIPER/TAZO/NS 2.25gm 2.25 GM/50 ML BAG IVPB SCH ×3 (01:00→16:32)
--- NOTE | 2018-07-22 01:14 | PN ---
Date of Progress Note: 07/21/2018 Subjective: The patient was admitted with respiratory failure, hypotension, found to have drop in hi s blood pressure. For that reason, transferred to ICU. For the last 2 days, the patient did not rec eive any dialysis. Physical Examination: Vital Signs: When I saw the patient, blood pressure of 97/62, pulse of 88. Chest: Crackles bilateral. Heart: S1, S2. Systolic murmur. Abdomen: Soft, nontender. Extremities: Bilateral amputee. Laboratory Data: WBC 5.8, H and H 13.9/42, platelet 122. Sodium 138, potassium 4, bicarb 24, BUN 60 , creatinine 3.6, calcium 9.2, phosphorous 2.2, magnesium 2.2. Current Medications: The patient on include: 1.Cefepime. 2.Vancomycin. 3.Albuterol. 4.Levophed. 5.Epogen. 6.Nepro. 7.Zofran. 8.Hydrocortisone. Assessment And Plan: 1.End-stage renal disease, over volume with marginal blood pressure. I am going to go ahead and do sequential dialysis today and we will monitor the patient. 2.Septic shock. Continue Levophed. We will monitor recovery. 3.Anemia of chronic kidney disease. Continue LUKASZ. 4.Healthcare-associated pneumonia/aspiration. The patient on cefepime. I am going to dose the patient with dose of vancomycin and we will follow up. JENNIFER Voice ID: [id number] Report ID: [id number]
[2018-07-22] MEDS ORDERED: NA CHLORIDE 0.9% 50 ML ONE (01:42)
[2018-07-22] MEDS ORDERED: PIPERACIL/TAZO 2.25 GM VIAL IV ONE (01:42)
[2018-07-22] MEDS ORDERED: VANCOMYCIN 1 GM/VIAL ONE (02:02)
[2018-07-22] MEDS: NA CHLORIDE 0.9% 250 ML IV PRN (02:03)
--- NOTE | 2018-07-22 02:53 | PN ---
The patient looks more alert today. His blood pressure is still low, however, more stable. In view of this, the patient will be continued on BiPAP without which he is retaining CO2. The patient will be continued on IV antibiotic and he is due for dialysis that will be Nephrology Services to render. DAVID/ALISON Voice ID: [id number] Report ID: [id number]
[2018-07-22 05:31] LABS: Albumin 2.8 g/dL (3.4-5.0); Phosphorus 2.1 mg/dL (2.5-4.9); Potassium 3.4 mmol/L (3.5-5.1)
[2018-07-22] MEDS: PANTOPRAZOLE 40MG TABLET PO SCH (06:17)
[2018-07-22] MEDS: WATER FOR INJ,STERILE 10 ML IV SCH ×2 (08:09→20:36)
[2018-07-22] MEDS: HYDROCORTISONE SUC 100 MG INJ IV SCH ×2 (08:09→20:36)
[2018-07-22] MEDS: PROMOD 30 ML DOSE FT SCH ×2 (08:09→20:37)
[2018-07-22] MEDS: VANCOMYCIN ORAL SOLN 250 MG/5 ML OSYR PO SCH ×4 (08:09→20:36)
[2018-07-22] MEDS: ASCORBIC ACID 500 MG TABLET PO SCH (08:10)
[2018-07-22] MEDS: THIAMINE HCL 100 MG TABLET PO SCH (08:10)
[2018-07-22] MEDS ORDERED: VANCOMYCIN/NS 1 gm 1 GM/250 ML BAG IVPB SCH (08:30)
--- NOTE | 2018-07-22 11:41 | RAD REPORT ---
EXAM DESCRIPTION: RAD - Chest Single View - 07/22/2018 11:33 am CLINICAL HISTORY: Shortness of breath, volume overload versus pneumonia COMPARISON: July 21 TECHNIQUE: AP portable chest image was obtained 1118 hours . FINDINGS: Right upper lobe airspace opacification has shown significant improvement. Overall interst itial and vascular pattern has improved. Retrocardiac left base opacification is still present showin g only slight improvement. Left-sided dialysis catheter is in place. Trachea is midline. Heart size is normal range. No pneumoth orax or pleural effusion. No acute bony abnormality seen. No acute aortic findings suspected. IMPRESSION: Patient shows a mixed pattern. The decreasing central vasculature and lung markings are more typical for resolving failure/volume overload. The improved right upper lobe airspace opacification findings are more typical for a resolving pneumo basilia.
--- NOTE | 2018-07-22 19:02 | PN ---
Date of Progress Note: 07/22/2018 Subjective: The patient had a compromise of function. His blood pressure dropped yesterday. Had to be back on BiPAP. We managed to do dialysis yesterday, and we managed to remove 2900 as a sequentia l. The patient still on BiPAP. The patient is off pressor. Physical Examination: Vital Signs: Blood pressure 101/53, pulse of 72. Chest: Crackles bilateral. Heart: S1, S2. Systolic murmur. Abdomen: Soft, nontender. Extremities: Bilateral above-knee amputation. Laboratory Data: H and H 13.9/42.4. Sodium 137, potassium 3.4, bicarb 22, BUN 93, creatinine 3.9, c alcium 9.5, phosphorous 2.1, albumin 2.8. Repeated chest x-ray today, decreased central congestion, improved on the right upper lobe airspace opacification, more typical for resolving pneumonia, resolv ing over-volume. Medications: Current medications the patient on include Zosyn 2.25 q.8, vancomycin. Epogen, Nepro, hydrocortisone 50 q.12 was started. Assessment And Plan: 1.End-stage renal disease, was over-volume, responding very well to dialysis yesterday. I again arr anged for another session of dialysis tomorrow, and the patient is going to be dialyzed on low temper ature bath, and we will dialyze on sodium module. The patient is going to get midodrine before dialy sis, and we will follow up. 2.Hypertension, currently low blood pressure. We will keep the patient on p.r.n. midodrine. 3.Septic shock secondary to pneumonia, healthcare-associated pneumonia with respiratory failure. We will follow up with Pulmonary. Continue BiPAP and continue midodrine. Antibiotic has been adjusted. We will follow up culture. LUMA/ALISON Voice ID: [id number] Report ID: [id number]
[2018-07-23] MEDS: PIPER/TAZO/NS 2.25gm 2.25 GM/50 ML BAG IVPB SCH ×3 (00:31→17:24)
--- NOTE | 2018-07-23 01:08 | PN ---
The patient's condition generally is not any different. His feeding is restarted with a low volume t o see whether he would tolerate. His IV antibiotics and oral antibiotics will be continued and dialy sis planned. Yesterday CBC showed less bands, probably indicative of positive response from antibiot ics. The patient still needs BiPAP. DAVID/ALISON Voice ID: [id number] Report ID: [id number]
[2018-07-23] MEDS: PANTOPRAZOLE 40MG TABLET PO SCH (06:30)
[2018-07-23 06:48] LABS: Albumin 2.6 g/dL (3.4-5.0); Phosphorus 1.9 mg/dL (2.5-4.9); Potassium 3.1 mmol/L (3.5-5.1)
[2018-07-23] MEDS: PROMOD 30 ML DOSE FT SCH ×2 (09:00→21:49)
[2018-07-23] MEDS: WATER FOR INJ,STERILE 10 ML IV SCH ×2 (09:00→21:45)
[2018-07-23] MEDS: NA CHLORIDE 0.9% 1,000 ML IV SCH (09:27)
[2018-07-23] MEDS: THIAMINE HCL 100 MG TABLET PO SCH (09:30)
[2018-07-23] MEDS: ASCORBIC ACID 500 MG TABLET PO SCH (09:30)
[2018-07-23] MEDS: HYDROCORTISONE SUC 100 MG INJ IV SCH ×2 (09:30→21:47)
[2018-07-23] MEDS: VANCOMYCIN ORAL SOLN 250 MG/5 ML OSYR PO SCH ×4 (09:31→21:45)
--- NOTE | 2018-07-23 12:58 | P.PN ---
Subjective Date of Service: 07/23/18 Chief Complaint: Shock Non communicative On BiPAP Off pressers will cont HD TTsat bandemia and Sepsis , on Abx Physical Examination - Vital Signs Temperature: 97.1 F Blood Pressure: 147/92 Pulse: 78 Respirations: 22 Pulse Ox (%): 96 - Physical Exam General: Alert (On BiPAP) Neck: Supple, Without JVD or thyroid abnormality Respiratory: Clear to auscultation bilaterally Cardiovascular: No edema, Regular rate/rhythm, Normal S1 S2, No rubs, No murmurs Assessment And Plan - Current Problems (Diagnosis) (1) Dyspnea Onset Date: 07/08/17 Current Visit: No Status: Acute (2) ESRD (end stage renal disease) Onset Date: 03/18/18 Current Visit: No Status: Chronic (3) Hypoxia Onset Date: 03/09/18 Current Visit: No Status: Acute (4) Pulmonary edema Onset Date: 03/18/18 Current Visit: No Status: Acute - Plan Pt is unable to provide Hx, Hx obtained from chart A 73-year-old gentleman with past medical history of hypertension, ESRD on HD via PC ,hypertension, and PVD S/p B/l AKA., S/P pEG tube Pt was admitted for SOB , pt was ready for diachrage , then he became hypotesnive , labs significant for bandemia likely due to aspiration pneumonia ESRD on home HD TTsat Will cont TTsat for now can be discharged and resume HD at home TTsat need to fu with nephrology clinic Cont to hold BP meds Cont midodrine need to follow with nephrology clinic to adjust HD prescription Anemia LUKASZ Septic shock Off pressers now Cont Abx Monitor Vanco level on HD days before HD and dose as per level
--- NOTE | 2018-07-23 14:31 | P.PN ---
Subjective Date of Service: 07/23/18 Chief Complaint: Respiratory failure Subjective: Improving (Patient is improving in shock is resolved currently on BiPAP) Review of Systems is unable to be obtained Physical Examination - Vital Signs Temperature: 97.1 F Blood Pressure: 124/75 Pulse: 79 Respirations: 15 Pulse Ox (%): 96 - Physical Exam General: Unresponsive Respiratory: Clear to auscultation bilaterally Cardiovascular: No edema Assessment & Plan - Problems (Diagnosis) (1) Shock Current Visit: Yes Status: Acute Plan: Patient shock is is all discontinue hydrocortisone cultures all negative however they were sent after the antibiotics were started this time and randomly Dc the order for blood cultures (2) Respiratory failure Current Visit: Yes Status: Acute Plan: Patient is requiring BiPAP is only on 30% oxygen patient's chest x-ray significantly improving titrate sat to 90% repeat ABG he may not need BiPAP transfer to the floor tolerating tube feeds seen by dietitian Qualifiers: Chronicity: acute on chronic
[2018-07-23 17:18] LABS: Arterial Blood Carboxyhemoglob 1.3 % (0-1.5); Blood Gas Oxyhemoglobin 87.2 % (94-97)
--- NOTE | 2018-07-24 | PN ---
The patient looks much better today. He is responding to verbal stimuli by opening eyes. The patien t is tolerating the formula. In view of these and in view of that he is DNR, the patient is transfer red to floor, where he will be followed and BiPAP will be continued for now. DAVID/ALISON Voice ID: [id number] Report ID: [id number]
[2018-07-24] MEDS: PIPER/TAZO/NS 2.25gm 2.25 GM/50 ML BAG IVPB SCH ×4 (01:31→17:07)
[2018-07-24] MEDS: PANTOPRAZOLE 40MG TABLET PO SCH (06:28)
[2018-07-24 06:48] VITALS: BMI 20.5
[2018-07-24 06:54] LABS: Albumin 2.6 g/dL (3.4-5.0); Phosphorus 2.2 mg/dL (2.5-4.9); Potassium 3.2 mmol/L (3.5-5.1)
[2018-07-24] MEDS: MIDODRINE HCL 5 MG TABLET PO PRN (07:00)
[2018-07-24] MEDS: INSULIN -REGULAR HUMAN 50 UNIT/0.5 ML ML SQ SCH ×3 (07:04→18:00)
[2018-07-24] MEDS ORDERED: GLUCAGON 1 MG/VIAL IM PRN (07:04)
[2018-07-24] MEDS ORDERED: D50W 25 GM/50 ML SYRINGE IV PRN (07:04)
[2018-07-24] MEDS: ALBUMIN HUMAN 25% 50 ML IV SCH ×2 (08:37→10:09)
[2018-07-24] MEDS: VANCOMYCIN ORAL SOLN 250 MG/5 ML OSYR PO SCH ×4 (09:00→20:28)
[2018-07-24] MEDS: THIAMINE HCL 100 MG TABLET PO SCH (09:00)
[2018-07-24] MEDS: WATER FOR INJ,STERILE 10 ML IV SCH ×2 (09:00→20:29)
[2018-07-24] MEDS: PROMOD 30 ML DOSE FT SCH ×2 (09:00→21:29)
[2018-07-24] MEDS: HYDROCORTISONE SUC 100 MG INJ IV SCH ×2 (09:00→20:29)
[2018-07-24] MEDS: ASCORBIC ACID 500 MG TABLET PO SCH (09:00)
[2018-07-24] MEDS: NA CHLORIDE 0.9% 1,000 ML IV SCH ×2 (17:08→20:27)
--- NOTE | 2018-07-24 20:32 | P.PN ---
Subjective Date of Service: 07/24/18 Chief Complaint: Respiratory failure Non communicative BP ok HD today will cont HD MWF for now bandemia and Sepsis , on Abx monitor vanco level Physical Examination - Vital Signs Temperature: 97.4 F Blood Pressure: 138/60 Pulse: 73 Respirations: 20 Pulse Ox (%): 93 - Physical Exam General: Other (non communicative ) HEENT: Atraumatic Neck: Supple, Without JVD or thyroid abnormality Respiratory: Clear to auscultation bilaterally, Normal air movement Cardiovascular: No edema, Normal S1 S2 Assessment And Plan - Current Problems (Diagnosis) (1) Dyspnea Onset Date: 07/08/17 Current Visit: No Status: Acute (2) ESRD (end stage renal disease) Onset Date: 03/18/18 Current Visit: No Status: Chronic (3) Hypoxia Onset Date: 03/09/18 Current Visit: No Status: Acute (4) Pulmonary edema Onset Date: 03/18/18 Current Visit: No Status: Acute - Plan Pt is unable to provide Hx, Hx obtained from chart A 73-year-old gentleman with past medical history of hypertension, ESRD on HD via PC ,hypertension, and PVD S/p B/l AKA., S/P pEG tube Pt was admitted for SOB , pt was ready for diachrage , then he became hypotesnive , labs significant for bandemia likely due to aspiration pneumonia ESRD on home HD TTsat HD today , then will do MWF Cont midodrine need to follow with nephrology clinic to adjust HD prescription Anemia LUKASZ Septic shock Off pressers now Cont Abx Monitor Vanco level on HD days before HD and dose as per level C.diff on PO vanco
[2018-07-25] MEDS: PIPER/TAZO/NS 2.25gm 2.25 GM/50 ML BAG IVPB SCH ×3 (01:47→18:43)
[2018-07-25] MEDS: PANTOPRAZOLE 40MG TABLET PO SCH (05:42)
[2018-07-25] MEDS: INSULIN -REGULAR HUMAN 50 UNIT/0.5 ML ML SQ SCH ×4 (06:37→18:00)
[2018-07-25 06:40] LABS: Absolute Lymphocytes (CBC) 1.4 K/uL (0.7-4.9); Absolute Monocytes 1.1 K/uL (0.1-1.3); Absolute Neutrophil 10.8 K/uL (1.8-8.0); Basophils % 0.2 % (0-1.3); Eosinophils % 0.3 % (0-4.4); Hematocrit 29.7 % (39.6-49.0); Lymphocytes % 10.7 % (15.3-44.8); MPV 10.5 fL (7.6-11.3); Monocytes % 8.4 % (3.3-12.3); RBC Red Blood Cell Count 3.23 M/uL (4.33-5.43)
[2018-07-25 07:09] LABS: ALT/SGPT 16 U/L (12-78); Albumin 2.7 g/dL (3.4-5.0); Alkaline Phosphatase 97 U/L (45-117); BUN Blood Urea Nitrogen 107 mg/dL (7-18); Bicarbonate 23 mmol/L (21-32); Bilirubin Total 0.3 mg/dL (0.2-1.0); Glucose Level 192 mg/dL (74-106); Phosphorus 2.5 mg/dL (2.5-4.9); Protein, Total 7.7 g/dL (6.4-8.2); Sodium Level 143 mmol/L (136-145)
[2018-07-25 07:18] LABS: Anisocytosis 1+; Blood Morphology Comment NOTED (NOT SEEN); Platelet Estimate ADEQ; Platelets, Giant FEW; Polychromasia 1+; Urine White Blood Cell Casts OK
[2018-07-25 07:31] LABS: AST/SGOT < 3 U/L (15-37)
[2018-07-25 07:35] LABS: Potassium 2.8 mmol/L (3.5-5.1)
[2018-07-25] MEDS ORDERED: VANCOMYCIN 750 MG in NA CHLORIDE 0.9% 150 ML IVPB SCH ×2 (09:00→13:00)
[2018-07-25] MEDS: WATER FOR INJ,STERILE 10 ML IV SCH ×2 (09:00→21:17)
[2018-07-25] MEDS ORDERED: POTASSIUM 25 MEQ EFFERV TAB PO ONE (09:00)
[2018-07-25] MEDS: HYDROCORTISONE SUC 100 MG INJ IV SCH ×2 (10:05→21:16)
[2018-07-25] MEDS: THIAMINE HCL 100 MG TABLET PO SCH (10:07)
[2018-07-25] MEDS: ASCORBIC ACID 500 MG TABLET PO SCH (10:07)
[2018-07-25] MEDS: VANCOMYCIN ORAL SOLN 250 MG/5 ML OSYR PO SCH ×4 (10:08→21:17)
[2018-07-25] MEDS: PROMOD 30 ML DOSE FT SCH ×2 (12:45→21:16)
[2018-07-25] MEDS ORDERED: VANCOMYCIN 500 MG in NA CHLORIDE 0.9% 150 ML IVPB SCH (18:00)
--- NOTE | 2018-07-25 20:23 | RAD REPORT ---
EXAM DESCRIPTION: RAD - Chest Single View - 07/25/2018 8:17 pm CLINICAL HISTORY: increase in WBC and breath sounds Chest pain. COMPARISON: Chest Single View dated 07/22/2018; Chest Single View dated 07/21/2018; Chest Single Vie w dated 07/19/2018; Chest Single View dated 07/15/2018 FINDINGS: Portable technique limits examination quality. Poorly defined airspace opacities in the right upper lobe suspicious for infiltrate/ pneumonia. A sma ll left pleural effusion is likely present. The heart is normal in size. Left-sided venous catheter h as tip in right atrium. IMPRESSION: Developing right upper lobe pneumonia/ infiltrate.
--- NOTE | 2018-07-25 21:28 | PN ---
Date of Progress Note: 07/25/2018 NEPHROLOGY FOLLOWUP Subjective: The patient was admitted with over volume, respiratory distress, developed aspiration wi th pneumonia and septic shock, being dialyzed for the last couple of days on conventional dialysis, r ecovered, responds very well. Physical Examination: VITAL SIGNS: When I saw the patient, blood pressure of 142/88, pulse of 88. CHEST: Faint crackles on the left base. HEART: S1, S2 regular. ABDOMEN: Soft. Nontender. EXTREMITIES: No edema. Bilateral above knee amputation. Laboratory Data: WBC 13.4, H and H 9.9/29.7. Sodium 143, potassium 2.8, bicarb 23, BUN 107, creatin ine is 3.4, calcium 8.9, phosphorus 2.9. Culture still negative. Current Medications: The patient is on include: 1.Tylenol. 2.Albumin. 3.Vitamin C. 4.Tube feeding. 5.Midodrine. 6.Zosyn. 7.Thiamine. 8.Vancomycin. Assessment And Plan: 1.End-stage renal disease. We will continue the patient on conventional dialysis. We will arrange for the dialysis Friday. 2.Disproportion in BUN and creatinine because of the pneumonia and catabolic. Unfortunately, we can not challenge the patient as the patient is so fragile on the blood pressure. 3.Hypertension with multiple incidents of low blood pressure on the machine. I rather accept elevat ed blood pressure than having incidents of low blood pressure on the dialysis. 4.Pneumonia, continue current antibiotic. 5.History of cerebrovascular accident. Continue supportive care. JENNIFER Voice ID: [id number] Report ID: [id number]
[2018-07-25] MEDS ORDERED: NEPRO 1,000 ML BOT FT SCH (23:00)
--- NOTE | 2018-07-26 00:08 | PN ---
Date of Progress Note: 07/24/2018 The patient generally is doing well. He had dialysis done. No desaturation or hypotension. The pat ient will be continued along the same lines. DAVID/ALISON Voice ID: [id number] Report ID: [id number]
--- NOTE | 2018-07-26 00:08 | PN ---
Date of Progress Note: 07/25/2018 The patient has good saturations. However, his white count is high. A repeat chest x-ray will be do ne to see whether he has any worsening of his pulmonary situation. The patient, meanwhile, is gettin g the vancomycin IV, which will be continued. DAVID/ALISON Voice ID: [id number] Report ID: [id number]
[2018-07-26] MEDS: PIPER/TAZO/NS 2.25gm 2.25 GM/50 ML BAG IVPB SCH ×4 (00:35→17:00)
[2018-07-26] MEDS: NA CHLORIDE 0.9% 1,000 ML IV SCH (00:36)
[2018-07-26] MEDS ORDERED: PANTOPRAZOLE 40 MG INJ IVP ONE (03:47)
[2018-07-26] MEDS ORDERED: NA CHLORIDE 0.9% 250 ML IV ONE (03:47)
[2018-07-26] MEDS ORDERED: DESMOPRESSIN 4 MCG/ML AMP IV ONE ×2 (04:41→04:56)
[2018-07-26] MEDS ORDERED: DESMOPRESSIN 4 MCG/ML AMP ONE (05:00)
[2018-07-26] MEDS ORDERED: DESMOPRESSIN IV SCH (05:00)
[2018-07-26] MEDS ORDERED: NA CHLORIDE 0.9% IV SCH (05:00)
[2018-07-26] MEDS ORDERED: DESMOPRESSIN 20 MCG in NA CHLORIDE 0.9% 50 ML IV SCH (05:00)
[2018-07-26] MEDS ORDERED: NA CHLORIDE 0.9% 50 ML ONE (05:11)
[2018-07-26] MEDS: PANTOPRAZOLE 40MG TABLET PO SCH (05:41)
[2018-07-26] MEDS: INSULIN -REGULAR HUMAN 50 UNIT/0.5 ML ML SQ SCH ×4 (06:00→12:00)
[2018-07-26 06:31] LABS: Absolute Lymphocytes (CBC) 1.7 K/uL (0.7-4.9); Absolute Monocytes 1.2 K/uL (0.1-1.3); Absolute Neutrophil 15.5 K/uL (1.8-8.0); Basophils % 0.1 % (0-1.3); Eosinophils % 0.1 % (0-4.4); Hematocrit 21.2 % (39.6-49.0); Lymphocytes % 9.1 % (15.3-44.8); MPV 10.9 fL (7.6-11.3); Monocytes % 6.7 % (3.3-12.3); RBC Red Blood Cell Count 2.27 M/uL (4.33-5.43)
[2018-07-26 06:43] LABS: Albumin 2.1 g/dL (3.4-5.0); Phosphorus 4.1 mg/dL (2.5-4.9); Potassium 3.7 mmol/L (3.5-5.1)
[2018-07-26 07:11] LABS: Blood Morphology Comment NOT SEEN (NOT SEEN); Platelet Estimate ADEQ; Urine White Blood Cell Casts OK
[2018-07-26] MEDS ORDERED: NA CHLORIDE 0.9% 250 ML ONE (08:47)
[2018-07-26] MEDS: WATER FOR INJ,STERILE 10 ML IV SCH (09:00)
[2018-07-26 09:08] VITALS: TEMP 97
[2018-07-26] MEDS: VANCOMYCIN ORAL SOLN 250 MG/5 ML OSYR PO SCH ×3 (09:14→17:00)
[2018-07-26] MEDS: ASCORBIC ACID 500 MG TABLET PO SCH (09:14)
[2018-07-26] MEDS: THIAMINE HCL 100 MG TABLET PO SCH (09:14)
[2018-07-26] MEDS: HYDROCORTISONE SUC 100 MG INJ IV SCH (09:15)
[2018-07-26] MEDS: PROMOD 30 ML DOSE FT SCH (09:16)
[2018-07-26] MEDS ORDERED: OCTREOTIDE 500 MCG in NA CHLORIDE 0.9% 500 ML IV SCH (11:00)
[2018-07-26] MEDS ORDERED: PANTOPRAZOLE INJ 80 MG in NA CHLORIDE 0.9% 250 ML IV SCH (13:00)
[2018-07-26] MEDS ORDERED: NOREPINEPHRINE 4 MG in D5W 250 ML IV PRN (14:05)
[2018-07-26] MEDS: NOREPINEPHRINE 8 MG in Dextrose 5%-Water 500 ML IV PRN (14:58)
[2018-07-26] MEDS: MIDODRINE HCL 5 MG TABLET PO PRN (15:05)
[2018-07-26] MEDS ORDERED: MIDODRINE HCL 5 MG TABLET PO ONE (16:00)
--- NOTE | 2018-07-26 16:42 | CON ---
Date of Consultation: 07/26/2018 Brief History Of Present Illness: The patient is a 73-year-old gentleman, who prese nts to the hospital with aspiration, admitted to the floor on July 14 I believe, so he has been in the hospital approximately 2 weeks. He has a significant medical history including a stroke and as such, he is nonverbal. He has had multiple challenges during his admission including hypotension, sepsis, pneumonia, and just as of last night he had a significant gastrointestinal bleed with dark m elanotic stool per rectum of a significant volume in addition to a drop in his hemoglobin and hypoten sourav. He was transferred to the ICU and I had the opportunity to examine the patient as well as bassem riggins with the patient's . The patient's has informed me that he has a history of bleeding ulce rs, which were evaluated in [facility] approximately 2 years ago and required endoscopy at that time. He never received a colonoscopy that she can recall. The last colonoscopy was approximately [address] Brantley. She was unaware of the findings at that time. The EGD, however, showed a bleeding gastric ulcer, which was controlled at that time. She is unsure of how it was controlled bu t believes it was by medications and not with endoscopic control. It was simply to evaluate and docu ment the presence of a gastric ulcer. He comes into the ICU today with the hypotension and GI bleedi ng. As such, I am consulted to see the patient for this. He remains hemodynamically unstable during my examination and as such, the patient was receiving 2 units of PRBC's and I have initiated transfu sourav of platelets as well as fresh frozen plasma. Past Medical History: Significant for stroke in 2009; diabetes; hypertension; extensive coe in 201 6, status post multiple skin grafts; end-stage renal disease, on hemodialysis Friday, , Satu . Past Surgical History: Surgeries include bilateral AKAs, multiple skin grafts, PEG tube placement, h emodialysis catheter in the left IJ, tracheostomy in the past and EGD and colonoscopy as described. Home Medications: Include Xanax, albuterol, amlodipine, atenolol, Midodrine. Allergies: NO KNOWN DRUG ALLERGIES. Family History: Unable to obtain. Social History: Smoking status unknown. Review of Systems: Unable to obtain. Physical Examination: Vital Signs: At the time of my examination, his BMI was 20.6. His blood pressure was 96/56 with a p ulse of 81, respiratory rate 24, saturation 97% on nasal cannula 2 L. General: He is awake. He is alert, but he is nonverbal. He does not communicate by any methods reina reciable. He does look around, but other than this, there is no indication of response. HEENT: Otherwise, he is normocephalic. His sclerae are anicteric. His mucous membranes are somewha t dry. His oropharynx is clear. Neck: Supple with no JVD. There is a catheter in place in the left IJ, tunneled hemodialysis cathet er. Chest: Normal expansion and excursion. Cardiovascular: Regular rate and rhythm. Pulmonary: Decreased breath sounds and wheezes bilaterally. Abdomen: Soft. There are multiple skin grafts all over his body from a skin examination. Extremities: He has bilateral AKAs, which are also covered with chest with skin graft repairs upper extremities. He has a midline left arm and he has contractures in all 4 extremities. He has a tremo r of the right index finger. Otherwise, no other movements appreciated other than resistance to head movement on examination. Laboratory Data: Revealed a white blood cell count of 18.4, hemoglobin 6.9, down from 9.9 yesterday and a hematocrit of 21.2. His platelet count is 141, neutrophils are 84%. His sodium is 148, potass ium 3.7, chloride 111, carbon dioxide 22. BUN is 137, creatinine 4, glucose is 216, calcium 8.2. Hi s phos is 4.1. He had a chest x-ray performed on 07/25, which was officially read as developing righ t upper lobe pneumonia/infiltrate. Assessment/plan: 1.This is a 73-year-old male with a gastrointestinal bleed, likely from upper GI source given his hi story, however, there is no confirmation at this time. 2.He has hemodynamic instability, as such I recommend blood product resuscitation 1:1:1. I have ini tiated transfusion of FFP and platelets in addition to the 2 units PRBCs already ordered. We will re -evaluate at that time and see if he obtains better hemostatic stability at this time. 3.The patient is going to be given Protonix IV as well as Sandostatin. 4.Continue medical management. 5.I spoke with the family and Dr. Marin. His was initially against the transfer. However give n his current gastrointestinal bleed and his hemodynamic instability, he is not a candidate for EGD c olonoscopy at this time. I recommend transfer also to a higher level of care when stabilized so that he can be evaluated with CT angiogram to see if there is an endovascular option to treat his current bleeding situation. If this is not an option and he stabilizes, we will consider EGD and possibly c olonoscopy to obtain hemostasis and evaluate for the possibility of a recurrent ulcer disease. 6.I have explained the risks, benefits, and alternatives of the above stated plan and the patient's agrees to proceed as indicated. Thank you for this interesting consult. FELICE Voice ID: [id number] Report ID: [id number]
[2018-07-26 17:04] VITALS: BP 54/40
--- NOTE | 2018-07-26 18:03 | PN ---
The patient started having a GI bleeding with ilan rectal bleeding. I spoke to his around 4 o' clock this morning. She did want him to be transferred. I told her that we do not have GI consultan ts, still she insisted treating him here. The patient has low hemoglobin and hematocrit, packed RBC has been ordered. Also transferred the patient to ICU. I spoke to her this morning again and she di d not want him to be transferred, however, after he was transferred to ICU at the suggestion of Dr. Mery agosto, she decided to go with the transfer, however, his blood pressure was running low. This was e xplained to the patient's . She [facility] go [facility] I sign ed the transfer forms. The patient needs procedure to see the source of bleeding and management. Th is was explained to the as part of the plan and reason for transfer. DAVID/ALISON Voice ID: [id number] Report ID: [id number]
--- NOTE | 2018-07-26 19:42 | PN ---
Date of Progress Note: 07/26/2018 NEPHROLOGY FOLLOWUP Subjective: The patient over the night developed low blood pressure and rectal bleed. We gave DDAVP and the patient transferred to ICU. The patient started developing some hypoxemia, placed on nasal cannula. Physical Examination: Vital Signs: When I saw the patient, blood pressure of 96/64, pulse of 88. Chest: Faint crackles on the base. Heart: S1, S2 regular. Systolic murmur. Abdomen: Soft, nontender. PEG tube. Extremities: Bilateral above-knee amputation. Laboratory Data: WBC 18.4, H and H are 6.9/21.2, platelet of 141. Sodium 148, potassium 3.7, bicarb 22, BUN 137, creatinine of 4, calcium 8.4, phosphorus 4.1. Current Medications: Include: 1.Epogen. 2.Tube feeding. 3.Vitamin C. 4.Pantoprazole. 5.Octreotide. 6.Zosyn. Assessment And Plan: 1.End-stage renal disease with significant anemia and severe disproportion BUN and creatinine second jesenia to the gastrointestinal bleed. I am going to go ahead and arrange for transfusion. We will arra nge for early treatment today. We will dialyze the patient without any heparin and we will monitor th e patient. Mostly, the patient is going to need another session tomorrow. 2.Hypertension, currently hypotension. Hold all blood pressure medication. We will use midodrine. 3.Anemia secondary to renal failure and gastrointestinal bleed. Continue Omnicef. Continue Epogen. Continue transfusion. We will arrange for transfusion today. 4.Rectal bleed. Giving DDAVP, placed on Sandostatin and we will transfuse. We will send for INR to rule out any DIC. 5.Pneumonia aspiration responds very well to current antibiotic. We will follow up. 6.Leukocytosis secondary to reactive to bleed. We will continue current antibiotic. We will follow up. The patient has overall poor prognosis. Case discussed with family, verbalized understanding. Discussed with the staff, agreed on the plan. JENNIFER Voice ID: [id number] Report ID: [id number]
[2018-07-26 20:15] VITALS: O2SAT 90
--- NOTE | 2018-08-29 16:10 | DS ---
Date of Discharge: 07/26/2018 Date Of Expiration: 07/26/2018. Final Diagnoses: 1.Gastrointestinal bleeding. 2.Respiratory failure. 3.Septic shock. 4.Bilateral leg amputation, quadriplegia status. 5.PEG tube status. 6.Type 2 diabetes. 7.Chronic hemodialysis. 8.Malnutrition with hypoalbuminemia. Hospital Course: Initially, the patient was admitted because of evidence of volume overload and pulm onary edema with respiratory failure. After the patient was admitted, the patient underwent dialysis . The patient showed improvement of his respiratory status. However, he started having episodes of low blood pressure. The patient was managed by Nephrology Service regarding fluid intake as well as taking out of fluid during dialysis. The patient generally did well and he was ready to be discharge d on 07/18/2018, at which point, the patient developed an episode of hypotension and aspiration durin g dialysis. The patient was hypoxic and the patient was not a candidate for resuscitation or intubat ion. The patient was given antibiotics. Supplemental oxygen. Pulmonary consultation also was done. Later, in view of his DNR status, he was continued along the same lines and the patient received Le vophed for pressure support. The patient was continued to be seen by Nephrology Services. In view o f needing vasopressors and hypoxia, it was felt that the patient had a bad prognosis. The patient, ngozi bowling, started showing improvement with improvement of his blood pressure status. The patient, carmen sheldon, certainly started having rectal bleeding. There was no GI environmental consultant and the patient, however, could not be transferred as his did not want him to be transferred. However, because of continu ed issues, the patient was transferred to ICU. At this point, Dr. Smith was consulted to see [facility] er any interventions could be done to stabilize him. Dr. Smith talked to and because of the d eteriorating situation, she decided to have him transferred. Transfer orders were signed. However, the patient continued to have hypotension. Transfer could not be done. The patient on 07/26. For detail notes, please follow the progress notes, consultations. Laboratory is extensive. Please refer to the chart. JOVITAK/MODL Voice ID: [id number] Report ID: [id number]
== END 2018-07-26 16:59 | disposition expired | DRG 640 ==
LOC: ER 18:54 → ERHOLD 23:22 → 4TH 23:25 → 3RD-ICU 07-19 22:57 → 4TH 07-23 16:25 → 3RD-ICU 07-26 11:03
PROVIDERS: ADMIT Internal Medicine; ATTEND Internal Medicine
PROC: 5A1D70Z Performance of Urinary Filtration, Intermittent, Less than 6 Hours Per Day (ICD-10-PCS; 2018-07-13)
PROC: 5A09457 Assistance with Respiratory Ventilation, 24-96 Consecutive Hours, Continuous Positive Airway Pressure (ICD-10-PCS; principal; 2018-07-20)
PROC: 30233K1 Transfusion of Nonautologous Frozen Plasma into Peripheral Vein, Percutaneous Approach (ICD-10-PCS; 2018-07-26)
PROC: 30233N1 Transfusion of Nonautologous Red Blood Cells into Peripheral Vein, Percutaneous Approach (ICD-10-PCS; 2018-07-26)
PROC: 30233R1 Transfusion of Nonautologous Platelets into Peripheral Vein, Percutaneous Approach (ICD-10-PCS; 2018-07-26)
DX: E87.70 Fluid overload, unspecified (principal); J81.0 Acute pulmonary edema; A41.9 Sepsis, unspecified organism; J69.0 Pneumonitis due to inhalation of food and vomit; R65.21 Severe sepsis with septic shock; J96.21 Acute and chronic respiratory failure with hypoxia; N18.6 End stage renal disease; K92.2 Gastrointestinal hemorrhage, unspecified; I12.0 Hypertensive chronic kidney disease with stage 5 chronic kidney disease or end stage renal disease; A04.72 Enterocolitis due to Clostridium difficile, not specified as recurrent; E44.0 Moderate protein-calorie malnutrition; D62 Acute posthemorrhagic anemia; Z89.612 Acquired absence of left leg above knee; Z89.611 Acquired absence of right leg above knee; E11.22 Type 2 diabetes mellitus with diabetic chronic kidney disease; Z99.2 Dependence on renal dialysis; D63.1 Anemia in chronic kidney disease; I69.320 Aphasia following cerebral infarction; Z66 Do not resuscitate; E87.2 Acidosis
CPT/HCPCS: 36415; 71045; 80048; 80053; 80069; 80076; 80202; 82274; 82533; 82805; 82962; 83605; 83735; 83880; 83970; 84100; 84132; 84484; 85025; 85610; 86850; 86900; 86901; 87040; 87493; 90935; 93005; 94640; 94660; 94760; 99285; C9113; J0692; J1644; J1720; J2354; J2405; J2543; J2597; J3370; J7030; J7060; P9016; P9035; P9047; Q4081